=== PATIENT | female | born 1935 | race Caucasian/White ===

== ENCOUNTER 2016-11-10 11:15 | Outpatient (CLI) | payer OTHER | END 2016-11-10 11:16 | disposition home or self-care (01) | DX: N39.0 Urinary tract infection, site not specified (principal) ==

== ENCOUNTER 2016-11-12 | Outpatient (CLI) | END 2016-11-12 23:52 | disposition EMS.NT ==

== ENCOUNTER 2016-11-16 | Outpatient (CLI) | payer OTHER | END 2016-11-16 09:16 | disposition EMS.NT ==

== ENCOUNTER 2017-01-01 14:57 | Emergency (ER) | payer OTHER ==
[2017-01-01] MEDS ORDERED: CIPROFLOXACIN 250 MG TABLET PO STA (15:54)
[2017-01-01] MEDS ORDERED: CIPROFLOXACIN 250 MG TABLET PO ONE (16:09)
== END 2017-01-01 16:14 | disposition home or self-care (01) ==
DX: N30.00 Acute cystitis without hematuria (principal); I10 Essential (primary) hypertension; G30.9 Alzheimer's disease, unspecified; F02.80 Dementia in other diseases classified elsewhere, unspecified severity, without behavioral disturbance, psychotic disturbance, mood disturbance, and anxiety
CPT/HCPCS: 81001; 87086; 99283; A9270

== ENCOUNTER 2017-01-02 | Outpatient (CLI) | payer OTHER | END 2017-01-02 09:24 | disposition critical access hospital (66) | DX: R46.4 Slowness and poor responsiveness (principal) | CPT/HCPCS: A0425; A0427 ==

== ENCOUNTER 2017-01-02 09:52 | Emergency (ER) | payer OTHER ==
[2017-01-02] MEDS ORDERED: SODIUM CHLORIDE 0.9% 1,000 ML IV ONE (09:56)
[2017-01-02] MEDS ORDERED: CIPROFLOXACIN 250 MG TABLET PO STA (11:32)
[2017-01-02] MEDS ORDERED: CIPROFLOXACIN 250 MG TABLET PO ONE (11:41)
== END 2017-01-02 12:02 | disposition home or self-care (01) ==
DX: N30.00 Acute cystitis without hematuria (principal); G30.9 Alzheimer's disease, unspecified; F02.80 Dementia in other diseases classified elsewhere, unspecified severity, without behavioral disturbance, psychotic disturbance, mood disturbance, and anxiety; I10 Essential (primary) hypertension; E78.00 Pure hypercholesterolemia, unspecified; M19.90 Unspecified osteoarthritis, unspecified site
CPT/HCPCS: 36415; 80053; 83605; 83690; 85025; 87040; 99283; A9270

== ENCOUNTER 2017-01-04 | Outpatient (CLI) | payer OTHER | END 2017-01-04 22:16 | disposition EMS.NT ==

== ENCOUNTER 2017-01-22 19:13 | Outpatient (CLI) | payer OTHER | END 2017-01-22 19:14 | disposition critical access hospital (66) | DX: R53.83 Other fatigue (principal) | CPT/HCPCS: A0425; A0429 ==

== ENCOUNTER 2017-01-22 19:38 | Emergency (ER) | payer OTHER ==
[2017-01-22] MEDS ORDERED: SODIUM CHLORIDE 0.9% 500 ML IV STA (20:23)
== END 2017-01-22 22:31 | disposition home or self-care (01) ==
DX: R53.1 Weakness (principal); R53.83 Other fatigue; I45.19 Other right bundle-branch block; R94.31 Abnormal electrocardiogram [ECG] [EKG]; I10 Essential (primary) hypertension; E78.00 Pure hypercholesterolemia, unspecified; G30.9 Alzheimer's disease, unspecified; F02.80 Dementia in other diseases classified elsewhere, unspecified severity, without behavioral disturbance, psychotic disturbance, mood disturbance, and anxiety; M19.90 Unspecified osteoarthritis, unspecified site; Z86.711 Personal history of pulmonary embolism

== ENCOUNTER 2017-02-07 10:43 | Outpatient (CLI) | payer OTHER | END 2017-02-07 10:44 | disposition critical access hospital (66) | DX: R69 Illness, unspecified (principal) | CPT/HCPCS: A0425; A0429 ==

== ENCOUNTER 2017-02-07 11:07 | Emergency (ER) | payer OTHER ==
--- NOTE | 2017-02-07 12:12 | ED Physician Documentation ---
PD HPI Fall - Stated complaint Stated Complaint: FALL - Chief complaint Chief Complaint: Ext Problem - History obtained from History obtained from: Patient, Family, EMS - History of Present Illness Mechanism of injury: Unknown (she was found on floor at SNF. Unknown down time. No apparent injury. Seemed weak the past day.) Fall distance: Standing position Where injury occurred: Other ([facility]) Timing - onset: Today Injury(ies) location: Other (no apparent injury. Not anticoagulated.) Quality of pain: No: Pain Associated symptoms: Weakness (general weakness per caregivers). 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 - Present Medications Home Medications: Ambulatory Orders Medication Instructions Recorded Confirmed Cholecalciferol (Vitamin D3) 2,000 unit PO DAILY 06/03/14 01/02/17 [Vitamin D-3] Sertraline HCl [Zoloft] 100 mg PO DAILY 06/03/14 01/02/17 Atorvastatin [Lipitor] 0 mg ORAL DAILY 10/31/16 01/02/17 Memantine [Namenda] 10 mg ORAL DAILY 10/31/16 01/02/17 Ciprofloxacin HCl [Cipro] 250 mg PO DAILY #14 tablet 01/01/17 01/02/17 - Allergies Allergies/Adverse Reactions: Allergies Allergy/AdvReac Type Severity Reaction Status Date / Time No Known Drug Allergies Allergy Verified 01/02/17 09:56 - Social History Does the pt smoke?: No Smoking Status: Never smoker Does the pt drink ETOH?: No Does the pt have substance abuse?: No - Immunizations Immunizations are current?: Yes - POLST Patient has POLST: No PD ED PE NORMAL - Vitals Vital signs reviewed: Yes - General General: No acute distress, Well developed/nourished, Other (alert and answers simply. Not oriented c/w dementia. ) - HEENT HEENT: Atraumatic - Neck Neck: Supple, no meningeal sign, No adenopathy - Cardiac Cardiac: RRR, No murmur - Respiratory Respiratory: Clear bilaterally - Abdomen Abdomen: Soft, Non tender - Back Back: No CVA TTP, No spinal TTP - Derm Derm: Normal color, Warm and dry - Extremities Extremities: No tenderness to palpate, Normal ROM s pain - Neuro Neuro: No motor deficit, No sensory deficit Results - Vitals Vitals: Vital Signs - 24 hr 02/07/17 15:40 Temperature 36.5 C Heart Rate 74 Respiratory 16 Rate Blood Pressure 138/64 H O2 Saturation 96 Oxygen O2 Source [] Room air O2 Source [] Room air O2 Source Room air - Labs Labs: Microbiology 02/07/17 12:58 Urine Culture - Preliminary Urine,Clean Catch No growth Laboratory Tests 02/07/17 02/07/17 02/07/17 12:58 14:35 14:35 WBC 6.4 RBC 4.56 Hgb 13.5 Hct 40.1 MCV 87.9 MCH 29.6 MCHC 33.6 RDW 14.2 Plt Count 270 MPV 9.3 Neut # 4.2 Lymph # 1.3 L [place] # 0.7 Eos # 0.2 Baso # 0.1 Absolute Nucleated RBC 0.00 Nucleated RBCs 0.0 Manual Slide Review Indicated Platelet Estimate NORMAL (130-450,000) Sodium 139 Potassium 4.0 Chloride 106 Carbon Dioxide 26 Anion Gap 7.0 BUN 18 Creatinine 0.9 Estimated GFR (MDRD) 60 L Glucose 98 Calcium 9.3 Magnesium 1.9 Total Bilirubin 0.6 AST 25 ALT 22 Alkaline Phosphatase 69 Total Creatine Kinase 34 Total Protein 6.5 L Albumin 3.6 Globulin 2.9 Albumin/Globulin Ratio 1.2 Lipase 17 L Urine Color YELLOW Urine Clarity CLEAR Urine pH 6.0 Ur Specific [place] >=1.030 H Urine Protein TRACE Urine Glucose (UA) NEGATIVE Urine Ketones NEGATIVE Urine Occult Blood SMALL H Urine Nitrite NEGATIVE Urine Bilirubin NEGATIVE Urine Urobilinogen 0.2 (NORMAL) Ur Leukocyte Esterase NEGATIVE Urine RBC 0-5 Urine WBC 4-5 Ur Squamous Epith Cells NONE SEEN Urine Bacteria Moderate H Ur Microscopic Review INDICATED Urine Culture Comments INDICATED - Rads (name of study) chest Radiology: Prelim report reviewed, EMP read contemporaneously (normal) PD MEDICAL DECISION MAKING - ED course Complexity details: considered differential, d/w patient (dementia so not much information from her. Seems well and basic exam/labs are okay. ) Departure - Departure Disposition: 01 Home, Self Care Clinical Impression: Weak Fall Qualifiers: Encounter type: initial encounter Qualified Code(s): W19.XXXA - Unspecified fall, initial encounter Condition: Stable Record reviewed to determine appropriate education?: Yes Instructions: ED Weakness [facility] Follow-Up: Denisse Rose PA-C [Primary Care Provider] - Comments: Usual medications. Encourage fluids. Follow up PMD. No acute problem found on basic labs and exam here. Discharge Date/Time: 02/07/17 16:15
[2017-02-07 13:31] LABS: BILIRUBIN,URINE NEGATIVE (NEGATIVE)
[2017-02-07 13:32] LABS: UA w/ MICROSCOPIC CHARGE YES
--- NOTE | 2017-02-07 13:32 | XRAY Preliminary Report ---
Exam: XR Chest 1 View IMPRESSION: 1. Low lung volumes with probable bibasilar atelectasis. 2. Mild left heart enlargement without evidence of acute edema. [facility] SITE ID: [id number]
--- NOTE | 2017-02-07 13:34 | XRAY Report ---
EXAM: CHEST RADIOGRAPHY EXAM DATE: 02/07/2017 01:03 PM. CLINICAL HISTORY: Weakness, dementia. COMPARISON: 07/26/2016. TECHNIQUE: 1 view. FINDINGS: Lungs/Pleura: Lung volumes are diminished. The left diaphragmatic silhouette is partially obscured. S ome linear opacity noted at the right base. Overlying soft tissues somewhat limits evaluation of the lung bases. The upper lungs are clear. No vascular congestion. Mediastinum: Mildly enlarged left ventricular contour. Other: None. IMPRESSION: 1. Low lung volumes with probable bibasilar atelectasis. 2. Mild left heart enlargement without evidence of acute edema. [facility] Referring Provider Line: [phone] SITE ID: [id number]
[2017-02-07 13:59] LABS: UR CULTURE IF IND INDICATED
[2017-02-07 14:41] LABS: BASOPHILS # (AUTO) 0.1 10^3/uL (0.0-0.1); BASOPHILS % (AUTO) 0.9 %; EOSINOPHILS # (AUTO) 0.2 10^3/uL (0.0-0.7); EOSINOPHILS % (AUTO) 3.2 %; HCT - HEMATOCRIT 40.1 % (37.0-47.0); HGB - HEMOGLOBIN 13.5 g/dL (12.0-16.0); LYMPHOCYTES # (AUTO) 1.3 10^3/uL (1.5-3.5); LYMPHOCYTES % (AUTO) 20.3 %; MEAN CORPUSCULAR HEMOGLOBIN 29.6 pg (27.0-31.0); MEAN CORPUSCULAR HGB CONC 33.6 g/dL (32.0-36.0); MEAN CORPUSCULAR VOLUME 87.9 fL (81.0-99.0); MEAN PLATELET VOLUME 9.3 fL (7.9-10.8); MONOCYTES # (AUTO) 0.7 10^3/uL (0.0-1.0); MONOCYTES % (AUTO) 10.4 %; NEUTROPHILS # (AUTO) 4.2 10^3/uL (1.5-6.6); NEUTROPHILS % (AUTO) 65.2 %; RED BLOOD COUNT 4.56 10^6/uL (4.20-5.40); RED CELL DISTRIBUTION WIDTH 14.2 % (12.0-15.0); UNCORRECTED WHITE BLOOD COUNT 6.4 x10^3/uL; WHITE BLOOD COUNT 6.4 x10^3/uL (4.8-10.8)
[2017-02-07 14:52] LABS: ALBUMIN/GLOBULIN RATIO 1.2 (1.0-2.2); BILIRUBIN,TOTAL 0.6 mg/dL (0.2-1.0); CALCIUM 9.3 mg/dL (8.5-10.3); CREATININE 0.9 mg/dL (0.4-1.0); MAGNESIUM 1.9 mg/dL (1.7-2.8); TOTAL PROTEIN 6.5 g/dL (6.7-8.2)
[2017-02-07 14:58] LABS: PLATELET ESTIMATE, MANUAL NORMAL (130-450,000) (NORMAL)
[2017-02-07 15:40] VITALS: BP 138/64
== END 2017-02-07 16:15 | disposition home or self-care (01) ==
LOC: EDUNIT# → ED 11:07
DX: R53.1 Weakness (principal); W01.0XXA Fall on same level from slipping, tripping and stumbling without subsequent striking against object, initial encounter; Y92.122 Bedroom in nursing home as the place of occurrence of the external cause; I10 Essential (primary) hypertension; E78.00 Pure hypercholesterolemia, unspecified; G30.9 Alzheimer's disease, unspecified; F02.80 Dementia in other diseases classified elsewhere, unspecified severity, without behavioral disturbance, psychotic disturbance, mood disturbance, and anxiety; M19.90 Unspecified osteoarthritis, unspecified site
CPT/HCPCS: 36415; 71010; 80053; 81001; 81003; 82550; 83690; 83735; 85025; 87086; 99283

== ENCOUNTER 2017-02-14 16:57 | Outpatient (CLI) | payer MEDICARE | END 2017-02-14 16:58 | disposition critical access hospital (66) | DX: R69 Illness, unspecified (principal) | CPT/HCPCS: A0425; A0429 ==

== ENCOUNTER 2017-02-14 17:21 | Observation (INO) | payer MEDICARE, OTHER ==
[2017-02-14] MEDS ORDERED: SODIUM CHLORIDE 0.9% 1,000 ML IV ONE (20:15)
[2017-02-14] MEDS ORDERED: ONDANSETRON 4 MG/2 ML VIAL IVP PRN (22:57)
[2017-02-14] MEDS ORDERED: ACETAMINOPHEN 325 MG TABLET PO PRN (22:57)
[2017-02-14] MEDS ORDERED: SODIUM CHLORIDE FLUSH 0.9% 10 ML SYRINGE IVP PRN (22:57)
[2017-02-15] MEDS: SODIUM CHLORIDE 0.9% 1,000 ML IV SCH ×2 (00:02→10:28)
[2017-02-15] MEDS ORDERED: SODIUM CHLORIDE FLUSH 0.9% 10 ML SYRINGE IVP SCH (06:00)
[2017-02-15] MEDS ORDERED: ENOXAPARIN 40 MG/0.4 ML SYRINGE SUBQ SCH (09:00)
[2017-02-15] MEDS ORDERED: POLYETHYLENE GLYCOL 3350 17 GM PACKET PO SCH (09:00)
[2017-02-15] MEDS ORDERED: SULFAMETH/TRIMETH DS 800/160 MG TABLET PO SCH (11:00)
== END 2017-02-15 12:44 | disposition home or self-care (01) ==
DX: E86.0 Dehydration (principal); N39.0 Urinary tract infection, site not specified; G30.9 Alzheimer's disease, unspecified; F02.80 Dementia in other diseases classified elsewhere, unspecified severity, without behavioral disturbance, psychotic disturbance, mood disturbance, and anxiety; I10 Essential (primary) hypertension; F32.9 Major depressive disorder, single episode, unspecified; E78.5 Hyperlipidemia, unspecified; Z91.81 History of falling; G93.40 Encephalopathy, unspecified
CPT/HCPCS: 36415; 51701; 51798; 70450; 71020; 80048; 80053; 81001; 82550; 82553; 83735; 84100; 84484; 85025; 87086; 87275; 87276; 93005; 96360; 96361; 96372; 97161; 97165; 99284; A9270; G0378; G8978; G8979; G8986; G8987; G8988; J1650

== ENCOUNTER 2017-02-19 23:24 | Outpatient (CLI) | payer MEDICARE | END 2017-02-19 23:25 | disposition EMS.NT | DX: R53.1 Weakness (principal); W18.30XA Fall on same level, unspecified, initial encounter; Y92.009 Unspecified place in unspecified non-institutional (private) residence as the place of occurrence of the external cause ==

== ENCOUNTER 2017-03-02 08:00 | Outpatient (CLI) | payer MEDICARE, OTHER | END 2017-03-02 23:59 | disposition home or self-care (01) | DX: N30.90 Cystitis, unspecified without hematuria (principal) ==

== ENCOUNTER 2017-06-03 14:27 | Outpatient (CLI) | payer MEDICARE, OTHER | END 2017-06-03 14:28 | disposition home or self-care (01) | LOC: LAB.F 14:27 | PROVIDERS: ATTEND Physician Assistant Medical | DX: R45.1 Restlessness and agitation (principal); R63.0 Anorexia | CPT/HCPCS: 36415; 84443 ==

== ENCOUNTER 2017-08-23 08:00 | Outpatient (CLI) | payer MEDICARE, OTHER ==
[2017-08-24 18:07] LABS: BILIRUBIN,URINE NEGATIVE (NEGATIVE)
[2017-08-24 18:52] LABS: WBC,URINE >25 /HPF (0-5)
[2017-08-24 18:53] LABS: UR CULTURE IF IND NOT INDICATED
== END 2017-08-23 23:59 | disposition home or self-care (01) ==
LOC: LAB.F 08:00
PROVIDERS: ATTEND Family Medicine
DX: N30.90 Cystitis, unspecified without hematuria (principal); N39.0 Urinary tract infection, site not specified; N28.9 Disorder of kidney and ureter, unspecified
CPT/HCPCS: 81001; 87086

== ENCOUNTER 2018-03-16 10:30 | Outpatient (CLI) | payer MEDICARE, OTHER ==
[2018-03-17 11:29] LABS: BILIRUBIN,URINE NEGATIVE (NEGATIVE); GLUCOSE, URINE (UA) NEGATIVE (NEGATIVE); KETONES,URINE (UA) NEGATIVE (NEGATIVE); LEUKOCYTE ESTERASE, URINE TRACE (NEGATIVE); NITRITE,URINE POSITIVE (NEGATIVE); OCCULT BLOOD,URINE NEGATIVE (NEGATIVE); PROTEIN,URINE NEGATIVE (NEGATIVE); UROBILINOGEN,URINE 0.2 (NORMAL) E.U./dL (NORMAL)
[2018-03-17 11:31] LABS: CLARITY,URINE CLOUDY (CLEAR)
[2018-03-17 11:54] LABS: BACTERIA,URINE Many /HPF (None Seen); RBC,URINE 0-5 /HPF (0-5); SQUAMOUS EPITHELIAL CELL,UR MANY Squamous (<= Few)
== END 2018-03-16 10:31 | disposition home or self-care (01) ==
LOC: LAB.R 10:30
PROVIDERS: ATTEND Physician Assistant Medical
DX: N30.90 Cystitis, unspecified without hematuria (principal); N25.9 Disorder resulting from impaired renal tubular function, unspecified; R45.1 Restlessness and agitation; F01.51 Vascular dementia, unspecified severity, with behavioral disturbance
CPT/HCPCS: 81001; 81003; 87086

== ENCOUNTER 2018-03-22 14:55 | Outpatient (CLI) | payer OTHER ==
[2018-03-22 17:41] LABS: BILIRUBIN,URINE NEGATIVE (NEGATIVE); GLUCOSE, URINE (UA) NEGATIVE (NEGATIVE); KETONES,URINE (UA) NEGATIVE (NEGATIVE); LEUKOCYTE ESTERASE, URINE MODERATE (NEGATIVE); NITRITE,URINE POSITIVE (NEGATIVE); OCCULT BLOOD,URINE TRACE-INTA (NEGATIVE); PH,URINE 6.5 PH (5.0-7.5); PROTEIN,URINE NEGATIVE (NEGATIVE); UROBILINOGEN,URINE 0.2 (NORMAL) E.U./dL (NORMAL)
[2018-03-22 17:48] LABS: CLARITY,URINE CLOUDY (CLEAR)
[2018-03-22 17:57] LABS: BACTERIA,URINE Many /HPF (None Seen); RBC,URINE 0-5 /HPF (0-5); SQUAMOUS EPITHELIAL CELL,UR MANY Squamous (<= Few)
== END 2018-03-22 14:56 | disposition home or self-care (01) ==
LOC: LAB.R 14:55
PROVIDERS: ATTEND Physician Assistant Medical
DX: N30.90 Cystitis, unspecified without hematuria (principal); N25.9 Disorder resulting from impaired renal tubular function, unspecified; R45.1 Restlessness and agitation; F01.51 Vascular dementia, unspecified severity, with behavioral disturbance
CPT/HCPCS: 81001; 87086

== ENCOUNTER 2018-03-31 10:43 | Outpatient (CLI) | payer OTHER ==
[2018-03-31 18:57] LABS: ALBUMIN/GLOBULIN RATIO 1.4 (1.0-2.2); ALKALINE PHOSPHATASE 57 IU/L (42-121); ALT ALANINE AMINOTRANSFERASE 25 IU/L (10-60); AST ASPARTATE AMINOTRANSFERASE 27 IU/L (10-42); BILIRUBIN,TOTAL 0.9 mg/dL (0.2-1.0); BUN - BLOOD UREA NITROGEN 22 mg/dL (6-20); CALCIUM 9.5 mg/dL (8.5-10.3); CARBON DIOXIDE - CO2 27 mmol/L (21-32); CHLORIDE 106 mmol/L (101-111); CHOL/HDL RATIO 3.9 (<4.4); CHOLESTEROL 245 mg/dL; CREATININE 0.9 mg/dL (0.4-1.0); GFR - MDRD 60 (>89); GLUCOSE 84 mg/dL (70-100); HDL CHOLESTEROL 63 mg/dL; LDL CHOLESTEROL,CALCULATED 166 mg/dL; LDL/HDL RATIO 2.6 (<4.4); SODIUM 141 mmol/L (135-145); TOTAL PROTEIN 6.9 g/dL (6.7-8.2); VLDL CHOLESTEROL 16 mg/dL
[2018-03-31 18:58] LABS: BASOPHILS % (AUTO) 0.6 %; EOSINOPHILS # (AUTO) 0.1 10^3/uL (0.0-0.7); EOSINOPHILS % (AUTO) 2.1 %; HGB - HEMOGLOBIN 14.6 g/dL (12.0-16.0); LYMPHOCYTES # (AUTO) 1.4 10^3/uL (1.5-3.5); LYMPHOCYTES % (AUTO) 24.7 %; MEAN CORPUSCULAR HEMOGLOBIN 30.7 pg (27.0-31.0); MEAN CORPUSCULAR HGB CONC 32.9 g/dL (32.0-36.0); MEAN CORPUSCULAR VOLUME 93.4 fL (81.0-99.0); MEAN PLATELET VOLUME 9.8 fL (7.9-10.8); MONOCYTES # (AUTO) 0.6 10^3/uL (0.0-1.0); MONOCYTES % (AUTO) 10.5 %; NEUTROPHILS # (AUTO) 3.6 10^3/uL (1.5-6.6); NEUTROPHILS % (AUTO) 62.1 %; PLT - PLATELET COUNT 263 10^3/uL (130-450); RED BLOOD COUNT 4.75 10^6/uL (4.20-5.40); RED CELL DISTRIBUTION WIDTH 13.6 % (12.0-15.0); WHITE BLOOD COUNT 5.8 x10^3/uL (4.8-10.8)
== END 2018-03-31 10:44 | disposition home or self-care (01) ==
LOC: LAB.F 10:43
PROVIDERS: ATTEND Physician Assistant Medical
DX: N30.90 Cystitis, unspecified without hematuria (principal); Z51.81 Encounter for therapeutic drug level monitoring; E78.5 Hyperlipidemia, unspecified
CPT/HCPCS: 36415; 80053; 80061; 83721; 85025

== ENCOUNTER 2018-04-12 08:00 | Outpatient (CLI) | payer OTHER | END 2018-04-12 08:01 | disposition home or self-care (01) | LOC: LAB.R 08:00 | PROVIDERS: ATTEND Physician Assistant Medical | DX: N30.90 Cystitis, unspecified without hematuria (principal) | CPT/HCPCS: 87086 ==

== ENCOUNTER 2018-09-14 15:04 | Outpatient (CLI) | payer OTHER | END 2018-09-14 15:05 | disposition EMS.NT | LOC: EMS 15:04 | PROVIDERS: ATTEND Surgery | DX: R55 Syncope and collapse (principal) ==

== ENCOUNTER 2018-12-12 08:00 | Outpatient (CLI) | payer OTHER | END 2018-12-12 23:59 | disposition home or self-care (01) | LOC: LAB.R 08:00 | PROVIDERS: ATTEND Registered Nurse | DX: N30.90 Cystitis, unspecified without hematuria (principal) | CPT/HCPCS: 87086; 87181 ==

== ENCOUNTER 2019-03-15 20:44 | Outpatient (CLI) | payer OTHER | END 2019-03-15 20:45 | disposition EMS.NT | LOC: EMS 20:44 | PROVIDERS: ATTEND Surgery | DX: R11.10 Vomiting, unspecified (principal); R19.7 Diarrhea, unspecified ==

== ENCOUNTER 2019-03-27 08:00 | Outpatient (CLI) | payer OTHER ==
[2019-03-27 17:36] LABS: BILIRUBIN,URINE NEGATIVE (NEGATIVE); GLUCOSE, URINE (UA) NEGATIVE (NEGATIVE); KETONES,URINE (UA) NEGATIVE (NEGATIVE); LEUKOCYTE ESTERASE, URINE TRACE (NEGATIVE); NITRITE,URINE NEGATIVE (NEGATIVE); OCCULT BLOOD,URINE NEGATIVE (NEGATIVE); PH,URINE 6.5 PH (5.0-7.5); PROTEIN,URINE TRACE mg/dL (NEGATIVE); UROBILINOGEN,URINE 0.2 (NORMAL) E.U./dL (NORMAL)
[2019-03-27 17:57] LABS: BACTERIA,URINE Rare /HPF (None Seen); CLARITY,URINE CLEAR (CLEAR); RBC,URINE None Seen /HPF (0-5); SQUAMOUS EPITHELIAL CELL,UR MANY Squamous (<= Few)
== END 2019-03-27 23:59 | disposition home or self-care (01) ==
LOC: LAB.R 08:00
PROVIDERS: ATTEND Physician Assistant Medical
DX: N30.90 Cystitis, unspecified without hematuria (principal); N25.9 Disorder resulting from impaired renal tubular function, unspecified; R45.1 Restlessness and agitation; F01.51 Vascular dementia, unspecified severity, with behavioral disturbance
CPT/HCPCS: 81001; 87086

== ENCOUNTER 2019-05-13 12:05 | Emergency (ER) | payer OTHER ==
--- NOTE | 2019-05-13 12:15 | ED Physician Documentation ---
PD HPI FEMALE - Stated complaint Stated Complaint: URINATING BLOOD - History obtained from History obtained from: Patient - History of Present Illness Timing - onset: Last night (Caregivers noted the patient to be acting a little bit more agitated and have strong smelling urine last night into today. There was some hematuria noted today with urine.), Yesterday Timing - duration: Days (1) Timing - details: Abrupt onset, Still present Associated symptoms: No: Fever, Back pain Similar symptoms before: Diagnosis (UTIs with odor and agitations; has not had the hematuria with them before. Last UTI was just only 2 months ago.) Review of Systems Unable to obtain: Dementia Constitutional: denies: Fever Nose: denies: Rhinorrhea / runny nose, Congestion Respiratory: denies: Cough GI: denies: Abdominal Pain, Vomiting, Diarrhea Musculoskeletal: reports: Extremity pain (lump with mild tenderness left anterior upper thigh, per caregiver/son, not aware of injury. 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 - Present Medications Home Medications: Ambulatory Orders Medication Instructions Recorded Confirmed Cholecalciferol (Vitamin D3) 2,000 unit PO DAILY 06/03/14 02/15/17 [Vitamin D3] Acetaminophen [Tylenol] 650 mg PO Q4HR PRN #0 tablet 02/15/17 Aspirin [Aspirin EC] 325 mg PO DAILY 02/15/17 02/15/17 Atorvastatin Calcium 40 mg PO QPM 02/15/17 02/15/17 LORazepam [Ativan] 0.25 - 0.5 mg PO BID PRN 02/15/17 02/15/17 Memantine HCl [Namenda] 10 mg PO BID 02/15/17 02/15/17 Sertraline HCl [Zoloft] 150 mg PO DAILY 02/15/17 02/15/17 Sulfamethox/Trimeth 800/160 1 tab PO BID #6 tablet 02/15/17 [Bactrim Ds] Cephalexin [Keflex] 500 mg PO TID #21 capsule 05/13/19 - Allergies Allergies/Adverse Reactions: Allergies Allergy/AdvReac Type Severity Reaction Status Date / Time No Known Drug Allergies Allergy Verified 01/02/17 09:56 - Social History Does the pt smoke?: No Smoking Status: Never smoker Does the pt drink ETOH?: No Does the pt have substance abuse?: No - Immunizations Immunizations are current?: Yes - POLST Patient has POLST: No PD ED PE NORMAL - Vitals Vital signs reviewed: Yes - General General: No acute distress, Well developed/nourished, Other. No: Alert and oriented X 3 (eyes open but minimally verbal and confused, c/w her dementia, per caregiver. ) - Neck Neck: Supple, no meningeal sign, No adenopathy - Cardiac Cardiac: RRR, No murmur - Respiratory Respiratory: Clear bilaterally - Abdomen Abdomen: Soft, Non tender - Derm Derm: Normal color, Warm and dry - Extremities Extremities: Other (small area of tenderness anterior prox left thigh. and mild bruising yellow color below that. Not tender medial thigh nor calf area. No edema in the legs. ) - Neuro Neuro: No motor deficit, No sensory deficit Results - Vitals Vitals: Vital Signs - 24 hr 05/13/19 05/13/19 12:13 15:27 Temperature 36.4 C L 36.5 C Heart Rate 89 69 Respiratory 18 20 Rate Blood Pressure 120/64 110/96 H O2 Saturation 94 95 Oxygen O2 Source [With Activity] Room air O2 Source [Without Activity] Room air O2 Source Room air - Labs Labs: Laboratory Tests 05/13/19 13:46 Urine Color YELLOW Urine Clarity CLOUDY Urine pH 7.0 Ur Specific [place] 1.010 Urine Protein NEGATIVE Urine Glucose (UA) NEGATIVE Urine Ketones NEGATIVE Urine Occult Blood LARGE H Urine Nitrite POSITIVE H Urine Bilirubin NEGATIVE Urine Urobilinogen 0.2 (NORMAL) Ur Leukocyte Esterase LARGE H Urine RBC 6-10 H Urine WBC >25 H Ur Squamous Epith Cells FEW Squamous Urine Bacteria Moderate H Ur Microscopic Review INDICATED Urine Culture Comments INDICATED - Rads (name of study) duplex left thigh Radiology: Prelim report reviewed (no DVT. ), See rad report PD MEDICAL DECISION MAKING - ED course Complexity details: reviewed results, considered differential, d/w family ED course: We were going to discharge the patient after obtaining a urine sample and treated for UTI. She does not appear ill or septic. The patient's son then said a another family member who is out of state had called and requested an ultrasound of the leg that has the small tender spot on the thigh. This seemed clinically low suspicion and she is on Xarelto. However trying to call back the other relative she did not answer the phone and so a was not able to discuss it with her. We will get a duplex to ensure no clot. Departure - Departure Disposition: 01 Home, Self Care Clinical Impression: Contusion of left thigh, initial encounter UTI (urinary tract infection) Qualifiers: Urinary tract infection type: acute cystitis Hematuria presence: with hematuria Qualified Code(s): N30.01 - Acute cystitis with hematuria Clinical Impression: (Ruled Out): DVT of lower extremity (deep venous thrombosis) Condition: Stable Record reviewed to determine appropriate education?: Yes Instructions: ED UTI Cystitis Female Follow-Up: Denisse Rose PA-C [Primary Care Provider] - Prescriptions: Cephalexin [Keflex] 500 mg PO TID #21 capsule Comments: Stay well-hydrated. Continue usual medications including your Xarelto. Some bleeding with a bladder infection is not unusual or uncommon. This should improve his infection clears. Cephalexin 3 times a day for a week for the infection. Recheck if the urine is not seeming clear and bleeding improved over the next 2 to 3 days. Return if worse. No blood clots seen on ultrasound. Presume its a small bruising with local tenderness and firmness. This should improve with time. Discharge Date/Time: 05/13/19 15:31
[2019-05-13] MEDS ORDERED: cefTRIAXone 1 GM VIAL IM STA (12:38)
[2019-05-13] MEDS ORDERED: LIDOCAINE 1% 2 ML VIAL MC ONE (12:38)
[2019-05-13 13:54] LABS: BILIRUBIN,URINE NEGATIVE (NEGATIVE); GLUCOSE, URINE (UA) NEGATIVE (NEGATIVE); KETONES,URINE (UA) NEGATIVE (NEGATIVE); LEUKOCYTE ESTERASE, URINE LARGE (NEGATIVE); NITRITE,URINE POSITIVE (NEGATIVE); OCCULT BLOOD,URINE LARGE (NEGATIVE); PROTEIN,URINE NEGATIVE (NEGATIVE); UROBILINOGEN,URINE 0.2 (NORMAL) E.U./dL (NORMAL)
[2019-05-13 13:57] LABS: CLARITY,URINE CLOUDY (CLEAR)
[2019-05-13 14:02] LABS: BACTERIA,URINE Moderate /HPF (None Seen); SQUAMOUS EPITHELIAL CELL,UR FEW Squamous (<= Few)
[2019-05-13 15:28] VITALS: BP 110/96
--- NOTE | 2019-05-13 15:48 | Ultrasound Report ---
Reason: tender area left anterior thigh, on Xarelto Procedure Date: 05/13/2019 Accession Number: [id number] / [id number] Procedure: US - Duplex Ext Veins Left CPT Code: FULL RESULT: EXAM: LEFT LOWER EXTREMITY VENOUS ULTRASOUND EXAM DATE: 05/13/2019 03:19 PM. CLINICAL HISTORY: Tender area left anterior thigh, on Xarelto. COMPARISON: DUPLEX EXT VEINS LEFT 03/31/2016 10:10 PM. TECHNIQUE: Real-time sonographic vascular imaging was performed by the brazer crawler torch through the lower extremity utilizing both color-flow and Doppler spectral analysis. Multiple automotive sales representative static images were saved for review. FINDINGS: Common Femoral Vein (CFV): Normal. CFV-GSV Junction: Normal. Profunda Femoral Vein (PFV): Normal. Femoral Vein (FV) Prox: Normal. Femoral Vein (FV) Mid: Normal. Femoral Vein (FV) Dist: Normal. Popliteal Vein: Normal. Posterior Tibial Veins: Normal. Peroneal Veins: Normal. Contralateral Side CFV: Normal. Other: There is a circumscribed, slightly hyperechoic, avascular focus measuring 3 x 1 cm within the left thigh. IMPRESSION: 1. No evidence for deep venous thrombosis. 2. Circumscribed, slightly hyperechoic avascular focus measuring approximately 3 x 1 cm within the left thigh. Differential considerations include hematoma or lipoma. Interval ultrasound follow-up could be used for further evaluation of this finding as indicated. [facility]
== END 2019-05-13 15:31 | disposition home or self-care (01) ==
LOC: ED 12:05
DX: S70.12XA Contusion of left thigh, initial encounter (principal); W22.03XA Walked into furniture, initial encounter; N30.01 Acute cystitis with hematuria; I10 Essential (primary) hypertension; E78.00 Pure hypercholesterolemia, unspecified
CPT/HCPCS: 81001; 81003; 87086; 87181; 96372; 99283; 99284

== ENCOUNTER 2019-09-25 14:37 | Outpatient (CLI) | payer OTHER ==
[2019-09-25 17:24] LABS: BASOPHILS % (AUTO) 0.4 %; EOSINOPHILS # (AUTO) 0.1 10^3/uL (0.0-0.7); HGB - HEMOGLOBIN 14.2 g/dL (12.0-16.0); LYMPHOCYTES # (AUTO) 1.4 10^3/uL (1.5-3.5); MEAN CORPUSCULAR HEMOGLOBIN 30.9 pg (27.0-31.0); MEAN CORPUSCULAR VOLUME 99.6 fL (81.0-99.0); MEAN PLATELET VOLUME 11.6 fL (7.9-10.8); MONOCYTES # (AUTO) 0.6 10^3/uL (0.0-1.0); MONOCYTES % (AUTO) 8.8 %; NEUTROPHILS # (AUTO) 4.7 10^3/uL (1.5-6.6); NEUTROPHILS % (AUTO) 68.5 %; PLT - PLATELET COUNT 310 10^3/uL (130-450); RED CELL DISTRIBUTION WIDTH 14.2 % (12.0-15.0); WHITE BLOOD COUNT 6.9 x10^3/uL (4.8-10.8)
[2019-09-25 17:56] LABS: ALBUMIN 3.7 g/dL (3.2-5.5); ALBUMIN/GLOBULIN RATIO 1.2 (1.0-2.2); BILIRUBIN,TOTAL 0.6 mg/dL (0.2-1.0); CALCIUM 9.5 mg/dL (8.5-10.3); CREATININE 0.9 mg/dL (0.4-1.0); TOTAL PROTEIN 6.8 g/dL (6.7-8.2)
== END 2019-09-25 14:38 | disposition home or self-care (01) ==
LOC: LAB.S 14:37
PROVIDERS: ATTEND Physician Assistant Medical
DX: Z51.81 Encounter for therapeutic drug level monitoring (principal); Z79.899 Other long term (current) drug therapy
CPT/HCPCS: 36415; 80053; 85025

== ENCOUNTER 2020-01-27 14:52 | Outpatient (CLI) | payer OTHER | END 2020-01-27 14:53 | disposition EMS.NT | LOC: EMS 14:52 | PROVIDERS: ATTEND Surgery | DX: R55 Syncope and collapse (principal) ==

== ENCOUNTER 2020-06-17 14:55 | Outpatient (CLI) | payer OTHER ==
[2020-06-17 20:09] LABS: BILIRUBIN,URINE NEGATIVE (NEGATIVE); GLUCOSE, URINE (UA) NEGATIVE (NEGATIVE); KETONES,URINE (UA) NEGATIVE (NEGATIVE); LEUKOCYTE ESTERASE, URINE LARGE (NEGATIVE); NITRITE,URINE NEGATIVE (NEGATIVE); OCCULT BLOOD,URINE SMALL (NEGATIVE); PROTEIN,URINE NEGATIVE (NEGATIVE); UROBILINOGEN,URINE 0.2 (NORMAL) E.U./dL (NORMAL)
[2020-06-17 20:12] LABS: CLARITY,URINE HAZY (CLEAR)
[2020-06-17 20:15] LABS: BACTERIA,URINE Many /HPF (None Seen); SQUAMOUS EPITHELIAL CELL,UR FEW Squamous (<= Few)
== END 2020-06-17 23:59 | disposition home or self-care (01) ==
LOC: LAB.R 14:55
PROVIDERS: ATTEND Registered Nurse
DX: N30.90 Cystitis, unspecified without hematuria (principal)
CPT/HCPCS: 81001; 87086; 87181

== ENCOUNTER 2020-07-09 10:42 | Outpatient (CLI) | payer OTHER | END 2020-07-09 10:43 | disposition critical access hospital (66) | LOC: EMS 10:42 | PROVIDERS: ATTEND Surgery | DX: R41.82 Altered mental status, unspecified (principal); I95.9 Hypotension, unspecified; R50.9 Fever, unspecified | CPT/HCPCS: A0425; A0427 ==

== ENCOUNTER 2020-07-09 11:10 | Inpatient (IN) | payer OTHER ==
--- NOTE | 2020-07-09 11:48 | ED Physician Documentation ---
History of Present Illness - Stated complaint Stated Complaint: FEVER/AMS - Chief complaint Chief Complaint: Fever - History obtained from History obtained from: EMS - Additonal information Additional information: 84-year-old female presents to the emergency department for evaluation of fever and altered mental status. By history she has baseline dementia [place] [facility] [place] by staff this a.m. the staff noted that she was more altered than normal and had a fever of 101.3. She may have also recently completed a course of antibiotics for a urinary tract infection. History and this young lady is other farris unable to obtain as she is nonverbal for me and responding to noxious stimuli only. I do note that she is on Xarelto for history of DVT. She does not have any signs of trauma or falls but again the history is limited. Review of Systems Unable to obtain: Dementia Constitutional: reports: Fever. 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 - Present Medications Home Medications: Ambulatory Orders Medication Instructions Recorded Confirmed Acetaminophen [Tylenol] 650 mg PO Q4HR PRN #0 tablet 02/15/17 07/09/20 Aspirin [Aspirin EC] 325 mg PO DAILY 02/15/17 02/15/17 Atorvastatin Calcium 40 mg PO QPM 02/15/17 07/09/20 LORazepam [Ativan] 0.5 mg PO Q8HR PRN 02/15/17 07/09/20 Memantine HCl [Namenda] 10 mg PO BID 02/15/17 07/09/20 Sertraline HCl [Zoloft] 100 mg PO DAILY 02/15/17 07/09/20 Rivaroxaban [Xarelto] 15 mg PO DAILY 07/09/20 07/09/20 bisacodyL [Dulcolax] 1 tab ORAL DAILY PRN 07/09/20 07/09/20 - Allergies Allergies/Adverse Reactions: Allergies Allergy/AdvReac Type Severity Reaction Status Date / Time No Known Drug Allergies Allergy Verified 07/09/20 11:20 - Social History Does the pt smoke?: No Smoking Status: Never smoker Does the pt drink ETOH?: No Does the pt have substance abuse?: No - Immunizations Immunizations are current?: Yes - POLST Patient has POLST: No PD ED PE NORMAL - General General: No acute distress - HEENT HEENT: Atraumatic, PERRL, EOMI, Moist mucous membranes, Pharynx benign - Neck Neck: Supple, no meningeal sign, No adenopathy - Cardiac Cardiac: RRR, No murmur - Respiratory Respiratory: No respiratory distress - Abdomen Abdomen: Normal bowel sounds, Soft, Non tender, Non distended - Derm Derm: Normal color, Warm and dry - Neuro Eye Opening: To Pain Motor: Localizes to Pain Verbal: Incomprehensible GCS Score: 9 Results - Vitals Vitals: Vital Signs - 24 hr 07/09/20 07/09/20 07/09/20 11:20 11:24 11:31 Temperature 38 C H 38 C H 38 C H Heart Rate 68 68 68 Respiratory 14 14 26 H Rate Blood Pressure 108/94 H 108/94 H 108/94 H O2 Saturation 96 96 96 07/09/20 07/09/20 07/09/20 12:08 12:30 13:00 Temperature Heart Rate 65 66 67 Respiratory 18 22 Rate Blood Pressure 124/107 H 93/47 L 124/107 H O2 Saturation 94 95 97 07/09/20 07/09/20 07/09/20 13:19 14:24 14:37 Temperature 36.1 C L Heart Rate 96 67 68 Respiratory 14 24 Rate Blood Pressure 88/61 L 91/54 L 98/52 L O2 Saturation 96 94 96 07/09/20 14:57 Temperature 36.3 C L Heart Rate 64 Respiratory 22 Rate Blood Pressure 98/52 L O2 Saturation 95 Oxygen O2 Source [] Room air O2 Source [] Room air O2 Source Room air - Labs Labs: Laboratory Tests 07/09/20 07/09/20 07/09/20 11:30 11:30 11:30 WBC 7.4 RBC 4.12 L Hgb 13.2 Hct 39.8 MCV 96.6 MCH 32.0 H MCHC 33.2 RDW 13.1 Plt Count 211 MPV 11.4 H Neut # (Auto) 5.6 Lymph # (Auto) 0.8 L [place] # (Auto) 1.0 Eos # (Auto) 0.0 Baso # (Auto) 0.0 Absolute Nucleated RBC 0.00 Nucleated RBC % 0.0 Sodium 135 Potassium 4.0 Chloride 100 L Carbon Dioxide 29 Anion Gap 6.0 BUN 14 Creatinine 1.0 Estimated GFR (MDRD) 53 L Glucose 102 H Lactic Acid 0.9 Calcium 8.7 Total Bilirubin 0.8 AST 21 ALT 20 Alkaline Phosphatase 54 Total Protein 6.0 L Albumin 3.4 Globulin 2.6 Albumin/Globulin Ratio 1.3 Urine Color Urine Clarity Urine pH Ur Specific [place] Urine Protein Urine Glucose (UA) Urine Ketones Urine Occult Blood Urine Nitrite Urine Bilirubin Urine Urobilinogen Ur Leukocyte Esterase Urine RBC Urine WBC Urine WBC Clumps Ur Squamous Epith Cells Urine Bacteria Ur Microscopic Review Urine Culture Comments 07/09/20 07/09/20 07/09/20 12:05 13:45 14:47 WBC RBC Hgb Hct MCV MCH MCHC RDW Plt Count MPV Neut # (Auto) Lymph # (Auto) [place] # (Auto) Eos # (Auto) Baso # (Auto) Absolute Nucleated RBC Nucleated RBC % Sodium Potassium Chloride Carbon Dioxide Anion Gap BUN Creatinine Estimated GFR (MDRD) Glucose Lactic Acid 1.0 Calcium Total Bilirubin AST ALT Alkaline Phosphatase Total Protein Albumin Globulin Albumin/Globulin Ratio Urine Color YELLOW YELLOW Urine Clarity CLOUDY CLOUDY Urine pH 7.0 7.0 Ur Specific [place] 1.020 1.020 Urine Protein 30 H 30 H Urine Glucose (UA) NEGATIVE NEGATIVE Urine Ketones NEGATIVE NEGATIVE Urine Occult Blood MODERATE H MODERATE H Urine Nitrite NEGATIVE NEGATIVE Urine Bilirubin NEGATIVE NEGATIVE Urine Urobilinogen 1 (NORMAL) 1 (NORMAL) Ur Leukocyte Esterase SMALL H MODERATE H Urine RBC 6-10 H 0-5 Urine WBC >25 H >25 H Urine WBC Clumps PRESENT Ur Squamous Epith Cells MOD Squamous H FEW Squamous Urine Bacteria Many H Many H Ur Microscopic Review INDICATED Urine Culture Comments NOT INDICATED INDICATED - Rads (name of study) CT head Radiology: Prelim report reviewed (no acute intracranial finding. 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 It is felt that an abscess is unlikely in this location. No other findings suspicious for abscess. Rectal fecal i) PD MEDICAL DECISION MAKING - ED course Complexity details: reviewed results, considered differential, d/w patient ED course: 84-year-old female presents to the emergency department for evaluation of fever and altered mental status. She does have a known history of dementia at baseline but is more altered than normal per the care staff. Here in the emergency department today we did proceed with CT head imaging that showed no acute findings. Her urine looks contaminated with multiple squames and bacteria though it was a urine catheterization. I have asked the nursing staff to repeat the urine cath. Reassuringly her lactic acid is not elevated. She does have pending blood cultures. Chest x-ray shows no acute focal opacity. At this time would like to bring her in for an altered mental status. I have ordered Rocephin as this does likely represent a urinary infection 1300: I spoke spoke with Dr. Cameron Mancini admitting hospitalist. We will admit for altered mental status as long as the CT of the abdomen does not show any obstructive uropathy 1430: I was notified by nursing staff that patient has developed some hypotension with blood pressures in the 90s over 60s. I have ordered IV fluids per the sepsis protocol. Patient has received meropenem and ceftriaxone. She is also returned from the CT scanner pending report 1500: Patient remains here in the emergency department with an altered mental status. The CT of the abdomen does not show any obstructive uropathy. And her head CT was negative for any focal findings. At this time we will presumptively admit her to the ICU given her recent hypotension for suspected urosepsis Given that repeat in and out catheterization does not fact show persistent urinary tract infection. Appropriate fluid resuscitation has been initiated. I have also spoken with Dr. Marimar Lewis who has agreed to see and admit patient Departure - Departure Disposition: 66 [facility] DC/Xfer Clinical Impression: Sepsis Qualifiers: Sepsis type: sepsis due to unspecified organism Sepsis acute organ dysfunction status: unspecified Qualified Code(s): A41.9 - Sepsis, unspecified organism UTI (urinary tract infection) Qualifiers: Urinary tract infection type: acute cystitis Hematuria presence: with hematuria Qualified Code(s): N30.01 - Acute cystitis with hematuria Dementia Qualifiers: Dementia type: unspecified type Dementia behavioral disturbance: without behavioral disturbance Qualified Code(s): F03.90 - Unspecified dementia without behavioral disturbance
[2020-07-09 11:54] LABS: ALBUMIN 3.4 g/dL (3.2-5.5); ALBUMIN/GLOBULIN RATIO 1.3 (1.0-2.2); BILIRUBIN,TOTAL 0.8 mg/dL (0.2-1.0); CALCIUM 8.7 mg/dL (8.5-10.3)
[2020-07-09 11:56] LABS: BASOPHILS % (AUTO) 0.3 %; EOSINOPHILS % (AUTO) 0.1 %; HGB - HEMOGLOBIN 13.2 g/dL (12.0-16.0); LYMPHOCYTES # (AUTO) 0.8 10^3/uL (1.5-3.5); LYMPHOCYTES % (AUTO) 10.9 %; MEAN CORPUSCULAR HGB CONC 33.2 g/dL (32.0-36.0); MEAN CORPUSCULAR VOLUME 96.6 fL (81.0-99.0); MEAN PLATELET VOLUME 11.4 fL (7.9-10.8); MONOCYTES % (AUTO) 13.5 %; NEUTROPHILS # (AUTO) 5.6 10^3/uL (1.5-6.6); NEUTROPHILS % (AUTO) 74.9 %; PLT - PLATELET COUNT 211 10^3/uL (130-450); RED BLOOD COUNT 4.12 10^6/uL (4.20-5.40); RED CELL DISTRIBUTION WIDTH 13.1 % (12.0-15.0); WHITE BLOOD COUNT 7.4 x10^3/uL (4.8-10.8)
[2020-07-09 12:15] LABS: BILIRUBIN,URINE NEGATIVE (NEGATIVE); GLUCOSE, URINE (UA) NEGATIVE (NEGATIVE); KETONES,URINE (UA) NEGATIVE (NEGATIVE); LEUKOCYTE ESTERASE, URINE SMALL (NEGATIVE); NITRITE,URINE NEGATIVE (NEGATIVE); OCCULT BLOOD,URINE MODERATE (NEGATIVE); PROTEIN,URINE 30 mg/dL (NEGATIVE); UROBILINOGEN,URINE 1 (NORMAL) E.U./dL (NORMAL)
[2020-07-09 12:26] LABS: BACTERIA,URINE Many /HPF (None Seen); CLARITY,URINE CLOUDY (CLEAR); SQUAMOUS EPITHELIAL CELL,UR MOD Squamous (<= Few)
--- NOTE | 2020-07-09 12:43 | CT Report ---
PROCEDURE: HEAD WO INDICATIONS: AMS; on xarelto TECHNIQUE: Noncontrast 4.5 mm thick angled axial sections acquired from the foramen magnum to the vertex. For r adiation dose reduction, the following was used: automated exposure control, adjustment of mA and/or kV according to patient size. COMPARISON: None. FINDINGS: Image quality: Excellent. CSF spaces: Age-comments. Global cerebral volume loss with passive extension of the ventricles and ex tra axial spaces. The ventricular system and basilar cisterns are patent. No abnormal extra axial flu id collection. Brain: No evidence of acute intracranial hemorrhage, cerebral edema, mass effect, or midline shift. C hronic macrovascular ischemic changes similar to the prior study. Remote left cerebellar infarct agai n noted. Skull and face: Calvarium and visualized facial bones are intact, without suspicious lesions. Sinuses: Visualized sinuses and mastoids are clear. IMPRESSION: No acute intracranial finding. Global volume loss and findings of chronic microvascular ischemic change, similar to the prior study Reviewed by: Shravan Martines MD on 07/09/2020 12:41 PM PDT Approved by: Shravan Martines MD on 07/09/2020 12:41 PM PDT Station ID: [id number]
--- NOTE | 2020-07-09 12:43 | XRAY Report ---
PROCEDURE: Chest 1 View X-Ray INDICATIONS: Fever TECHNIQUE: One view of the chest was acquired. COMPARISON: FINDINGS: Surgical changes and devices: None. Lungs and pleura: No pleural effusions or pneumothorax. Lungs are clear. Mediastinum: Mediastinal contours appear normal. Heart size is normal. Bones and chest wall: No suspicious bony lesions. Overlying soft tissues appear unremarkable. IMPRESSION: No acute cardiopulmonary process demonstrated radiographically. Reviewed by: Shravan Martines MD on 07/09/2020 12:42 PM PDT Approved by: Shravan Martines MD on 07/09/2020 12:42 PM PDT Station ID: [id number]
[2020-07-09] MEDS ORDERED: cefTRIAXone 1 GM VIAL IVP STA (12:51)
[2020-07-09] MEDS ORDERED: MEROPENEM 1 GM in SODIUM CHLORIDE 0.9% MINIBAG 100 ML IV STA (13:13)
[2020-07-09] MEDS ORDERED: IOVERSOL 320 100 ML VIAL IVP ONE ×2 (13:39→16:16)
[2020-07-09 13:50] LABS: BILIRUBIN,URINE NEGATIVE (NEGATIVE); GLUCOSE, URINE (UA) NEGATIVE (NEGATIVE); KETONES,URINE (UA) NEGATIVE (NEGATIVE); LEUKOCYTE ESTERASE, URINE MODERATE (NEGATIVE); NITRITE,URINE NEGATIVE (NEGATIVE); OCCULT BLOOD,URINE MODERATE (NEGATIVE); PROTEIN,URINE 30 mg/dL (NEGATIVE); UROBILINOGEN,URINE 1 (NORMAL) E.U./dL (NORMAL)
[2020-07-09 13:51] LABS: CLARITY,URINE CLOUDY (CLEAR)
[2020-07-09 14:02] LABS: BACTERIA,URINE Many /HPF (None Seen); RBC,URINE 0-5 /HPF (0-5); SQUAMOUS EPITHELIAL CELL,UR FEW Squamous (<= Few); WBC CLUMPS,URINE PRESENT
[2020-07-09] MEDS ORDERED: SODIUM CHLORIDE 0.9% 1,837.05 ML IV STA (14:29)
--- NOTE | 2020-07-09 14:48 | CT Report ---
PROCEDURE: Abdomen/Pelvis W INDICATIONS: fever of unknown origin? r/o obstruction CONTRAST: IV CONTRAST: Optiray 320 ml: 100 PO CONTRAST: *NO PO CONTRAST TECHNIQUE: After the administration of intravenous contrast, 5 mm thick sections acquired from the diaphragms to the symphysis. 5 mm thick coronal and sagittal reformats were acquired. For radiation dose reducti on, the following was used: automated exposure control, adjustment of mA and/or kV according to laura ent size. COMPARISON: None. FINDINGS: Image quality: Excellent. ABDOMEN: Lung bases: Lung bases are clear. Heart size is normal. Solid organs: Liver and spleen are normal in size and enhancement. Gallbladder is unremarkable Kristofer iary system is non dilated. Pancreas enhances normally. No adrenal nodules. Kidneys demonstrate no rmal size and enhancement, without hydronephrosis. Peritoneum and bowel: Bowel loops demonstrate normal wall thickness and caliber. No free fluid or a ir. Rectal fecal impaction. Nodes and vessels: No retroperitoneal or mesenteric adenopathy by size criteria. Aorta and inferior vena cava are normal in size. Miscellaneous: No ventral hernias. PELVIS: Genitourinary: Bladder wall thickness is normal. Miscellaneous: No inguinal hernias or adenopathy. There is an elliptical relatively vertical struct ure in the pelvis between the rectum and the bladder which is water density with a minimal enhancing rim. It most likely represents a uterus with a chronically obstructed cervical canal and accumulated fluid. It is not felt to be an abscess. It measures approximately 8.1 x 6.0 x 2.8 cm. No other struct ures are identified which are suspicious for abscess. Incidental note is made of a dilated refluxing left canal vein with left adnexal varicosities. Bones: No suspicious bony lesions. No vertebral body compression fractures. IMPRESSION: 1. An elliptical fluid-filled structure in the pelvis between the rectum and the bladder is felt to v venus likely represents the patient's uterus with chronic obstruction of the cervical canal. It is felt that an abscess is unlikely in this location. 2. No other findings suspicious for abscess. 3. Rectal fecal impaction. Reviewed by: Shaji Romero MD on 07/09/2020 2:46 PM PDT Approved by: Shaji Romero MD on 07/09/2020 2:46 PM PDT Station ID: [id number]
[2020-07-09] MEDS ORDERED: ONDANSETRON 4 MG/2 ML VIAL IVP PRN (15:00)
--- NOTE | 2020-07-09 15:04 | HISTORY & PHYSICAL EXAMINATION ---
Chief Complaint - Chief Complaint Chief Complaint: Fever and low blood pressure History of Present Illness - Admitted From Admitted From:: Home - History Obtained From Records Reviewed: Yes History obtained from: ER Physician, Daughter (Danielle), EMR Exam Limitations: Patient has dementia and is unable to provide a history - History of Present Illness HPI Comment/Other: This is a 84-year-old female with a past medical history significant for advanced dementia, history of DVT on Xarelto who presents today after her caregiver found her to have a fever of 101.3 F and low blood pressure. The patient has advanced dementia and is nonverbal and is unable to provide a history at this time. I was able to speak with her daughter who was able to provide a little more history. She states she was diagnosed with urinary tract infection about 2 weeks ago and was treated with antibiotics for 3 days. She states she believes that her mother is currently at her baseline neurologic status. She reports that she is not very verbal at baseline. She is concerned her caregivers do not take care of her and whenever she is under caregivers she become sick. She initially did not want her mother hospitalized as her mom does not do well when she is in the hospital. She has noted that her mother is shaking which is new. She tells me that her mother is on Xarelto for history of DVT. In the emergency department, her temperature was 38 C. Initial blood pressure was 108/94 but this decreased to 90 systolic. Her heart rate was in the 60s. She was not tachypneic and saturating well on room air. Her white count was normal. Her lactic acid was also normal. Her urinalysis revealed moderate leukocyte Estrace, greater than 25 WBCs, many bacteria. She was given meropenem IV in the emergency department. Given the above findings, medicine was consulted for admission. I discussed goals of care with the patient's daughter and she states the patient is a full code. History - Past Medical History Cardiovascular: reports: Hypertension, High cholesterol, Deep vein thrombosis Respiratory: reports: Other Neuro: reports: Dementia Endocrine/Autoimmune: reports: None GI: reports: None LOAN BROKER: reports: None : reports: None HEENT: reports: Glaucoma, Chronic hearing loss Psych: reports: Depression Musculoskeletal: reports: Osteoarthritis Derm: reports: None MRSA Hx?: No - Past Surgical History /LOAN BROKER: reports: section - Family & Social History Family History Comment/Other: Patient is unable to provide family history. Review of records reveals that her father had dementia. Living arrangement: At home Living Situation: With caregiver(s) Social History Notes: The patient lives at home alone but has caregivers. Patient is unable to provide further social history but review of records reveals that she is a non smoker and does not drink alcohol. - POLST Patient has POLST: No Meds/Allgy - Home Medications Home Medications: Ambulatory Orders Medication Instructions Recorded Confirmed Acetaminophen [Tylenol] 650 mg PO Q4HR PRN #0 tablet 02/15/17 07/09/20 Aspirin [Aspirin EC] 325 mg PO DAILY 02/15/17 02/15/17 Atorvastatin Calcium 40 mg PO QPM 02/15/17 07/09/20 LORazepam [Ativan] 0.5 mg PO Q8HR PRN 02/15/17 07/09/20 Memantine HCl [Namenda] 10 mg PO BID 02/15/17 07/09/20 Sertraline HCl [Zoloft] 100 mg PO DAILY 02/15/17 07/09/20 Rivaroxaban [Xarelto] 15 mg PO DAILY 07/09/20 07/09/20 bisacodyL [Dulcolax] 1 tab ORAL DAILY PRN 07/09/20 07/09/20 - Allergies Allergies/Adverse Reactions: Allergies Allergy/AdvReac Type Severity Reaction Status Date / Time No Known Drug Allergies Allergy Verified 07/09/20 11:20 Review of Systems - All Other Systems All Other Systems: reports: Other (Unable to obtain due to dementia.) Prior Level of Functionality: She has advanced dementia and is dependent for ADLs. She has caregivers. Exam - Vital Signs Reviewed Vital Signs: Yes Vital Signs: Vital Signs x48h Temp Pulse Resp BP Pulse Ox 07/09/20 14:57 36.3 C L 64 22 98/52 L 95 07/09/20 14:37 68 24 98/52 L 96 07/09/20 14:24 36.1 C L 67 14 91/54 L 94 07/09/20 13:19 96 88/61 L 96 07/09/20 13:00 67 124/107 H 97 07/09/20 12:30 66 22 93/47 L 95 07/09/20 12:08 65 18 124/107 H 94 07/09/20 11:31 38 C H 68 26 H 108/94 H 96 07/09/20 11:24 38 C H 68 14 108/94 H 96 07/09/20 11:20 38 C H 68 14 108/94 H 96 - Physical Exam General Appearance: positive: Alert, Other Eyes Bilateral: positive: Normal inspection, Conjunctivae nml ENT: positive: ENT inspection nml Neck: positive: Nml inspection Respiratory: positive: No respiratory distress. negative: Wheezes, Rales Cardiovascular: positive: Regular rate & rhythm, No murmur. negative: Tachycardia, Systolic murmur Abdomen: positive: Non-tender, No distention. negative: Tenderness, Guarding, Rebound Skin: positive: Warm, Dry Extremities: positive: Full ROM, No pedal edema Neurologic/Psychiatric: positive: Other (She has no focal deficits on exam. She is minimally verbal and does not follow commands.) Sepsis Event Note (H) - Evaluation Current Stage of Sepsis: Sepsis Possible source of Sepsis: positive: Genitourinary - Sepsis Criteria Sepsis Criteria: Recorded Temperature greater than 38.3C or Less than 36C, Recorded Respiratory Rate greater than 20, SBP drop more than 40mHg Conclusion/Plan - Problem List (1) Sepsis Conclusion/Plan: Concern is for sepsis given her fever and hypotension. Lactic acid and white co unt are normal. She received IV fluids in the emergency department as well as meropenem. Concern is that this is secondary to a urinary tract infection. We will continue her on meropenem IV and start her on vancomycin as well. Follow- up blood cultures. Trend CBC and monitor her fever curve. Qualifiers: Sepsis type: sepsis due to unspecified organism Sepsis acute organ dysfunction status: unspecified Qualified Code(s): A41.9 - Sepsis, unspecified organism (2) Urinary tract infection Conclusion/Plan: Suspect this is the cause of her sepsis. Her urinalysis suggestive of infection. Prior urine cultures are growing E. coli as well as Pseudomonas. We will continue her on meropenem IV and add vancomycin IV empirically given the concern for sepsis and to cover for enterococcus. We will follow-up urine culture and de-escalate antibiotics as appropriate. Qualifiers: Urinary tract infection type: acute cystitis Hematuria presence: with hematuria Qualified Code(s): N30.01 - Acute cystitis with hematuria (3) History of DVT (deep vein thrombosis) Conclusion/Plan: Stable. We will continue her home Xarelto. (4) Dementia Conclusion/Plan: Daughter reports she is at her baseline from a dementia standpoint. She is at risk for encephalopathy including sepsis and UTI. Delirium precautions. Qualifiers: Dementia type: unspecified type Dementia behavioral disturbance: without behavioral disturbance Qualified Code(s): F03.90 - Unspecified dementia without behavioral disturbance - Lab Results Lab results reviewed: Yes Fish Bones: 07/09/20 11:30 07/09/20 11:30 - Diagnostic Imaging Results Diagnostic Imaging Results: positive: Final report reviewed Core Measures - Anticipated LOS I expect patient to be DC'd or transferred within 96 hours.: Yes - Issues Hospital Issues and Management Plan: 84-year-old female with advanced dementia presents with fever and hypotension. Concern is for sepsis secondary to UTI. Will admit to ICU for IV antibiotics. - DVT/VTE - Prophylaxis VTE/DVT Device ordered at admit?: Yes Not Ordered - Medical Reason: Not indicated
--- NOTE | 2020-07-09 15:58 | PHARMACY PROGRESS NOTE ---
- Therapy Status Vancomycin regimen day #: 1 Therapy status: Awaiting steady state Basis for treatment: Empirical - ALAINA Risk Risk level for Acute Kidney Injury: Moderate Acute Kidney Injury risk factors: Baseline CrCl <50, Goal trough >15, Admission to ICU, Sepsis - Monitoring and Recommendation Clinical response to treatment: I&O Previous 24 hours 07/07/20 07/08/20 07/09/20 23:59 23:59 23:59 Intake Total 100 Balance 100 Lab Results 07/09/20 11:30 BUN 14 Creatinine 1.0 Estimated GFR (MDRD) 53 L Monitoring plan: Daily serum creatinine (VANCOMYCIN INITIATED - SEPSIS SCR: 1.0MG/DL; CRCL; ~33 (IBW)ML/MIN (07/09) 1250MG X1 LOADING DOSE MAINTENANCE DOSE: 1G Q24H T1/2 = 24H "TROUGH" 07/11 @ 1400 (MORE PREDICTOR FOR TRUE TROUGH) MRSA PENDING), Draw trough early
[2020-07-09] MEDS ORDERED: VANCOMYCIN INJ 1.25 GM in SODIUM CHLORIDE 0.9% 250 ML IV SCH (16:00)
[2020-07-09] MEDS: LACTATED RINGERS 1,000 ML IV SCH (17:17)
[2020-07-09] MEDS: SODIUM CHLORIDE FLUSH 0.9% 10 ML SYRINGE IVP SCH (17:17)
[2020-07-09] MEDS: ATORVASTATIN 40 MG TABLET PO SCH (20:57)
[2020-07-09] MEDS: MEMANTINE 5 MG TABLET PO SCH (20:57)
[2020-07-09] MEDS: MEROPENEM 1 GM in SODIUM CHLORIDE 0.9% MINIBAG 100 ML IV SCH (21:08)
[2020-07-09] MEDS: ACETAMINOPHEN 325 MG TABLET PO PRN (23:29)
[2020-07-10] MEDS: LACTATED RINGERS 1,000 ML IV SCH ×3 (02:01→16:50)
[2020-07-10] MEDS: SODIUM CHLORIDE FLUSH 0.9% 10 ML SYRINGE IVP SCH ×3 (02:01→16:52)
[2020-07-10 06:09] LABS: VBG PH 7.301 (7.31-7.41)
[2020-07-10 06:12] LABS: BASOPHILS % (AUTO) 0.4 %; EOSINOPHILS % (AUTO) 0.6 %; HGB - HEMOGLOBIN 13.2 g/dL (12.0-16.0); LYMPHOCYTES # (AUTO) 0.9 10^3/uL (1.5-3.5); LYMPHOCYTES % (AUTO) 12.5 %; MEAN CORPUSCULAR HGB CONC 32.4 g/dL (32.0-36.0); MEAN PLATELET VOLUME 11.1 fL (7.9-10.8); MONOCYTES % (AUTO) 13.6 %; NEUTROPHILS # (AUTO) 5.1 10^3/uL (1.5-6.6); NEUTROPHILS % (AUTO) 72.5 %; PLT - PLATELET COUNT 170 10^3/uL (130-450); RED BLOOD COUNT 4.12 10^6/uL (4.20-5.40); RED CELL DISTRIBUTION WIDTH 13.2 % (12.0-15.0); WHITE BLOOD COUNT 7.1 x10^3/uL (4.8-10.8)
[2020-07-10 06:21] LABS: CALCIUM 8.6 mg/dL (8.5-10.3); MAGNESIUM 1.9 mg/dL (1.7-2.8); PHOSPHORUS 3.1 mg/dL (2.5-4.6)
[2020-07-10] MEDS ORDERED: LACTATED RINGERS 1,000 ML IV ONE ×2 (07:34→12:18)
--- NOTE | 2020-07-10 09:19 | PROVIDER PROGRESS NOTE ---
Subjective - Prog Note Date Prog Note Date: 07/10/20 - Subjective Subjective: She was comfortable in bed this morning but would not open her eyes or follow commands. Her daughter reports she normally sleeps until 10 AM each day. I checked on her again in the afternoon she was more alert was able to eat lunch. Her eyes are open and she was able to mumble a few words as well as left. Patient's daughter reports this is how her mother usually is. Current Medications - Current Medications Current Medications: Active Medications Acetaminophen (Tylenol) 650 mg PO Q4HR PRN PRN Reason: Pain 1 to 4 Last Admin: 07/09/20 23:29 Dose: 650 mg Documented by: Atorvastatin Calcium (Lipitor) 40 mg PO QPM [facility] Last Admin: 07/09/20 20:57 Dose: 40 mg Documented by: Lactated Ringer's (Lr) 1,000 mls @ 100 mls/hr IV .Q10H [facility] Last Infusion: 07/10/20 14:30 Dose: 100 mls/hr Documented by: Meropenem 1 gm/ Sodium (Chloride) 100 mls @ 200 mls/hr IV Q12H [facility] Last Infusion: 07/10/20 10:30 Dose: Infused Documented by: Norepinephrine Bitartrate 8 mg (/ Dextrose) 250 mls @ 0 mls/hr IV .Q0M [facility]; Protocol Memantine (Namenda) 10 mg PO BID [facility] Last Admin: 07/10/20 10:30 Dose: 10 mg Documented by: Ondansetron HCl (Zofran Inj) 4 mg IVP Q6HR PRN PRN Reason: Nausea / Vomiting Rivaroxaban (Xarelto) 15 mg PO DAILY [facility] Last Admin: 07/10/20 10:30 Dose: 15 mg Documented by: Sertraline HCl (Zoloft) 100 mg PO DAILY [facility] Last Admin: 07/10/20 10:30 Dose: 100 mg Documented by: Sodium Chloride (Normal Saline Flush 0.9%) 10 ml IVP 0100,0900,1700 [facility] Last Admin: 07/10/20 08:28 Dose: 10 ml Documented by: Sodium Chloride (Normal Saline Flush 0.9%) 10 ml IVP PRN PRN PRN Reason: NEEDED PER PROVIDER ORDERS Aspirin [Aspirin EC] 325 mg PO DAILY 02/15/17 Atorvastatin Calcium 40 mg PO QPM 02/15/17 LORazepam [Ativan] 0.5 mg PO Q8HR PRN 02/15/17 Memantine HCl [Namenda] 10 mg PO BID 02/15/17 Sertraline HCl [Zoloft] 100 mg PO DAILY 02/15/17 Rivaroxaban [Xarelto] 15 mg PO DAILY 07/09/20 bisacodyL [Dulcolax] 1 tab ORAL DAILY PRN 07/09/20 Objective - Vital Signs/Intake & Output Reviewed Vital Signs: Yes Vital Signs: Vital Signs Temp Pulse Resp BP Pulse Ox 07/10/20 09:00 51 L 18 86/60 L 93 07/10/20 08:00 98.4 C H 50 L 20 91/64 92 07/10/20 07:00 52 L 20 87/43 L 93 07/10/20 06:17 56 L 24 102/45 L 94 Intake & Output: Intake & Output 07/07/20 07/08/20 07/09/20 07/10/20 23:59 23:59 23:59 23:59 Intake Total 3087.051 1016.667 Output Total 250 Balance 3087.051 766.667 - Objective General Appearance: positive: No acute distress, Other (She appears comfortable in bed and open her eyes at times but will predominately keep in close. Will mumble a few words here and there.) Eyes Bilateral: positive: Normal inspection, Conjunctivae nml ENT: positive: ENT inspection nml Neck: positive: Nml inspection Respiratory: positive: No respiratory distress. negative: Wheezes, Rales Cardiovascular: positive: Bradycardia. negative: Regular rate & rhythm, Tachycardia, Systolic murmur Abdomen: positive: Non-tender, No distention. negative: Tenderness Skin: positive: Warm, Dry Neurologic/Psychiatric: positive: Other (She does not follow commands. Will mumble words at times and spoken to. No obvious focal deficits on exam as she is moving all four extremities.) - Lab Results Fish Bones: 07/10/20 05:55 07/10/20 05:55 Other Labs: Lab Results x24hrs 07/10/20 07/10/20 07/10/20 Range/Units 05:55 05:55 05:55 WBC 7.1 (4.8-10.8) x10^3/uL RBC 4.12 L (4.20-5.40) 10^6/uL Hgb 13.2 (12.0-16.0) g/dL Hct 40.8 (37.0-47.0) % MCV 99.0 (81.0-99.0) fL MCH 32.0 H (27.0-31.0) pg MCHC 32.4 (32.0-36.0) g/dL RDW 13.2 (12.0-15.0) % Plt Count 170 (130-450) 10^3/uL MPV 11.1 H (7.9-10.8) fL Neut # (Auto) 5.1 (1.5-6.6) 10^3/uL Lymph # (Auto) 0.9 L (1.5-3.5) 10^3/uL Motley # (Auto) 1.0 (0.0-1.0) 10^3/uL Eos # (Auto) 0.0 (0.0-0.7) 10^3/uL Baso # (Auto) 0.0 (0.0-0.1) 10^3/uL Absolute Nucleated RBC 0.00 x10^3/uL Nucleated RBC % 0.0 /100WBC VBG pH 7.301 L (7.31-7.41) Ionized Calcium 1.20 (1.15-1.33) mmol/L Sodium 139 (135-145) mmol/L Potassium 4.1 (3.5-5.0) mmol/L Chloride 107 (101-111) mmol/L Carbon Dioxide 27 (21-32) mmol/L Anion Gap 5.0 L (6-13) BUN 12 (6-20) mg/dL Creatinine 1.0 (0.4-1.0) mg/dL Estimated GFR (MDRD) 53 L (>89) Glucose 103 H (70-100) mg/dL POC Whole Bld Glucose (70 - 100) mg/dL Lactic Acid (0.5-2.2) mmol/L Calcium 8.6 (8.5-10.3) mg/dL Phosphorus 3.1 (2.5-4.6) mg/dL Magnesium 1.9 (1.7-2.8) mg/dL Total Bilirubin (0.2-1.0) mg/dL AST (10-42) IU/L ALT (10-60) IU/L Alkaline Phosphatase (42-121) IU/L Troponin I High Sens (2.3-14.8) ng/L Total Protein (6.7-8.2) g/dL Albumin (3.2-5.5) g/dL Globulin (2.1-4.2) g/dL Albumin/Globulin Ratio (1.0-2.2) Urine Color Urine Clarity (CLEAR) Urine pH (5.0-7.5) PH Ur Specific Brumley (1.002-1.030) Urine Protein (NEGATIVE) mg/dL Urine Glucose (UA) (NEGATIVE) mg/dL Urine Ketones (NEGATIVE) mg/dL Urine Occult Blood (NEGATIVE) Urine Nitrite (NEGATIVE) Urine Bilirubin (NEGATIVE) Urine Urobilinogen (NORMAL) E.U./dL Ur Leukocyte Esterase (NEGATIVE) Urine RBC (0-5) /HPF Urine WBC (0-5) /HPF Urine WBC Clumps Ur Squamous Epith Cells (<= Few) Urine Bacteria (None Seen) /HPF Ur Microscopic Review Urine Culture Comments Nasal Screen MRSA (PCR) (NEGATIVE) 07/09/20 07/09/20 07/09/20 Range/Units 20:51 17:57 16:49 WBC (4.8-10.8) x10^3/uL RBC (4.20-5.40) 10^6/uL Hgb (12.0-16.0) g/dL Hct (37.0-47.0) % MCV (81.0-99.0) fL MCH (27.0-31.0) pg MCHC (32.0-36.0) g/dL RDW (12.0-15.0) % Plt Count (130-450) 10^3/uL MPV (7.9-10.8) fL Neut # (Auto) (1.5-6.6) 10^3/uL Lymph # (Auto) (1.5-3.5) 10^3/uL Motley # (Auto) (0.0-1.0) 10^3/uL Eos # (Auto) (0.0-0.7) 10^3/uL Baso # (Auto) (0.0-0.1) 10^3/uL Absolute Nucleated RBC x10^3/uL Nucleated RBC % /100WBC VBG pH (7.31-7.41) Ionized Calcium (1.15-1.33) mmol/L Sodium (135-145) mmol/L Potassium (3.5-5.0) mmol/L Chloride (101-111) mmol/L Carbon Dioxide (21-32) mmol/L Anion Gap (6-13) BUN (6-20) mg/dL Creatinine (0.4-1.0) mg/dL Estimated GFR (MDRD) (>89) Glucose (70-100) mg/dL POC Whole Bld Glucose 119 H 104 H 69 L (70 - 100) mg/dL Lactic Acid (0.5-2.2) mmol/L Calcium (8.5-10.3) mg/dL Phosphorus (2.5-4.6) mg/dL Magnesium (1.7-2.8) mg/dL Total Bilirubin (0.2-1.0) mg/dL AST (10-42) IU/L ALT (10-60) IU/L Alkaline Phosphatase (42-121) IU/L Troponin I High Sens (2.3-14.8) ng/L Total Protein (6.7-8.2) g/dL Albumin (3.2-5.5) g/dL Globulin (2.1-4.2) g/dL Albumin/Globulin Ratio (1.0-2.2) Urine Color Urine Clarity (CLEAR) Urine pH (5.0-7.5) PH Ur Specific Brumley (1.002-1.030) Urine Protein (NEGATIVE) mg/dL Urine Glucose (UA) (NEGATIVE) mg/dL Urine Ketones (NEGATIVE) mg/dL Urine Occult Blood (NEGATIVE) Urine Nitrite (NEGATIVE) Urine Bilirubin (NEGATIVE) Urine Urobilinogen (NORMAL) E.U./dL Ur Leukocyte Esterase (NEGATIVE) Urine RBC (0-5) /HPF Urine WBC (0-5) /HPF Urine WBC Clumps Ur Squamous Epith Cells (<= Few) Urine Bacteria (None Seen) /HPF Ur Microscopic Review Urine Culture Comments Nasal Screen MRSA (PCR) (NEGATIVE) 07/09/20 07/09/20 07/09/20 Range/Units 16:05 15:28 14:47 WBC (4.8-10.8) x10^3/uL RBC (4.20-5.40) 10^6/uL Hgb (12.0-16.0) g/dL Hct (37.0-47.0) % MCV (81.0-99.0) fL MCH (27.0-31.0) pg MCHC (32.0-36.0) g/dL RDW (12.0-15.0) % Plt Count (130-450) 10^3/uL MPV (7.9-10.8) fL Neut # (Auto) (1.5-6.6) 10^3/uL Lymph # (Auto) (1.5-3.5) 10^3/uL Motley # (Auto) (0.0-1.0) 10^3/uL Eos # (Auto) (0.0-0.7) 10^3/uL Baso # (Auto) (0.0-0.1) 10^3/uL Absolute Nucleated RBC x10^3/uL Nucleated RBC % /100WBC VBG pH (7.31-7.41) Ionized Calcium (1.15-1.33) mmol/L Sodium (135-145) mmol/L Potassium (3.5-5.0) mmol/L Chloride (101-111) mmol/L Carbon Dioxide (21-32) mmol/L Anion Gap (6-13) BUN (6-20) mg/dL Creatinine (0.4-1.0) mg/dL Estimated GFR (MDRD) (>89) Glucose (70-100) mg/dL POC Whole Bld Glucose (70 - 100) mg/dL Lactic Acid 1.0 (0.5-2.2) mmol/L Calcium (8.5-10.3) mg/dL Phosphorus (2.5-4.6) mg/dL Magnesium (1.7-2.8) mg/dL Total Bilirubin (0.2-1.0) mg/dL AST (10-42) IU/L ALT (10-60) IU/L Alkaline Phosphatase (42-121) IU/L Troponin I High Sens 5.8 (2.3-14.8) ng/L Total Protein (6.7-8.2) g/dL Albumin (3.2-5.5) g/dL Globulin (2.1-4.2) g/dL Albumin/Globulin Ratio (1.0-2.2) Urine Color Urine Clarity (CLEAR) Urine pH (5.0-7.5) PH Ur Specific Brumley (1.002-1.030) Urine Protein (NEGATIVE) mg/dL Urine Glucose (UA) (NEGATIVE) mg/dL Urine Ketones (NEGATIVE) mg/dL Urine Occult Blood (NEGATIVE) Urine Nitrite (NEGATIVE) Urine Bilirubin (NEGATIVE) Urine Urobilinogen (NORMAL) E.U./dL Ur Leukocyte Esterase (NEGATIVE) Urine RBC (0-5) /HPF Urine WBC (0-5) /HPF Urine WBC Clumps Ur Squamous Epith Cells (<= Few) Urine Bacteria (None Seen) /HPF Ur Microscopic Review Urine Culture Comments Nasal Screen MRSA (PCR) NEGATIVE (NEGATIVE) 07/09/20 07/09/20 07/09/20 Range/Units 13:45 12:05 11:30 WBC (4.8-10.8) x10^3/uL RBC (4.20-5.40) 10^6/uL Hgb (12.0-16.0) g/dL Hct (37.0-47.0) % MCV (81.0-99.0) fL MCH (27.0-31.0) pg MCHC (32.0-36.0) g/dL RDW (12.0-15.0) % Plt Count (130-450) 10^3/uL MPV (7.9-10.8) fL Neut # (Auto) (1.5-6.6) 10^3/uL Lymph # (Auto) (1.5-3.5) 10^3/uL Motley # (Auto) (0.0-1.0) 10^3/uL Eos # (Auto) (0.0-0.7) 10^3/uL Baso # (Auto) (0.0-0.1) 10^3/uL Absolute Nucleated RBC x10^3/uL Nucleated RBC % /100WBC VBG pH (7.31-7.41) Ionized Calcium (1.15-1.33) mmol/L Sodium (135-145) mmol/L Potassium (3.5-5.0) mmol/L Chloride (101-111) mmol/L Carbon Dioxide (21-32) mmol/L Anion Gap (6-13) BUN (6-20) mg/dL Creatinine (0.4-1.0) mg/dL Estimated GFR (MDRD) (>89) Glucose (70-100) mg/dL POC Whole Bld Glucose (70 - 100) mg/dL Lactic Acid 0.9 (0.5-2.2) mmol/L Calcium (8.5-10.3) mg/dL Phosphorus (2.5-4.6) mg/dL Magnesium (1.7-2.8) mg/dL Total Bilirubin (0.2-1.0) mg/dL AST (10-42) IU/L ALT (10-60) IU/L Alkaline Phosphatase (42-121) IU/L Troponin I High Sens (2.3-14.8) ng/L Total Protein (6.7-8.2) g/dL Albumin (3.2-5.5) g/dL Globulin (2.1-4.2) g/dL Albumin/Globulin Ratio (1.0-2.2) Urine Color YELLOW YELLOW Urine Clarity CLOUDY CLOUDY (CLEAR) Urine pH 7.0 7.0 (5.0-7.5) PH Ur Specific Brumley 1.020 1.020 (1.002-1.030) Urine Protein 30 H 30 H (NEGATIVE) mg/dL Urine Glucose (UA) NEGATIVE NEGATIVE (NEGATIVE) mg/dL Urine Ketones NEGATIVE NEGATIVE (NEGATIVE) mg/dL Urine Occult Blood MODERATE H MODERATE H (NEGATIVE) Urine Nitrite NEGATIVE NEGATIVE (NEGATIVE) Urine Bilirubin NEGATIVE NEGATIVE (NEGATIVE) Urine Urobilinogen 1 (NORMAL) 1 (NORMAL) (NORMAL) E.U./dL Ur Leukocyte Esterase MODERATE H SMALL H (NEGATIVE) Urine RBC 0-5 6-10 H (0-5) /HPF Urine WBC >25 H >25 H (0-5) /HPF Urine WBC Clumps PRESENT Ur Squamous Epith Cells FEW Squamous MOD Squamous H (<= Few) Urine Bacteria Many H Many H (None Seen) /HPF Ur Microscopic Review INDICATED Urine Culture Comments INDICATED NOT INDICATED Nasal Screen MRSA (PCR) (NEGATIVE) 07/09/20 07/09/20 Range/Units 11:30 11:30 WBC 7.4 (4.8-10.8) x10^3/uL RBC 4.12 L (4.20-5.40) 10^6/uL Hgb 13.2 (12.0-16.0) g/dL Hct 39.8 (37.0-47.0) % MCV 96.6 (81.0-99.0) fL MCH 32.0 H (27.0-31.0) pg MCHC 33.2 (32.0-36.0) g/dL RDW 13.1 (12.0-15.0) % Plt Count 211 (130-450) 10^3/uL MPV 11.4 H (7.9-10.8) fL Neut # (Auto) 5.6 (1.5-6.6) 10^3/uL Lymph # (Auto) 0.8 L (1.5-3.5) 10^3/uL Motley # (Auto) 1.0 (0.0-1.0) 10^3/uL Eos # (Auto) 0.0 (0.0-0.7) 10^3/uL Baso # (Auto) 0.0 (0.0-0.1) 10^3/uL Absolute Nucleated RBC 0.00 x10^3/uL Nucleated RBC % 0.0 /100WBC VBG pH (7.31-7.41) Ionized Calcium (1.15-1.33) mmol/L Sodium 135 (135-145) mmol/L Potassium 4.0 (3.5-5.0) mmol/L Chloride 100 L (101-111) mmol/L Carbon Dioxide 29 (21-32) mmol/L Anion Gap 6.0 (6-13) BUN 14 (6-20) mg/dL Creatinine 1.0 (0.4-1.0) mg/dL Estimated GFR (MDRD) 53 L (>89) Glucose 102 H (70-100) mg/dL POC Whole Bld Glucose (70 - 100) mg/dL Lactic Acid (0.5-2.2) mmol/L Calcium 8.7 (8.5-10.3) mg/dL Phosphorus (2.5-4.6) mg/dL Magnesium (1.7-2.8) mg/dL Total Bilirubin 0.8 (0.2-1.0) mg/dL AST 21 (10-42) IU/L ALT 20 (10-60) IU/L Alkaline Phosphatase 54 (42-121) IU/L Troponin I High Sens (2.3-14.8) ng/L Total Protein 6.0 L (6.7-8.2) g/dL Albumin 3.4 (3.2-5.5) g/dL Globulin 2.6 (2.1-4.2) g/dL Albumin/Globulin Ratio 1.3 (1.0-2.2) Urine Color Urine Clarity (CLEAR) Urine pH (5.0-7.5) PH Ur Specific Brumley (1.002-1.030) Urine Protein (NEGATIVE) mg/dL Urine Glucose (UA) (NEGATIVE) mg/dL Urine Ketones (NEGATIVE) mg/dL Urine Occult Blood (NEGATIVE) Urine Nitrite (NEGATIVE) Urine Bilirubin (NEGATIVE) Urine Urobilinogen (NORMAL) E.U./dL Ur Leukocyte Esterase (NEGATIVE) Urine RBC (0-5) /HPF Urine WBC (0-5) /HPF Urine WBC Clumps Ur Squamous Epith Cells (<= Few) Urine Bacteria (None Seen) /HPF Ur Microscopic Review Urine Culture Comments Nasal Screen MRSA (PCR) (NEGATIVE) Sepsis Event Note (H) - Evaluation Current Stage of Sepsis: Septic shock Possible source of Sepsis: positive: Genitourinary - Sepsis Criteria Sepsis Criteria: Recorded Temperature greater than 38.3C or Less than 36C, Recorded Respiratory Rate greater than 20, SBP drop more than 40mHg, SBP less than 90 mmHg Assessment/Plan - Problem List (1) Septic shock Impression: This is believed to be secondary to urinary tract infection. She is hypotensive today and will require pressors. I spoke with anesthesia and they will be plac ing a central line today. Urine cultures are growing E. coli and so we will discontinue the vancomycin and keep her on the meropenem. She is not tachycardic and does not have a white count. We will keep an IV antibiotics today being day 2. We will repeat a lactic acid. Continue to trend her white count. Follow-up blood cultures which have been negative to date. (2) Urinary tract infection Impression: This is presumed to be the source of her sepsis. Urine cultures growing E. coli. She is hypotensive and remains febrile. Blood cultures have been negative to date. CT of the abdomen pelvis on admission did not reveal any obstructing stone or any other obvious source of infection. We will discontinue vancomycin and continue meropenem IV with today being day 2. We will follow-up urine cultures and de-escalate as appropriate. Qualifiers: Urinary tract infection type: acute cystitis Hematuria presence: with hematuria Qualified Code(s): N30.01 - Acute cystitis with hematuria (3) History of DVT (deep vein thrombosis) Impression: We are continuing her Xarelto during this hospitalization. (4) Dementia Impression: She appears to be at her baseline neurologic standpoint. We will continue with delirium precautions. Qualifiers: Dementia type: unspecified type Dementia behavioral disturbance: without behavioral disturbance Qualified Code(s): F03.90 - Unspecified dementia without behavioral disturbance
[2020-07-10] MEDS: MEROPENEM 1 GM in SODIUM CHLORIDE 0.9% MINIBAG 100 ML IV SCH ×2 (10:00→22:21)
[2020-07-10] MEDS: MEMANTINE 5 MG TABLET PO SCH ×2 (10:30→21:17)
[2020-07-10] MEDS: SERTRALINE 50 MG TABLET PO SCH (10:30)
[2020-07-10] MEDS: RIVAROXABAN 15 MG TABLET PO SCH (10:30)
--- NOTE | 2020-07-10 13:54 | XRAY Report ---
PROCEDURE: Chest for Line Placement INDICATIONS: Central Line Placement TECHNIQUE: One view of the chest was acquired. COMPARISON: 07/09/2020 FINDINGS: Surgical changes and devices: Central venous catheter projects in the SVC via a right IJ approach. Lungs and pleura: Trace bilateral pleural fluid collections. Cephalization of pulmonary vascular and perihilar opacities concerning for CHF. Mediastinum: Mediastinal contours appear normal. Heart at the upper limits of normal for size. Bones and chest wall: No suspicious bony lesions. Overlying soft tissues appear unremarkable. IMPRESSION: 1. The central venous catheter placed the mid SVC. 2. Trace bilateral pleural effusions. 3. Possible CHF/fluid overload. Reviewed by: Lesa Peters MD, PhD on 07/10/2020 1:47 PM PDT Approved by: Lesa Peters MD, PhD on 07/10/2020 1:47 PM PDT Station ID: [id number]
--- NOTE | 2020-07-10 13:57 | ANESTHESIA PROCEDURE NOTE ---
Anesth Central Line Template - Central Line Central Line Preparation: Consent Obtained, Time out completed, Ultrasound used, Sterile prep and drape Central line location: Right IJ Central line type: Triple lumen Central line catheter tip site resides: Superior vena cava (SVC) Central line aftercare: Chlorhexidine disc placed, Secured, Placement confirmed, No complications, Bundle checklist complete, Pt tolerated well Other Info/Details: Called to place central line for low blood pressure and sepsis. Consent was obtained from patient's daughter due to severe dementia. Patient was placed in trendellenberg position and right neck was prepped with chlorohexadine. Timeout completed. Full body sterile drape, gown, gloves and mask were utilized. The right IJ was identified under ultrasound and skin was localized with 3ml of 1% lidocaine. A 20 G needle was used to access the vein and wire was advanced with ease. A 20cm triple lumen was inserted over the wire and wire was removed. All ports aspirate blood and flush with ease. Line was sutured in place at 17cm. Chest xray showed the tip to be at the cavoatrial junction. Biopatch and opsite applied. Patient tolerated well.
[2020-07-10] MEDS ORDERED: VANCOMYCIN INJ 1 GM in SODIUM CHLORIDE 0.9% 250 ML IV SCH (15:00)
[2020-07-10] MEDS: ACETAMINOPHEN 325 MG TABLET PO PRN ×2 (16:33→20:11)
[2020-07-10] MEDS: ATORVASTATIN 40 MG TABLET PO SCH (21:17)
[2020-07-11] MEDS: LACTATED RINGERS 1,000 ML IV SCH ×3 (02:42→22:46)
[2020-07-11] MEDS: SODIUM CHLORIDE FLUSH 0.9% 10 ML SYRINGE IVP SCH ×2 (02:43→10:04)
[2020-07-11 05:14] LABS: BASOPHILS % (AUTO) 0.4 %; EOSINOPHILS # (AUTO) 0.1 10^3/uL (0.0-0.7); EOSINOPHILS % (AUTO) 0.9 %; HGB - HEMOGLOBIN 12.9 g/dL (12.0-16.0); LYMPHOCYTES # (AUTO) 1.2 10^3/uL (1.5-3.5); LYMPHOCYTES % (AUTO) 15.1 %; MEAN CORPUSCULAR HEMOGLOBIN 31.3 pg (27.0-31.0); MEAN CORPUSCULAR HGB CONC 32.5 g/dL (32.0-36.0); MEAN CORPUSCULAR VOLUME 96.4 fL (81.0-99.0); MEAN PLATELET VOLUME 12.1 fL (7.9-10.8); MONOCYTES # (AUTO) 1.2 10^3/uL (0.0-1.0); MONOCYTES % (AUTO) 15.3 %; NEUTROPHILS # (AUTO) 5.4 10^3/uL (1.5-6.6); NEUTROPHILS % (AUTO) 67.9 %; PLT - PLATELET COUNT 198 10^3/uL (130-450); RED BLOOD COUNT 4.12 10^6/uL (4.20-5.40)
[2020-07-11 05:25] LABS: VBG PH 7.382 (7.31-7.41)
[2020-07-11 05:34] LABS: CALCIUM 8.3 mg/dL (8.5-10.3); MAGNESIUM 1.8 mg/dL (1.7-2.8); PHOSPHORUS 2.9 mg/dL (2.5-4.6)
--- NOTE | 2020-07-11 08:12 | PROVIDER PROGRESS NOTE ---
Subjective - Prog Note Date Prog Note Date: 07/11/20 - Subjective Subjective: Started on norepinephrine yesterday and remains on this. She was febrile yesterday evening temperature of 38.8 C. This morning, she appears comfortable in bed. Daughter is present at bedside. She feels that her mother is improving. Current Medications - Current Medications Current Medications: Active Medications Acetaminophen (Tylenol) 650 mg PO Q4HR PRN PRN Reason: Pain 1 to 4 Last Admin: 07/10/20 20:11 Dose: 650 mg Documented by: Atorvastatin Calcium (Lipitor) 40 mg PO QPM [facility] Last Admin: 07/10/20 21:17 Dose: 40 mg Documented by: Docusate Sodium (Colace 250mg Capsule) 250 - 500 mg PO DAILY [facility] Lactated Ringer's (Lr) 1,000 mls @ 100 mls/hr IV .Q10H [facility] Last Infusion: 07/11/20 08:00 Dose: 100 mls/hr Documented by: Meropenem 1 gm/ Sodium (Chloride) 100 mls @ 200 mls/hr IV Q12H [facility] Last Infusion: 07/10/20 22:50 Dose: Infused Documented by: Norepinephrine Bitartrate 8 mg (/ Dextrose) 250 mls @ 0 mls/hr IV .Q0M [facility]; Protocol Last Titration: 07/11/20 08:25 Dose: 3 mcg/min, 5.625 mls/hr Documented by: Memantine (Namenda) 10 mg PO BID [facility] Last Admin: 07/10/20 21:17 Dose: 10 mg Documented by: Ondansetron HCl (Zofran Inj) 4 mg IVP Q6HR PRN PRN Reason: Nausea / Vomiting Rivaroxaban (Xarelto) 15 mg PO DAILY [facility] Last Admin: 07/10/20 10:30 Dose: 15 mg Documented by: Sertraline HCl (Zoloft) 100 mg PO DAILY [facility] Last Admin: 07/10/20 10:30 Dose: 100 mg Documented by: Sodium Chloride (Normal Saline Flush 0.9%) 10 ml IVP 0100,0900,1700 [facility] Last Admin: 07/11/20 02:43 Dose: 10 ml Documented by: Sodium Chloride (Normal Saline Flush 0.9%) 10 ml IVP PRN PRN PRN Reason: NEEDED PER PROVIDER ORDERS Aspirin [Aspirin EC] 325 mg PO DAILY 02/15/17 Atorvastatin Calcium 40 mg PO QPM 02/15/17 LORazepam [Ativan] 0.5 mg PO Q8HR PRN 02/15/17 Memantine HCl [Namenda] 10 mg PO BID 02/15/17 Sertraline HCl [Zoloft] 100 mg PO DAILY 02/15/17 Rivaroxaban [Xarelto] 15 mg PO DAILY 07/09/20 bisacodyL [Dulcolax] 1 tab ORAL DAILY PRN 07/09/20 Objective - Vital Signs/Intake & Output Reviewed Vital Signs: Yes Vital Signs: Vital Signs Temp Pulse Resp BP Pulse Ox 07/11/20 08:00 37.2 C 56 L 20 112/81 H 93 07/11/20 06:58 55 L 21 92 07/11/20 06:00 54 L 17 113/54 L 92 07/11/20 05:00 58 L 19 135/53 H 92 Intake & Output: Intake & Output 07/08/20 07/09/20 07/10/20 07/11/20 23:59 23:59 23:59 23:59 Intake Total 3087.051 4114.417 1300 Output Total 1300 1000 Balance 3087.051 2814.417 300 - Objective General Appearance: positive: No acute distress, Other (She appears comfortable in bed this morning.) Eyes Bilateral: positive: Normal inspection ENT: positive: ENT inspection nml Neck: positive: Nml inspection Respiratory: positive: No respiratory distress Cardiovascular: positive: Regular rate & rhythm. negative: Tachycardia Skin: positive: Warm, Dry Extremities: positive: Pedal edema (Trace in bilateral lower extremities) - Lab Results Fish Bones: 07/12/20 04:45 07/12/20 04:45 Other Labs: Lab Results x24hrs 07/11/20 07/11/20 07/11/20 Range/Units 04:20 04:20 04:20 WBC (4.8-10.8) x10^3/uL RBC (4.20-5.40) 10^6/uL Hgb (12.0-16.0) g/dL Hct (37.0-47.0) % MCV (81.0-99.0) fL MCH (27.0-31.0) pg MCHC (32.0-36.0) g/dL RDW (12.0-15.0) % Plt Count (130-450) 10^3/uL MPV (7.9-10.8) fL Neut # (Auto) (1.5-6.6) 10^3/uL Lymph # (Auto) (1.5-3.5) 10^3/uL [place] # (Auto) (0.0-1.0) 10^3/uL Eos # (Auto) (0.0-0.7) 10^3/uL Baso # (Auto) (0.0-0.1) 10^3/uL Absolute Nucleated RBC x10^3/uL Nucleated RBC % /100WBC VBG pH 7.382 (7.31-7.41) Ionized Calcium 1.16 (1.15-1.33) mmol/L Sodium 140 (135-145) mmol/L Potassium 3.6 (3.5-5.0) mmol/L Chloride 108 (101-111) mmol/L Carbon Dioxide 26 (21-32) mmol/L Anion Gap 6.0 (6-13) BUN 17 (6-20) mg/dL Creatinine 1.0 (0.4-1.0) mg/dL Estimated GFR (MDRD) 53 L (>89) Glucose 154 H (70-100) mg/dL POC Whole Bld Glucose (70 - 100) mg/dL Calcium 8.3 L (8.5-10.3) mg/dL Phosphorus 2.9 (2.5-4.6) mg/dL Magnesium 1.8 (1.7-2.8) mg/dL TSH 2.95 (0.34-5.60) uIU/mL 07/11/20 07/10/20 07/10/20 Range/Units 04:20 20:24 16:45 WBC 8.0 (4.8-10.8) x10^3/uL RBC 4.12 L (4.20-5.40) 10^6/uL Hgb 12.9 (12.0-16.0) g/dL Hct 39.7 (37.0-47.0) % MCV 96.4 (81.0-99.0) fL MCH 31.3 H (27.0-31.0) pg MCHC 32.5 (32.0-36.0) g/dL RDW 13.0 (12.0-15.0) % Plt Count 198 (130-450) 10^3/uL MPV 12.1 H (7.9-10.8) fL Neut # (Auto) 5.4 (1.5-6.6) 10^3/uL Lymph # (Auto) 1.2 L (1.5-3.5) 10^3/uL [place] # (Auto) 1.2 H (0.0-1.0) 10^3/uL Eos # (Auto) 0.1 (0.0-0.7) 10^3/uL Baso # (Auto) 0.0 (0.0-0.1) 10^3/uL Absolute Nucleated RBC 0.00 x10^3/uL Nucleated RBC % 0.0 /100WBC VBG pH (7.31-7.41) Ionized Calcium (1.15-1.33) mmol/L Sodium (135-145) mmol/L Potassium (3.5-5.0) mmol/L Chloride (101-111) mmol/L Carbon Dioxide (21-32) mmol/L Anion Gap (6-13) BUN (6-20) mg/dL Creatinine (0.4-1.0) mg/dL Estimated GFR (MDRD) (>89) Glucose (70-100) mg/dL POC Whole Bld Glucose 165 H 131 H (70 - 100) mg/dL Calcium (8.5-10.3) mg/dL Phosphorus (2.5-4.6) mg/dL Magnesium (1.7-2.8) mg/dL TSH (0.34-5.60) uIU/mL 07/10/20 Range/Units 11:47 WBC (4.8-10.8) x10^3/uL RBC (4.20-5.40) 10^6/uL Hgb (12.0-16.0) g/dL Hct (37.0-47.0) % MCV (81.0-99.0) fL MCH (27.0-31.0) pg MCHC (32.0-36.0) g/dL RDW (12.0-15.0) % Plt Count (130-450) 10^3/uL MPV (7.9-10.8) fL Neut # (Auto) (1.5-6.6) 10^3/uL Lymph # (Auto) (1.5-3.5) 10^3/uL [place] # (Auto) (0.0-1.0) 10^3/uL Eos # (Auto) (0.0-0.7) 10^3/uL Baso # (Auto) (0.0-0.1) 10^3/uL Absolute Nucleated RBC x10^3/uL Nucleated RBC % /100WBC VBG pH (7.31-7.41) Ionized Calcium (1.15-1.33) mmol/L Sodium (135-145) mmol/L Potassium (3.5-5.0) mmol/L Chloride (101-111) mmol/L Carbon Dioxide (21-32) mmol/L Anion Gap (6-13) BUN (6-20) mg/dL Creatinine (0.4-1.0) mg/dL Estimated GFR (MDRD) (>89) Glucose (70-100) mg/dL POC Whole Bld Glucose 100 (70 - 100) mg/dL Calcium (8.5-10.3) mg/dL Phosphorus (2.5-4.6) mg/dL Magnesium (1.7-2.8) mg/dL TSH (0.34-5.60) uIU/mL Sepsis Event Note (H) - Evaluation Current Stage of Sepsis: Septic shock Possible source of Sepsis: positive: Genitourinary - Sepsis Criteria Sepsis Criteria: Recorded Temperature greater than 38.3C or Less than 36C, Recorded Respiratory Rate greater than 20, SBP drop more than 40mHg, SBP less than 90 mmHg Assessment/Plan - Problem List (1) Septic shock Impression: This is believed to be secondary to urinary tract infection. She remains afebrile given her fevers yesterday evening. She was also started on norepinephrine for hypotension yesterday. Her blood pressure has remained stable on 4 mcg of norepinephrine and we are now weaning this down. She has been afebrile since yesterday evening. Her white count remains normal. At this time, we will continue her on meropenem IV with today being day 3. We will continue to wean the norepinephrine for mean arterial pressure greater than 65 mmHg. Continue to follow-up blood cultures have been negative to date. We will continue gentle IV fluids. (2) Urinary tract infection Impression: This is believed to be the source of her sepsis and septic shock. Culture is growing ESBL E. coli which is only sensitive to ertapenem, imipenem and Macrobid. Blood cultures been negative to date. CT the abdomen pelvis on admission was unremarkable. We will keep her on meropenem IV with today being day 3. She will need at least 1 week of IV antibiotics and she may ultimately need a PICC line to complete this on an outpatient basis. Qualifiers: Urinary tract infection type: acute cystitis Hematuria presence: with hematuria Qualified Code(s): N30.01 - Acute cystitis with hematuria (3) History of DVT (deep vein thrombosis) Impression: Continue Xarelto. (4) Dementia Impression: She remains at her baseline neurologic status. She has not shown evidence of delirium during his hospitalization and her daughter is actually quite pleased with how the patient has been she has a history of delirium and agitation during hospitalizations. Qualifiers: Dementia type: unspecified type Dementia behavioral disturbance: without behavioral disturbance Qualified Code(s): F03.90 - Unspecified dementia without behavioral disturbance
[2020-07-11] MEDS: MEROPENEM 1 GM in SODIUM CHLORIDE 0.9% MINIBAG 100 ML IV SCH ×2 (09:57→22:12)
[2020-07-11] MEDS: DOCUSATE SODIUM 250 MG CAPSULE PO SCH (10:00)
[2020-07-11] MEDS: MEMANTINE 5 MG TABLET PO SCH ×2 (10:00→21:10)
[2020-07-11] MEDS: SERTRALINE 50 MG TABLET PO SCH (10:00)
[2020-07-11] MEDS: RIVAROXABAN 15 MG TABLET PO SCH (10:04)
[2020-07-11] MEDS: ACETAMINOPHEN 325 MG TABLET PO PRN ×2 (10:30→18:59)
[2020-07-11] MEDS: LACTOBACILLUS RHAMNOSUS GG CAPSULE PO SCH (14:35)
--- NOTE | 2020-07-11 15:13 | PHARMACY PROGRESS NOTE ---
- Best Possible Medication History Admit Date and Time: 07/09/20 1500 Processed by: Nursing Medication History completed: Yes As the person ultimately responsible for medication therapy, providers are able to order a medication from an existing home medication list in [facility] via the "Reconcile Routine" prior to Confirmation of that medication by arch support maker. Such practice is discouraged except when the physician, in their clinical judgment, deems that a medical need exists for a medication without regard to previous use.
[2020-07-11] MEDS: ATORVASTATIN 40 MG TABLET PO SCH (21:10)
[2020-07-12 05:07] LABS: BASOPHILS % (AUTO) 0.4 %; EOSINOPHILS # (AUTO) 0.2 10^3/uL (0.0-0.7); EOSINOPHILS % (AUTO) 2.6 %; HGB - HEMOGLOBIN 12.8 g/dL (12.0-16.0); LYMPHOCYTES # (AUTO) 1.3 10^3/uL (1.5-3.5); LYMPHOCYTES % (AUTO) 14.7 %; MEAN CORPUSCULAR HEMOGLOBIN 31.1 pg (27.0-31.0); MEAN CORPUSCULAR HGB CONC 32.7 g/dL (32.0-36.0); MEAN CORPUSCULAR VOLUME 95.1 fL (81.0-99.0); MEAN PLATELET VOLUME 11.6 fL (7.9-10.8); MONOCYTES # (AUTO) 1.1 10^3/uL (0.0-1.0); MONOCYTES % (AUTO) 13.1 %; NEUTROPHILS # (AUTO) 5.9 10^3/uL (1.5-6.6); NEUTROPHILS % (AUTO) 68.7 %; PLT - PLATELET COUNT 201 10^3/uL (130-450); RED BLOOD COUNT 4.11 10^6/uL (4.20-5.40); RED CELL DISTRIBUTION WIDTH 12.9 % (12.0-15.0); WHITE BLOOD COUNT 8.5 x10^3/uL (4.8-10.8)
[2020-07-12 05:09] LABS: VBG PH 7.404 (7.31-7.41)
[2020-07-12 05:18] LABS: CALCIUM 8.3 mg/dL (8.5-10.3); CREATININE 0.8 mg/dL (0.4-1.0); MAGNESIUM 1.6 mg/dL (1.7-2.8); PHOSPHORUS 2.2 mg/dL (2.5-4.6)
[2020-07-12] MEDS: SODIUM CHLORIDE FLUSH 0.9% 10 ML SYRINGE IVP SCH ×5 (06:40→22:30)
[2020-07-12] MEDS ORDERED: LACTATED RINGERS 1,000 ML IV ONE (07:27)
[2020-07-12] MEDS: SERTRALINE 50 MG TABLET PO SCH (09:21)
[2020-07-12] MEDS: NEUTRA-PHOS 250 MG TABLET PO SCH ×2 (09:21→11:38)
[2020-07-12] MEDS: MAGNESIUM OXIDE 400 MG TABLET PO SCH ×2 (09:21→14:08)
[2020-07-12] MEDS: MEMANTINE 5 MG TABLET PO SCH ×2 (09:22→21:02)
[2020-07-12] MEDS: RIVAROXABAN 15 MG TABLET PO SCH (09:22)
[2020-07-12] MEDS: DOCUSATE SODIUM 250 MG CAPSULE PO SCH ×2 (09:22→10:33)
[2020-07-12] MEDS: SENNA 8.6 MG TABLET PO SCH (10:09)
[2020-07-12] MEDS: MEROPENEM 1 GM in SODIUM CHLORIDE 0.9% MINIBAG 100 ML IV SCH ×2 (10:20→22:28)
[2020-07-12] MEDS: LACTATED RINGERS 1,000 ML IV SCH ×2 (11:30→21:24)
--- NOTE | 2020-07-12 12:12 | PROVIDER PROGRESS NOTE ---
Subjective - Prog Note Date Prog Note Date: 07/12/20 - Subjective Subjective: She is a little more awake this morning. She ate all of her breakfast. She will say "yes" to all of my questions. Daughter remains at bedside. Current Medications - Current Medications Current Medications: Active Medications Acetaminophen (Tylenol) 650 mg PO Q4HR PRN PRN Reason: Pain 1 to 4 Last Admin: 07/11/20 18:59 Dose: 650 mg Documented by: Atorvastatin Calcium (Lipitor) 40 mg PO QPM [facility] Last Admin: 07/11/20 21:10 Dose: 40 mg Documented by: Docusate Sodium (Colace 250mg Capsule) 250 - 500 mg PO DAILY [facility] Last Admin: 07/12/20 10:33 Dose: Not Given Documented by: Lactated Ringer's (Lr) 1,000 mls @ 100 mls/hr IV .Q10H [facility] Last Admin: 07/12/20 11:30 Dose: 100 mls/hr Documented by: Meropenem 1 gm/ Sodium (Chloride) 100 mls @ 200 mls/hr IV Q12H [facility] Last Admin: 07/12/20 10:20 Dose: 200 mls/hr Documented by: Lactobacillus Rhamnosus (Culturelle) 1 cap PO DAILY [facility] Last Admin: 07/11/20 14:35 Dose: 1 cap Documented by: Magnesium Oxide (Mag Ox) 400 mg PO Q6H [facility]; Protocol Stop: 07/12/20 14:01 Last Admin: 07/12/20 09:21 Dose: 400 mg Documented by: Memantine (Namenda) 10 mg PO BID [facility] Last Admin: 07/12/20 09:22 Dose: 10 mg Documented by: Ondansetron HCl (Zofran Inj) 4 mg IVP Q6HR PRN PRN Reason: Nausea / Vomiting Rivaroxaban (Xarelto) 15 mg PO DAILY [facility] Last Admin: 07/12/20 09:22 Dose: 15 mg Documented by: Senna (Senokot) 8.6 - 17.2 mg PO DAILY [facility] Last Admin: 07/12/20 10:09 Dose: Not Given Documented by: Sertraline HCl (Zoloft) 100 mg PO DAILY [facility] Last Admin: 07/12/20 09:21 Dose: 100 mg Documented by: Sodium Chloride (Normal Saline Flush 0.9%) 10 ml IVP 0100,0900,1700 [facility] Last Admin: 07/12/20 10:32 Dose: 10 ml Documented by: Sodium Chloride (Normal Saline Flush 0.9%) 10 ml IVP PRN PRN PRN Reason: NEEDED PER PROVIDER ORDERS Aspirin [Aspirin EC] 325 mg PO DAILY 02/15/17 Atorvastatin Calcium 40 mg PO QPM 02/15/17 LORazepam [Ativan] 0.5 mg PO Q8HR PRN 02/15/17 Memantine HCl [Namenda] 10 mg PO BID 02/15/17 Sertraline HCl [Zoloft] 100 mg PO DAILY 02/15/17 Rivaroxaban [Xarelto] 15 mg PO DAILY 07/09/20 bisacodyL [Dulcolax] 1 tab ORAL DAILY PRN 07/09/20 Objective - Vital Signs/Intake & Output Reviewed Vital Signs: Yes Vital Signs: Vital Signs Pulse Resp BP Pulse Ox 07/12/20 11:00 70 26 H 99/49 L 93 07/12/20 10:00 66 30 H 120/105 H 95 07/12/20 09:00 70 22 120/105 H Intake & Output: Intake & Output 07/09/20 07/10/20 07/11/20 07/12/20 23:59 23:59 23:59 23:59 Intake Total 3087.051 4114.417 3943.980 2416.406 Output Total 1300 1350 1625 Balance 3087.051 2814.417 2593.980 791.406 - Objective General Appearance: positive: No acute distress Eyes Bilateral: positive: Normal inspection ENT: positive: ENT inspection nml Neck: positive: Nml inspection Respiratory: positive: No respiratory distress, Other (Diminished in bases.). negative: Wheezes, Rales Cardiovascular: positive: Regular rate & rhythm, No murmur. negative: Irregularly irregular, Tachycardia, Bradycardia, Systolic murmur Abdomen: positive: Non-tender, No distention Skin: positive: Warm, Dry Extremities: positive: Pedal edema (Trace edema in bilateral lower extremities.) Neurologic/Psychiatric: positive: Other (No focal deficits on exam.) - Lab Results Fish Bones: 07/12/20 04:45 07/12/20 04:45 Other Labs: Lab Results x24hrs 07/12/20 07/12/2020 Range/Units 08:50 04:45 04:45 WBC (4.8-10.8) x10^3/uL RBC (4.20-5.40) 10^6/uL Hgb (12.0-16.0) g/dL Hct (37.0-47.0) % MCV (81.0-99.0) fL MCH (27.0-31.0) pg MCHC (32.0-36.0) g/dL RDW (12.0-15.0) % Plt Count (130-450) 10^3/uL MPV (7.9-10.8) fL Neut # (Auto) (1.5-6.6) 10^3/uL Lymph # (Auto) (1.5-3.5) 10^3/uL [place] # (Auto) (0.0-1.0) 10^3/uL Eos # (Auto) (0.0-0.7) 10^3/uL Baso # (Auto) (0.0-0.1) 10^3/uL Absolute Nucleated RBC x10^3/uL Nucleated RBC % /100WBC VBG pH 7.404 (7.31-7.41) Ionized Calcium 1.15 (1.15-1.33) mmol/L Sodium (135-145) mmol/L Potassium (3.5-5.0) mmol/L Chloride (101-111) mmol/L Carbon Dioxide (21-32) mmol/L Anion Gap (6-13) BUN (6-20) mg/dL Creatinine (0.4-1.0) mg/dL Estimated GFR (MDRD) (>89) Glucose (70-100) mg/dL POC Whole Bld Glucose (70 - 100) mg/dL Calcium (8.5-10.3) mg/dL Phosphorus (2.5-4.6) mg/dL Magnesium (1.7-2.8) mg/dL Troponin I High Sens 35.9 H* 43.4 H* (2.3-14.8) ng/L 07/12/20 07/12/20 07/11/20 Range/Units 04:45 04:45 20:56 WBC 8.5 (4.8-10.8) x10^3/uL RBC 4.11 L (4.20-5.40) 10^6/uL Hgb 12.8 (12.0-16.0) g/dL Hct 39.1 (37.0-47.0) % MCV 95.1 (81.0-99.0) fL MCH 31.1 H (27.0-31.0) pg MCHC 32.7 (32.0-36.0) g/dL RDW 12.9 (12.0-15.0) % Plt Count 201 (130-450) 10^3/uL MPV 11.6 H (7.9-10.8) fL Neut # (Auto) 5.9 (1.5-6.6) 10^3/uL Lymph # (Auto) 1.3 L (1.5-3.5) 10^3/uL [place] # (Auto) 1.1 H (0.0-1.0) 10^3/uL Eos # (Auto) 0.2 (0.0-0.7) 10^3/uL Baso # (Auto) 0.0 (0.0-0.1) 10^3/uL Absolute Nucleated RBC 0.00 x10^3/uL Nucleated RBC % 0.0 /100WBC VBG pH (7.31-7.41) Ionized Calcium (1.15-1.33) mmol/L Sodium 135 (135-145) mmol/L Potassium 3.9 (3.5-5.0) mmol/L Chloride 104 (101-111) mmol/L Carbon Dioxide 26 (21-32) mmol/L Anion Gap 5.0 L (6-13) BUN 14 (6-20) mg/dL Creatinine 0.8 (0.4-1.0) mg/dL Estimated GFR (MDRD) 69 L (>89) Glucose 118 H (70-100) mg/dL POC Whole Bld Glucose 126 H (70 - 100) mg/dL Calcium 8.3 L (8.5-10.3) mg/dL Phosphorus 2.2 L (2.5-4.6) mg/dL Magnesium 1.6 L (1.7-2.8) mg/dL Troponin I High Sens (2.3-14.8) ng/L 09/04/20 Range/Units 17:05 WBC (4.8-10.8) x10^3/uL RBC (4.20-5.40) 10^6/uL Hgb (12.0-16.0) g/dL Hct (37.0-47.0) % MCV (81.0-99.0) fL MCH (27.0-31.0) pg MCHC (32.0-36.0) g/dL RDW (12.0-15.0) % Plt Count (130-450) 10^3/uL MPV (7.9-10.8) fL Neut # (Auto) (1.5-6.6) 10^3/uL Lymph # (Auto) (1.5-3.5) 10^3/uL [place] # (Auto) (0.0-1.0) 10^3/uL Eos # (Auto) (0.0-0.7) 10^3/uL Baso # (Auto) (0.0-0.1) 10^3/uL Absolute Nucleated RBC x10^3/uL Nucleated RBC % /100WBC VBG pH (7.31-7.41) Ionized Calcium (1.15-1.33) mmol/L Sodium (135-145) mmol/L Potassium (3.5-5.0) mmol/L Chloride (101-111) mmol/L Carbon Dioxide (21-32) mmol/L Anion Gap (6-13) BUN (6-20) mg/dL Creatinine (0.4-1.0) mg/dL Estimated GFR (MDRD) (>89) Glucose (70-100) mg/dL POC Whole Bld Glucose 125 H (70 - 100) mg/dL Calcium (8.5-10.3) mg/dL Phosphorus (2.5-4.6) mg/dL Magnesium (1.7-2.8) mg/dL Troponin I High Sens (2.3-14.8) ng/L Sepsis Event Note (H) - Evaluation Current Stage of Sepsis: Septic shock Possible source of Sepsis: positive: Genitourinary - Sepsis Criteria Sepsis Criteria: Recorded Temperature greater than 38.3C or Less than 36C, Recorded Respiratory Rate greater than 20, SBP drop more than 40mHg, SBP less than 90 mmHg Assessment/Plan - Problem List (1) Septic shock Impression: She clinically appears to be improving. She did have a low-grade fevers yesterday with a temperature as high as 37.8 C. She fortunately has been weaned off of the norepinephrine this morning after she received a liter of lactated Ringer's over 2 hours. Her white count remains normal. Blood cultures have been negative to date. Today is day 4 of meropenem IV. She will likely need at least 7 days of IV antibiotics. She may need a PICC line for outpatient ertapenem depending on her clinical course. (2) UTI due to extended-spectrum beta lactamase (ESBL) producing Escherichia col i Impression: This is a source of her sepsis. Urine culture grew ESBL producing E. coli. Blood cultures have been negative to date. Today is day 4 of meropenem IV. She will need at least 7 days of antibiotics and unfortunately IV Carbapenem's are our only option. We will continue with meropenem while she is hospitalized and will discuss with social work about setting up outpatient ertapenem if deemed necessary. (3) History of DVT (deep vein thrombosis) Impression: Continue her home Xarelto. (4) Dementia Impression: Stable and she appears to be at her baseline. Qualifiers: Dementia type: unspecified type Dementia behavioral disturbance: without behavioral disturbance Qualified Code(s): F03.90 - Unspecified dementia without behavioral disturbance
[2020-07-12] MEDS: LACTOBACILLUS RHAMNOSUS GG CAPSULE PO SCH (14:18)
[2020-07-12] MEDS: ATORVASTATIN 40 MG TABLET PO SCH (21:02)
[2020-07-13 05:05] LABS: BASOPHILS % (AUTO) 0.3 %; EOSINOPHILS # (AUTO) 0.2 10^3/uL (0.0-0.7); EOSINOPHILS % (AUTO) 2.3 %; HGB - HEMOGLOBIN 12.4 g/dL (12.0-16.0); LYMPHOCYTES # (AUTO) 1.4 10^3/uL (1.5-3.5); LYMPHOCYTES % (AUTO) 14.4 %; MEAN CORPUSCULAR HEMOGLOBIN 31.5 pg (27.0-31.0); MEAN CORPUSCULAR HGB CONC 32.9 g/dL (32.0-36.0); MEAN CORPUSCULAR VOLUME 95.7 fL (81.0-99.0); MEAN PLATELET VOLUME 11.4 fL (7.9-10.8); MONOCYTES # (AUTO) 1.2 10^3/uL (0.0-1.0); MONOCYTES % (AUTO) 12.1 %; NEUTROPHILS # (AUTO) 6.9 10^3/uL (1.5-6.6); NEUTROPHILS % (AUTO) 70.7 %; PLT - PLATELET COUNT 230 10^3/uL (130-450); RED BLOOD COUNT 3.94 10^6/uL (4.20-5.40); RED CELL DISTRIBUTION WIDTH 12.9 % (12.0-15.0); WHITE BLOOD COUNT 9.7 x10^3/uL (4.8-10.8)
[2020-07-13 05:17] LABS: CALCIUM 8.4 mg/dL (8.5-10.3); MAGNESIUM 1.7 mg/dL (1.7-2.8); PHOSPHORUS 2.5 mg/dL (2.5-4.6)
--- NOTE | 2020-07-13 07:18 | PROVIDER PROGRESS NOTE ---
Subjective - Prog Note Date Prog Note Date: 07/13/20 - Subjective Subjective: She was weaned off of norepinephrine yesterday morning but this needed to be resumed in the afternoon as her systolic dipped to the 80s. Patient remains comfortable in bed. Family is at bedside. Current Medications - Current Medications Current Medications: Active Medications Acetaminophen (Tylenol) 650 mg PO Q4HR PRN PRN Reason: Pain 1 to 4 Last Admin: 07/11/20 18:59 Dose: 650 mg Documented by: Atorvastatin Calcium (Lipitor) 40 mg PO QPM [facility] Last Admin: 07/12/20 21:02 Dose: 40 mg Documented by: Docusate Sodium (Colace 250mg Capsule) 250 - 500 mg PO DAILY [facility] Last Admin: 07/12/20 10:33 Dose: Not Given Documented by: Lactated Ringer's (Lr) 1,000 mls @ 100 mls/hr IV .Q10H [facility] Last Admin: 07/13/20 07:48 Dose: 100 mls/hr Documented by: Meropenem 1 gm/ Sodium (Chloride) 100 mls @ 200 mls/hr IV Q12H [facility] Last Infusion: 07/13/20 08:49 Dose: 5.6 mls/hr Documented by: Norepinephrine Bitartrate 8 mg (/ Dextrose) 250 mls @ 0 mls/hr IV .Q0M [facility]; Protocol Lactobacillus Rhamnosus (Culturelle) 1 cap PO DAILY [facility] Last Admin: 07/12/20 14:18 Dose: 1 cap Documented by: Memantine (Namenda) 10 mg PO BID [facility] Last Admin: 07/12/20 21:02 Dose: 10 mg Documented by: Ondansetron HCl (Zofran Inj) 4 mg IVP Q6HR PRN PRN Reason: Nausea / Vomiting Rivaroxaban (Xarelto) 15 mg PO DAILY [facility] Last Admin: 07/12/20 09:22 Dose: 15 mg Documented by: Senna (Senokot) 8.6 - 17.2 mg PO DAILY [facility] Last Admin: 07/12/20 10:09 Dose: Not Given Documented by: Sertraline HCl (Zoloft) 100 mg PO DAILY [facility] Last Admin: 07/12/20 09:21 Dose: 100 mg Documented by: Sodium Chloride (Normal Saline Flush 0.9%) 10 ml IVP 0100,0900,1700 [facility] Last Admin: 07/12/20 22:30 Dose: 10 ml Documented by: Sodium Chloride (Normal Saline Flush 0.9%) 10 ml IVP PRN PRN PRN Reason: NEEDED PER PROVIDER ORDERS Aspirin [Aspirin EC] 325 mg PO DAILY 02/15/17 Atorvastatin Calcium 40 mg PO QPM 02/15/17 LORazepam [Ativan] 0.5 mg PO Q8HR PRN 02/15/17 Memantine HCl [Namenda] 10 mg PO BID 02/15/17 Sertraline HCl [Zoloft] 100 mg PO DAILY 02/15/17 Rivaroxaban [Xarelto] 15 mg PO DAILY 07/09/20 bisacodyL [Dulcolax] 1 tab ORAL DAILY PRN 07/09/20 Objective - Vital Signs/Intake & Output Reviewed Vital Signs: Yes Vital Signs: Vital Signs Temp Pulse Resp BP Pulse Ox 07/13/20 07:00 60 21 111/65 91 L 07/13/20 06:00 60 21 124/64 92 07/13/20 05:00 60 26 H 132/67 H 93 07/13/20 04:00 37 C 62 23 122/63 95 Intake & Output: Intake & Output 07/10/20 07/11/20 07/12/20 07/13/20 23:59 23:59 23:59 23:59 Intake Total 4114.417 3943.980 4743.654 475 Output Total 1300 1350 2955 500 Balance 2814.417 2593.980 1788.654 -25 - Objective General Appearance: positive: No acute distress Eyes Bilateral: positive: Normal inspection, Conjunctivae nml ENT: positive: ENT inspection nml Neck: positive: Nml inspection Respiratory: positive: No respiratory distress. negative: Wheezes, Rales Cardiovascular: positive: Regular rate & rhythm. negative: Irregularly irregular, Tachycardia, Systolic murmur Skin: positive: Warm, Dry Extremities: positive: Pedal edema (Trace edema in bilateral lower extremities.) - Lab Results Fish Bones: 07/13/20 04:45 07/13/20 04:45 Other Labs: Lab Results x24hrs 07/13/20 07/13/20 07/12/20 Range/Units 04:45 04:45 08:50 WBC 9.7 (4.8-10.8) x10^3/uL RBC 3.94 L (4.20-5.40) 10^6/uL Hgb 12.4 (12.0-16.0) g/dL Hct 37.7 (37.0-47.0) % MCV 95.7 (81.0-99.0) fL MCH 31.5 H (27.0-31.0) pg MCHC 32.9 (32.0-36.0) g/dL RDW 12.9 (12.0-15.0) % Plt Count 230 (130-450) 10^3/uL MPV 11.4 H (7.9-10.8) fL Neut # (Auto) 6.9 H (1.5-6.6) 10^3/uL Lymph # (Auto) 1.4 L (1.5-3.5) 10^3/uL Morgan # (Auto) 1.2 H (0.0-1.0) 10^3/uL Eos # (Auto) 0.2 (0.0-0.7) 10^3/uL Baso # (Auto) 0.0 (0.0-0.1) 10^3/uL Absolute Nucleated RBC 0.00 x10^3/uL Nucleated RBC % 0.0 /100WBC Sodium 135 (135-145) mmol/L Potassium 3.8 (3.5-5.0) mmol/L Chloride 104 (101-111) mmol/L Carbon Dioxide 25 (21-32) mmol/L Anion Gap 6.0 (6-13) BUN 18 (6-20) mg/dL Creatinine 1.0 (0.4-1.0) mg/dL Estimated GFR (MDRD) 53 L (>89) Glucose 130 H (70-100) mg/dL Calcium 8.4 L (8.5-10.3) mg/dL Phosphorus 2.5 (2.5-4.6) mg/dL Magnesium 1.7 (1.7-2.8) mg/dL Troponin I High Sens 35.9 H* (2.3-14.8) ng/L 07/12/20 Range/Units 04:45 WBC (4.8-10.8) x10^3/uL RBC (4.20-5.40) 10^6/uL Hgb (12.0-16.0) g/dL Hct (37.0-47.0) % MCV (81.0-99.0) fL MCH (27.0-31.0) pg MCHC (32.0-36.0) g/dL RDW (12.0-15.0) % Plt Count (130-450) 10^3/uL MPV (7.9-10.8) fL Neut # (Auto) (1.5-6.6) 10^3/uL Lymph # (Auto) (1.5-3.5) 10^3/uL Morgan # (Auto) (0.0-1.0) 10^3/uL Eos # (Auto) (0.0-0.7) 10^3/uL Baso # (Auto) (0.0-0.1) 10^3/uL Absolute Nucleated RBC x10^3/uL Nucleated RBC % /100WBC Sodium (135-145) mmol/L Potassium (3.5-5.0) mmol/L Chloride (101-111) mmol/L Carbon Dioxide (21-32) mmol/L Anion Gap (6-13) BUN (6-20) mg/dL Creatinine (0.4-1.0) mg/dL Estimated GFR (MDRD) (>89) Glucose (70-100) mg/dL Calcium (8.5-10.3) mg/dL Phosphorus (2.5-4.6) mg/dL Magnesium (1.7-2.8) mg/dL Troponin I High Sens 43.4 H* (2.3-14.8) ng/L Sepsis Event Note (H) - Evaluation Current Stage of Sepsis: Septic shock Possible source of Sepsis: positive: Genitourinary - Sepsis Criteria Sepsis Criteria: Recorded Temperature greater than 38.3C or Less than 36C, Recorded Respiratory Rate greater than 20, SBP drop more than 40mHg, SBP less than 90 mmHg Assessment/Plan - Problem List (1) Septic shock Impression: This is believed to be secondary to the urinary tract infection. She had been weaned off of norepinephrine yesterday morning but unfortunate became hypotens kimberly in the afternoon and this was resumed. She currently remains on norepinephrine at 5 mcg a minute. She has not positive over 7 L to date and she does have lower extremity edema so believe she has been adequately resuscitated. She also remains on meropenem IV. At this time, we will continue IV antibiotics and continue gentle hydration. We will recheck a lactic acid today. Continue to wean pressors as tolerated. (2) UTI due to extended-spectrum beta lactamase (ESBL) producing Escherichia coli Impression: This is believed to be the source of her sepsis. She remains on meropenem IV with today being day 5. She will nearly 7 days of IV antibiotics and if she is clinically slow to improve, this may need to be prolonged and she may ultimately need a PICC line for outpatient IV ertapenem. (3) Hypotension Impression: This is presumed to be secondary to septic shock given her urinary tract infection and fevers on admission. An a.m. cortisol was checked this morning which was within normal limits. Troponin was checked yesterday which was mildly elevated but is trending down. She clinically does not appear to be in cardiogenic shock as she is perfusing her organs and her renal function remains stable. She is net positive over 7 L since admission and she does have some lower extremity edema so do not suspect she is hypovolemic. At this time, I do believe this is related to her sepsis and this should continue to improve she received antibiotics. We will continue her on norepinephrine and wean as tolerated for goal systolic in the 90 or mean arterial pressure greater than 65. We will obtain echocardiogram once this is available if she remains hospitalized until Tuesday. I will recheck a lactic acid today to ensure this is within normal limits. We will also start her on Midodrine 5 mg 3 times daily. (4) History of DVT (deep vein thrombosis) Impression: Continue Xarelto. (5) Dementia Impression: Stable and at baseline per Qualifiers: Dementia type: unspecified type Dementia behavioral disturbance: without behavioral disturbance Qualified Code(s): F03.90 - Unspecified dementia without behavioral disturbance
[2020-07-13] MEDS: LACTATED RINGERS 1,000 ML IV SCH ×3 (07:48→19:21)
[2020-07-13] MEDS: SODIUM CHLORIDE FLUSH 0.9% 10 ML SYRINGE IVP SCH ×2 (09:00→17:40)
[2020-07-13] MEDS: DOCUSATE SODIUM 250 MG CAPSULE PO SCH (09:24)
[2020-07-13] MEDS ORDERED: NORepinephrine 8 MG in DEXTROSE 5% 250ML IV SCH ×6 (10:00)
[2020-07-13] MEDS: MEROPENEM 1 GM in SODIUM CHLORIDE 0.9% MINIBAG 100 ML IV SCH ×2 (10:04→21:23)
[2020-07-13] MEDS: MEMANTINE 5 MG TABLET PO SCH ×2 (10:30→21:23)
[2020-07-13] MEDS: RIVAROXABAN 15 MG TABLET PO SCH (10:56)
[2020-07-13] MEDS: SERTRALINE 50 MG TABLET PO SCH (10:56)
[2020-07-13] MEDS: SENNA 8.6 MG TABLET PO SCH (12:00)
[2020-07-13 12:53] LABS: ALBUMIN 2.3 g/dL (3.2-5.5); ALKALINE PHOSPHATASE 47 IU/L (42-121); ALT ALANINE AMINOTRANSFERASE 99 IU/L (10-60); AST ASPARTATE AMINOTRANSFERASE 82 IU/L (10-42); BILIRUBIN,TOTAL 0.4 mg/dL (0.2-1.0); TOTAL PROTEIN 4.9 g/dL (6.7-8.2)
[2020-07-13 13:07] LABS: BILIRUBIN,DIRECT < 0.1 mg/dL (0.1-0.5)
[2020-07-13] MEDS: LACTOBACILLUS RHAMNOSUS GG CAPSULE PO SCH (13:58)
--- NOTE | 2020-07-13 14:01 | ADVANCE CARE PLANNING NOTE ---
Advance Care Planning - Planning Encounter Date: 07/13/20 Time: 13:00 Purpose: To clarify goals of care. Parties in Attendance: The patient was present as well as her son, Neno, who was at bedside. The patient's nurse, Angy, was also present. The patient's daughter, Danielle, was present over the phone. Decisional Capacity of the Patient: The patient has advanced dementia and is unable to make her own medical deci sions. - Diagnosis for Encounter (1) Septic shock Summary: The patient has been hospitalized now for 5 days secondary to septic shock due to ESBL producing E. coli. She remains in the intensive care unit on norepinephrine. Despite the hypotension, she appears to be perfusing her organs. Her renal function has remained stable. Her lactic acid has been normal. It is difficult to assess her neurologic status given her advanced dementia but she appears to be at her baseline speaking to her family. Despite IV antibiotics and IV fluid resuscitation, she remains hypotensive. We are continuing norepinephrine and starting her on midodrine today. (2) Dementia Qualifiers: Dementia type: unspecified type Dementia behavioral disturbance: without behavioral disturbance Qualified Code(s): F03.90 - Unspecified dementia without behavioral disturbance Summary: The patient has had dementia for over 10 years which unfortunately has continued to progress. She has required caregivers over the past 4 years and she curre ntly has two 24-hour caregivers. She had been previously ambulating over the past. Time, her functional status has continued to decline. She will most often get around with a wheelchair now. Her appetite has remained quite excellent and she does eat well. Family tells me that she does not know their names but will recognize them. The patient is minimally verbal and will just often say yes or no. - Encounter Subjective/Patient's Story: The patient is but has 3 children in her life. Her at the end of the 2018 going on to early 2019. He unfortunately had a fall about 10 years ago where he had significant head trauma. This caused him to have significant cognitive decline over the past 10 years. The patient's son, Neno, tells me that the patient had dementia over 10 years ago but after her 's accident, she declined significantly as well and would have behavioral problems. Both the patient and her required caregivers about 4 years ago. Neno tells me that after his father's passing in early 2018, the patient continued to decline from a cognitive standpoint. She knew that her was no longer present but did not understand what he from. The patient has required 24-hour caregivers due to her advanced dementia. Her family tells me they have had one caregiver present for the past 4 years had to replace the second caregiver multiple times. The patient does really well with original caregiver the family has noticed significant decline when second caregiver has been replaced. The patient was ambulating before with assistance but now usually gets around with a wheelchair. She is dependent for all of her ADLs. Her family tells me she normally sleeps quite a bit and will get up at 10 AM for breakfast. She normally falls back to sleep at around 9 PM and she sleeps through most of the night. 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 Unfortunately, with her progressive dementia she does not know her children's names but will reportedly recognize them. Objective/Medical Story: The patient has known advanced dementia but besides that, she has a history of DVT and pulmonary embolism. The family tells me this was diagnosed a couple of years ago after she was complaining of right leg pain. This was reportedly dismissed when she was seen in the emergency department and blamed on osteoarthritis. She was seen a few days later and diagnosed with pulmonary embolism and DVT. She has been on Xarelto since then. The patient has not been hospitalized frequently but she is now hospitalized with septic shock secondary to urinary tract infection. She reportedly was diagnosed with a urinary tract infection just a few weeks ago and completed 3 days of antibiotics. She is now in the intensive care unit as mentioned above requiring norepinephrine. Goals of Care: I had initially spoken with the patient's daughter, Danielle, on admission to discuss goals of care at that time the patient was a full code. Danielle stated that her brother, Neno, would want the patient to be a full code. Danielle initially did not want her mother to be hospitalized at our facility as they have had bad experiences in the past with providers and our hospital system. They preferred to go to [place] in [place]. I did mention to her that I am concerned the patient may be septic and she recognized that sepsis is quite a serious illness and she was ultimately agreeable to admission here. Over the past 5 days, Danielle is quite happy with the care her mother has received here and is thankful that the patient has been at our facility. Neno today tells me that he was concerned about his mother being hospitalized because they had a bad experience with the father near the end of his life. He states doctors have told him in the past that they do not want to use medical resources on the elderly patients. He also states that his father with a stubborn old man and he was chemically sedated during 1 of his hospitalizations for agitation and being stubborn. He states that since that time, his father remained confused and not himself. He was ultimately admitted to the hospital for urinary tract infection and he felt that he was discharged too early and ended up passing away 2 days later. This has caused the whole family to be very wary of hospitals and physicians as mentioned previously. Neno is very close to his mother and does not want to lose her but also understands her declining functional and cognitive status. He does not want his mother to being neglected similar to how his father was near the end of his life. Plan: At this time, the patient remains a full code. Danielle and Neno will discuss with their third brother regarding goals of care. They understand what entails of CPR and the fact that the patient has advanced dementia at baseline, she would have a very poor prognosis even if she were to recover from a cardiac arrest. They would like to discuss further before changing her CODE STATUS. We discussed that there is a POLST form which can be filled out to reflect the patient's wishes. I told them that we do not need an answer today but I do want them to think about this as I would be concerned about performing CPR on the patient as he would likely put her through more harm than good. Additional Discussion: We spent over 15 minutes going over what entails of CPR including the immediate ramifications as well as the potential long-term consequences. This included the need for an ICU stay and mechanical ventilation as well as assessing the patient's neurologic function after return of spontaneous circulation. I also noted to them that some patients require long-term mechanical ventilation which requires a tracheostomy and this almost always necessitates a long-term where patients can develop other infections in his usual leads to multiple hospitalization. I also informed them that CPR will always cause broken ribs if done correctly and this can cause patients to be in quite a bit of pain and lead to difficulty breathing especially in elderly patients. Code Status: Attempt Resuscitation Time spent on advance care plannin
[2020-07-13] MEDS: MIDODRINE 2.5 MG TABLET PO SCH ×2 (15:00→21:23)
[2020-07-13] MEDS: ATORVASTATIN 40 MG TABLET PO SCH (21:23)
[2020-07-14] MEDS: LACTATED RINGERS 1,000 ML IV SCH (04:09)
[2020-07-14] MEDS: SODIUM CHLORIDE FLUSH 0.9% 10 ML SYRINGE IVP SCH ×3 (06:01→17:57)
[2020-07-14] MEDS: MIDODRINE 2.5 MG TABLET PO SCH ×3 (06:22→22:12)
--- NOTE | 2020-07-14 07:35 | PROVIDER PROGRESS NOTE ---
Subjective - Prog Note Date Prog Note Date: 07/14/20 - Subjective Subjective: Patient appears comfortable at bed. She is asleep. Family is present at bedside. She remains on norepinephrine. Current Medications - Current Medications Current Medications: Active Medications Acetaminophen (Tylenol) 650 mg PO Q4HR PRN PRN Reason: Pain 1 to 4 Last Admin: 07/11/20 18:59 Dose: 650 mg Documented by: Atorvastatin Calcium (Lipitor) 40 mg PO QPM [facility] Last Admin: 07/13/20 21:23 Dose: 40 mg Documented by: Docusate Sodium (Colace 250mg Capsule) 250 - 500 mg PO DAILY [facility] Last Admin: 07/14/20 09:31 Dose: 250 mg Documented by: Meropenem 1 gm/ Sodium (Chloride) 100 mls @ 200 mls/hr IV Q12H [facility] Last Admin: 07/14/20 09:35 Dose: 200 mls/hr Documented by: Norepinephrine Bitartrate 8 mg (/ Dextrose) 250 mls @ 0 mls/hr IV .Q0M [facility]; Protocol Last Titration: 07/14/20 08:11 Dose: 2 mcg/min, 3.75 mls/hr Documented by: Potassium Phosphate 15 mmol/ (Sodium Chloride) 255 mls @ 63 mls/hr IV ONCE ONE Stop: 07/14/20 13:08 Last Admin: 07/14/20 10:08 Dose: 63 mls/hr Documented by: Lactobacillus Rhamnosus (Culturelle) 1 cap PO DAILY [facility] Last Admin: 07/14/20 09:41 Dose: 1 cap Documented by: Memantine (Namenda) 10 mg PO BID [facility] Last Admin: 07/14/20 10:03 Dose: 10 mg Documented by: Midodrine () 5 mg PO TID [facility] Last Admin: 07/14/20 06:22 Dose: 5 mg Documented by: Ondansetron HCl (Zofran Inj) 4 mg IVP Q6HR PRN PRN Reason: Nausea / Vomiting Rivaroxaban (Xarelto) 15 mg PO DAILY [facility] Last Admin: 07/14/20 09:32 Dose: 15 mg Documented by: Senna (Senokot) 8.6 - 17.2 mg PO DAILY [facility] Last Admin: 07/14/20 09:41 Dose: 8.6 mg Documented by: Sertraline HCl (Zoloft) 100 mg PO DAILY [facility] Last Admin: 07/14/20 09:32 Dose: 100 mg Documented by: Sodium Chloride (Normal Saline Flush 0.9%) 10 ml IVP 0100,0900,1700 [facility] Last Admin: 07/14/20 10:18 Dose: 10 ml Documented by: Sodium Chloride (Normal Saline Flush 0.9%) 10 ml IVP PRN PRN PRN Reason: NEEDED PER PROVIDER ORDERS Aspirin [Aspirin EC] 325 mg PO DAILY 02/15/17 Atorvastatin Calcium 40 mg PO QPM 02/15/17 LORazepam [Ativan] 0.5 mg PO Q8HR PRN 02/15/17 Memantine HCl [Namenda] 10 mg PO BID 02/15/17 Sertraline HCl [Zoloft] 100 mg PO DAILY 02/15/17 Rivaroxaban [Xarelto] 15 mg PO DAILY 07/09/20 bisacodyL [Dulcolax] 1 tab ORAL DAILY PRN 07/09/20 Objective - Vital Signs/Intake & Output Reviewed Vital Signs: Yes Vital Signs: Vital Signs Temp Pulse Resp BP Pulse Ox 07/14/20 07:00 60 20 94/70 93 07/14/20 06:00 59 L 20 109/57 L 93 07/14/20 05:00 65 20 114/55 L 95 07/14/20 04:00 36.9 C 55 L 18 107/52 L 95 Intake & Output: Intake & Output 07/11/20 07/12/20 07/13/20 07/14/20 23:59 23:59 23:59 23:59 Intake Total 3943.980 4783.654 3388.021 1100 Output Total 1350 2955 2100 800 Balance 2593.980 4447.828 7567.021 300 - Objective General Appearance: positive: No acute distress, Other (She appears comfortable and asleep in bed. She will wake up for food but otherwise sleeps most of the day.) Eyes Bilateral: positive: Normal inspection Respiratory: positive: No respiratory distress, Rales. negative: Breath sounds nml, Wheezes Cardiovascular: positive: Regular rate & rhythm. negative: Irregularly irregular, Tachycardia, Bradycardia, Systolic murmur Abdomen: positive: Non-tender, No distention. negative: Tenderness Extremities: positive: Pedal edema (Trace edema in bilaetal lower extremites.) - Lab Results Fish Bones: 07/14/20 07:25 07/14/20 07:25 Other Labs: Lab Results x24hrs 07/13/20 07/13/20 07/13/20 Range/Units 12:25 12:25 12:25 Lactic Acid 1.4 (0.5-2.2) mmol/L Total Bilirubin 0.4 (0.2-1.0) mg/dL Direct Bilirubin < 0.1 L (0.1-0.5) mg/dL AST 82 H (10-42) IU/L ALT 99 H (10-60) IU/L Alkaline Phosphatase 47 (42-121) IU/L Troponin I High Sens 16.8 H* (2.3-14.8) ng/L Total Protein 4.9 L (6.7-8.2) g/dL Albumin 2.3 L (3.2-5.5) g/dL Globulin 2.6 (2.1-4.2) g/dL Cortisol AM Sample ug/dL 07/13/20 Range/Units 08:16 Lactic Acid (0.5-2.2) mmol/L Total Bilirubin (0.2-1.0) mg/dL Direct Bilirubin (0.1-0.5) mg/dL AST (10-42) IU/L ALT (10-60) IU/L Alkaline Phosphatase (42-121) IU/L Troponin I High Sens (2.3-14.8) ng/L Total Protein (6.7-8.2) g/dL Albumin (3.2-5.5) g/dL Globulin (2.1-4.2) g/dL Cortisol AM Sample 17.6 ug/dL Sepsis Event Note (H) - Evaluation Current Stage of Sepsis: Septic shock Possible source of Sepsis: positive: Genitourinary - Sepsis Criteria Sepsis Criteria: Recorded Temperature greater than 38.3C or Less than 36C, Recorded Respiratory Rate greater than 20, SBP drop more than 40mHg, SBP less than 90 mmHg Assessment/Plan - Problem List (1) Septic shock Impression: She remains on norepinephrine although her requirements are quite minimal. She has been afebrile for more than 48 hours. Her white count is slightly increased today but she appears to be improving from a sepsis standpoint. This is secondary to the ESBL producing E. coli urinary tract infection. Blood cultures have been negative to date. Continue on meropenem IV. Continue to wean norepinephrine for systolic blood pressure getting 90 or mean arterial pressure greater than 65. (2) Hypotension Impression: She remains hypotensive and is requiring norepinephrine at 1 mcg a minute. She was started on midodrine yesterday. She has not shown evidence of hypoperfusion as her lactic acid is normal and her renal function has remained excellent. This is believed to be secondary to her sepsis. We will continue to wean norepinephrine with a goal systolic pressure greater than 90 as her blood pressure is normally in the low 100s and she does not show evidence of hypoperfusion. We will continue midodrine at 5 mg 3 times daily but will increase this tomorrow if she remains on norepinephrine. We will hold off on further IV fluids given her lower extremity edema and she has evidence of CHF on chest x-ray. Will obtain echocardiogram tomorrow. Continue to monitor for evidence of hypoperfusion. (3) UTI due to extended-spectrum beta lactamase (ESBL) producing Escherichia coli Impression: This is the source of her sepsis. She remains on meropenem IV. Will discuss with infectious disease regarding length of treatment as normally we would treat for 7 to 10 days but given her hypotension and slow response, she may need a longer treatment course in which she would need a PICC line and IV ertapenem on outpatient basis. (4) Hypoxia Impression: She is hypoxic requiring 1 L of oxygen. A chest x-ray today was consistent with CHF. She received multiple liters of IV fluids given the sepsis and hypotension. We will hold off on further IV hydration at this time. We will not diurese her given she is still on vasopressors. We will obtain echocardiogram in the morning and check a BNP. Continue supplemental oxygen and wean as tolerated. She may need to be diuresed at some point if she remains hypoxic. (5) History of DVT (deep vein thrombosis) Impression: Continue Xarelto. (6) Dementia Impression: She appears to be at her baseline. Discussed with family that she may not return to her baseline from just a few weeks or months ago given this hospitalization and infection. They understand as they have noticed in the past that she really declines after any urinary tract infection and she does not return to her previous baseline. Qualifiers: Dementia type: unspecified type Dementia behavioral disturbance: without behavioral disturbance Qualified Code(s): F03.90 - Unspecified dementia without behavioral disturbance
[2020-07-14 07:52] LABS: CALCIUM 8.3 mg/dL (8.5-10.3); MAGNESIUM 1.8 mg/dL (1.7-2.8); PHOSPHORUS 2.3 mg/dL (2.5-4.6)
[2020-07-14 08:17] LABS: BASOPHILS % (AUTO) 0.3 %; EOSINOPHILS # (AUTO) 0.4 10^3/uL (0.0-0.7); EOSINOPHILS % (AUTO) 3.5 %; HGB - HEMOGLOBIN 12.2 g/dL (12.0-16.0); LYMPHOCYTES # (AUTO) 1.1 10^3/uL (1.5-3.5); LYMPHOCYTES % (AUTO) 9.7 %; MEAN CORPUSCULAR HEMOGLOBIN 30.7 pg (27.0-31.0); MEAN CORPUSCULAR HGB CONC 32.2 g/dL (32.0-36.0); MEAN CORPUSCULAR VOLUME 95.5 fL (81.0-99.0); MEAN PLATELET VOLUME 11.6 fL (7.9-10.8); MONOCYTES # (AUTO) 0.8 10^3/uL (0.0-1.0); MONOCYTES % (AUTO) 6.5 %; NEUTROPHILS # (AUTO) 9.2 10^3/uL (1.5-6.6); NEUTROPHILS % (AUTO) 79.6 %; PLT - PLATELET COUNT 258 10^3/uL (130-450); RED BLOOD COUNT 3.97 10^6/uL (4.20-5.40); RED CELL DISTRIBUTION WIDTH 13.1 % (12.0-15.0); WHITE BLOOD COUNT 11.6 x10^3/uL (4.8-10.8)
--- NOTE | 2020-07-14 08:56 | XRAY Report ---
PROCEDURE: Chest 1 View X-Ray INDICATIONS: Cough. Hypoxia. TECHNIQUE: One view of the chest was acquired. COMPARISON: 07/10/2020, 07/09/2020 FINDINGS: Surgical changes and devices: A stable right-sided central line is seen, with the tip overlying the m id aspect of the superior vena cava. Lungs and pleura: Lung volumes are low. Mild blunting of the costophrenic angles can be seen. Interst itial prominence is seen throughout. No large pneumothorax can be seen on this semiupright study. Mediastinum: Mediastinal contours appear normal. Heart size is mildly to moderately enlarged. Bones and chest wall: No suspicious bony lesions. Age-appropriate degenerative changes are seen. There is a remote left distal clavicle fracture. Overlying soft tissues appear unremarkable. IMPRESSION: Low lung volumes with interstitial prominence, which may be related to pulmonary edema. Mild to moder ate cardiomegaly is seen. Please consider CHF. Blunting of the costophrenic angles is seen, which is attributed to small pleural effusions. Stable right-sided central line. Remote left distal clavicle fracture. Reviewed by: Bryan Harris MD on 07/14/2020 7:55 AM [place] Approved by: Bryan Harris MD on 07/14/2020 7:55 AM AKDT Station ID: [id number]
[2020-07-14] MEDS ORDERED: POTASSIUM PHOSPHATE 15 MMOL in SODIUM CHLORIDE 0.9% 250 ML IV ONE (09:06)
[2020-07-14] MEDS: DOCUSATE SODIUM 250 MG CAPSULE PO SCH (09:31)
[2020-07-14] MEDS: RIVAROXABAN 15 MG TABLET PO SCH (09:32)
[2020-07-14] MEDS: SERTRALINE 50 MG TABLET PO SCH (09:32)
[2020-07-14] MEDS: MEROPENEM 1 GM in SODIUM CHLORIDE 0.9% MINIBAG 100 ML IV SCH ×2 (09:35→22:13)
[2020-07-14] MEDS: SENNA 8.6 MG TABLET PO SCH (09:41)
[2020-07-14] MEDS: LACTOBACILLUS RHAMNOSUS GG CAPSULE PO SCH (09:41)
[2020-07-14] MEDS: MEMANTINE 5 MG TABLET PO SCH ×2 (10:03→21:21)
[2020-07-14] MEDS: ATORVASTATIN 40 MG TABLET PO SCH (21:21)
[2020-07-15] MEDS: SODIUM CHLORIDE FLUSH 0.9% 10 ML SYRINGE IVP SCH ×3 (04:43→18:51)
[2020-07-15 05:11] LABS: BASOPHILS % (AUTO) 0.4 %; EOSINOPHILS # (AUTO) 0.3 10^3/uL (0.0-0.7); EOSINOPHILS % (AUTO) 2.8 %; HGB - HEMOGLOBIN 12.2 g/dL (12.0-16.0); MEAN CORPUSCULAR HEMOGLOBIN 31.4 pg (27.0-31.0); MEAN CORPUSCULAR HGB CONC 32.8 g/dL (32.0-36.0); MEAN CORPUSCULAR VOLUME 95.6 fL (81.0-99.0); MEAN PLATELET VOLUME 11.4 fL (7.9-10.8); MONOCYTES # (AUTO) 0.8 10^3/uL (0.0-1.0); MONOCYTES % (AUTO) 7.6 %; NEUTROPHILS # (AUTO) 8.5 10^3/uL (1.5-6.6); NEUTROPHILS % (AUTO) 79.8 %; PLT - PLATELET COUNT 253 10^3/uL (130-450); RED BLOOD COUNT 3.89 10^6/uL (4.20-5.40); RED CELL DISTRIBUTION WIDTH 13.2 % (12.0-15.0); WHITE BLOOD COUNT 10.7 x10^3/uL (4.8-10.8)
[2020-07-15 05:17] LABS: CALCIUM 8.4 mg/dL (8.5-10.3); CREATININE 0.8 mg/dL (0.4-1.0)
[2020-07-15] MEDS: MIDODRINE 2.5 MG TABLET PO SCH ×3 (07:00→18:22)
[2020-07-15 08:20] LABS: ALBUMIN 2.4 g/dL (3.2-5.5); MAGNESIUM 2.1 mg/dL (1.7-2.8); PHOSPHORUS 2.7 mg/dL (2.5-4.6)
[2020-07-15] MEDS: MEMANTINE 5 MG TABLET PO SCH ×2 (08:34→21:23)
[2020-07-15] MEDS: SERTRALINE 50 MG TABLET PO SCH (08:35)
[2020-07-15] MEDS: LACTOBACILLUS RHAMNOSUS GG CAPSULE PO SCH (08:36)
[2020-07-15] MEDS: RIVAROXABAN 15 MG TABLET PO SCH (08:36)
[2020-07-15] MEDS: DOCUSATE SODIUM 250 MG CAPSULE PO SCH (08:37)
[2020-07-15] MEDS: SENNA 8.6 MG TABLET PO SCH (08:37)
[2020-07-15] MEDS: MEROPENEM 1 GM in SODIUM CHLORIDE 0.9% MINIBAG 100 ML IV SCH ×2 (10:06→22:05)
[2020-07-15] MEDS: SODIUM CHLORIDE FLUSH 0.9% 10 ML SYRINGE IVP PRN (10:40)
--- NOTE | 2020-07-15 10:41 | PROVIDER PROGRESS NOTE ---
Assessment/Plan - Problem List (1) Septic shock Assessment/Plan: She needed norepinephrine until last evening. She has been afebrile for more than 48 hours. Her white count appears to be improving from a sepsis standpoint. Her septic shock is secondary to the ESBL producing E. coli urinary tract infection, which greq out on culture. Blood cultures have been negative to date. Today is Day #7 of Meropenam Continue on meropenem IV. Will determine duration of treatment with a possible consult with [facility] at . Continue Midodrine, adjust dose upward for syst BP < 90. (2) Hypotension Assessment/Plan: She was requiring norepinephrine until yesterday evening. She was started on midodrine yesterday as well. She has not shown evidence of hypoperfusion as her lactic acid is normal and her renal function has remained excellent. This hypotension was believed to be secondary to her sepsis, but may be cardiac in origin, given the elevated troponins. She is not Addisonian, her a.m. cortisol was normal. Her low serum albumin of 2.4, and low serum oncotic pressure may be adding to the low blood pressure. Will discontinue the order for norepinephrine and try not to restart it, unless she does show evidence of hypoperfusion. We will continue midodrine adjusting dose to maintain systolic BP of 90mmHg, and will dose iot tid with meals, to achieve benefit when she is awake. We try to will hold off on further IV fluids given her lower extremity edema and she has evidence of CHF on chest x-ray. Will obtain Echocardiogram. Continue to monitor for evidence of hypoperfusion. Remain in ICU. No PT yet, until BP stable and she is more alert. (3) UTI due to extended-spectrum beta lactamase (ESBL) producing Escherichia coli Assessment/Plan: This is the source of her sepsis. She remains on meropenem IV. Will reach out to [facility] [place] and discuss with infectious disease regarding length of treatment as normally we would treat for 7 to 10 days but given her hypotension and slow response, she may need a longer treatment course in which she would need a PICC line and IV ertapenem on outpatient basis. (4) Hypoxia Assessment/Plan: She developed hypoxia yesterday, requiring 1 L of oxygen. A CXR yesterday was consistent with CHF. She had received multiple liters of IV fluids, to treat the sepsis and hypotension. Her iv IV hydration was stopped yesterday, after that CXR result. She was not given diuresis due to hypotension yesyterday. BNP today is 400. There is no prior BNP during this admission. Will trend BNP. Echocardiogram ordered and is still pending. Continue supplemental oxygen and wean as tolerated. She may need to be diuresed at some point if she remains hypoxic. Cannot use Nitropaste for pre-load reduction due to low BP. (5) Elevated troponin Assessment/Plan: She had an hs-troponin of 5 at admission which arlin to 43>> 35>> 16. This is consistent with ruling in for an NSTEMI, since the initial troponin more than doubled, it went up 8-fold. No EKG was done at this admission. An Echo is pending today. It was ordered to assess LV and RV function, given the prolonged hypotension. Will order an EKG for today, and compare with prior EKGs>>> The EKG shows early R/S transition (which is old), but new deep T wave inversions in V4-V6. Will resume aspirin, baby dose daily. Cannot use Nitropaste or B-bella due to hypotension. Continue statin as at home. (6) History of DVT (deep vein thrombosis) Assessment/Plan: She did have a PE with the DVT. 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 Continue Xarelto. Awaiting Echo findings this admission. (7) Advanced dementia Assessment/Plan: She appeared to be at her baseline; does not follow commands, needs to be fed and help with all ADLs, sleeps til 10 am, answers with one-word answers sometimes, probably recognizes family members. But normally she can ambulate and here, she has been in bed, not out of bed to a chair yet (due to hypotension and somnolence), therefore she is not at her baseline. The previous Hospitalist provider discussed with family that she may not return to her baseline of a few weeks or months ago, due to this hospitalization and infection in an elderly patient with advanced dementia. They understand as they have noticed in the past that she really declines after any urinary tract infection and she does not return to her previous baseline. - Current Meds Current Meds: Current Medications Generic Name Dose Route Start Last Admin Trade Name Freq PRN Reason Stop Dose Admin Acetaminophen 650 mg 07/09/20 15:00 07/11/20 18:59 Tylenol PO 650 mg Q4HR PRN Administration Pain 1 to 4 Atorvastatin Calcium 40 mg 07/09/20 21:00 07/14/20 21:21 Lipitor PO 40 mg QPM ELISE Administration Docusate Sodium 250 - 500 mg 07/11/20 09:00 07/15/20 08:37 Colace 250mg Capsule PO 250 mg DAILY ELISE Administration Meropenem 1 gm/ Sodium 100 mls @ 200 mls/hr 07/13/20 09:06 07/15/20 10:06 Chloride IV 200 mls/hr Q12H ELISE Administration Lactobacillus Rhamnosus 1 cap 07/11/20 13:00 07/15/20 08:36 Culturelle PO 1 cap DAILY ELISE Administration Memantine 10 mg 07/09/20 21:00 07/15/20 08:34 Namenda PO 10 mg BID ELISE Administration Midodrine 5 mg 07/13/20 14:00 07/15/20 07:00 PO 5 mg TID ELISE Administration Rivaroxaban 15 mg 07/10/20 09:00 07/15/20 08:36 Xarelto PO 15 mg DAILY ELISE Administration Senna 8.6 - 17.2 mg 07/12/20 09:00 07/15/20 08:37 Senokot PO 8.6 mg DAILY ELISE Administration Sertraline HCl 100 mg 07/10/20 09:00 07/15/20 08:35 Zoloft PO 100 mg DAILY ELISE Administration Sodium Chloride 10 ml 07/09/20 17:00 07/15/20 09:15 Normal Saline Flush 0.9% IVP 10 ml 0100,0900,1700 ELISE Administration - Lab Result Fish Bone Diagrams: 07/15/20 04:40 07/15/20 04:40 - EKG Results EKG Interpreted Independently: Yes EKG Findings: NSR, rate 63, early R/S transition, deep symmetrical T wave inversions anteriorly. Since - Additional Planning My Orders: My Active Orders 07/15/20 10:13 Chest 1 View X-Ray [XR] Stat 07/15/20 10:14 RT [Oxygen Therapy] [RC] .PRN Subjective - Subjective Patient Reports: Other (Sleeping) Objective Vital Signs: Vital Signs - 24 hr 07/14/20 07/14/20 07/14/20 11:00 12:00 13:00 Temperature 37.0 C Heart Rate [ 63 63 60 Monitoring electrodes] Respiratory 23 25 H 22 Rate Blood Pressure [Left Brachial artery] Blood Pressure 102/49 L 94/43 L 99/53 L [Right Brachial artery] O2 Saturation 97 95 95 07/14/20 07/14/20 07/14/20 14:00 15:46 16:00 Temperature Heart Rate [ 61 62 62 Monitoring electrodes] Respiratory 20 20 20 Rate Blood Pressure [Left Brachial artery] Blood Pressure 100/52 L 90/46 L 93/44 L [Right Brachial artery] O2 Saturation 95 94 95 07/14/20 07/14/20 07/14/20 17:00 17:30 17:53 Temperature Heart Rate [ 58 L Monitoring electrodes] Respiratory 22 Rate Blood Pressure [Left Brachial artery] Blood Pressure 101/56 L 104/54 L 106/53 L [Right Brachial artery] O2 Saturation 96 07/14/20 07/14/20 07/14/20 18:00 18:17 18:28 Temperature Heart Rate [ 62 61 Monitoring electrodes] Respiratory 28 H 16 Rate Blood Pressure 97/50 L [Left Brachial artery] Blood Pressure 100/54 L 89/56 L [Right Brachial artery] O2 Saturation 93 94 07/14/20 07/14/20 07/14/20 19:00 20:00 21:00 Temperature 37.1 C Heart Rate [ 64 58 L 59 L Monitoring electrodes] Respiratory 12 32 H 27 H Rate Blood Pressure [Left Brachial artery] Blood Pressure 91/55 L 97/52 L 96/49 L [Right Brachial artery] O2 Saturation 93 93 93 07/14/20 07/14/20 07/15/20 22:00 23:00 00:00 Temperature 37.0 C Heart Rate [ 60 58 L 59 L Monitoring electrodes] Respiratory 23 30 H 23 Rate Blood Pressure [Left Brachial artery] Blood Pressure 99/54 L 107/50 L 104/52 L [Right Brachial artery] O2 Saturation 91 L 91 L 93 07/15/20 07/15/20 07/15/20 01:00 02:00 03:00 Temperature Heart Rate [ 61 63 66 Monitoring electrodes] Respiratory 12 15 21 Rate Blood Pressure 98/56 L [Left Brachial artery] Blood Pressure 105/55 L 98/59 L [Right Brachial artery] O2 Saturation 92 90 L 90 L 07/15/20 07/15/20 07/15/20 04:00 05:00 06:00 Temperature 36.9 C Heart Rate [ 60 65 63 Monitoring electrodes] Respiratory 18 22 22 Rate Blood Pressure [Left Brachial artery] Blood Pressure 107/55 L 105/52 L 95/52 L [Right Brachial artery] O2 Saturation 92 90 L 89 L 07/15/20 07/15/20 07/15/20 07:00 08:00 08:23 Temperature 36.3 C L Heart Rate [ 63 61 Monitoring electrodes] Respiratory 22 26 H 23 Rate Blood Pressure [Left Brachial artery] Blood Pressure 103/52 L 100/47 L 101/52 L [Right Brachial artery] O2 Saturation 90 L 92 95 07/15/20 07/15/20 09:00 10:00 Temperature Heart Rate [ 62 57 L Monitoring electrodes] Respiratory 22 17 Rate Blood Pressure [Left Brachial artery] Blood Pressure 115/93 H 84/44 L [Right Brachial artery] O2 Saturation 89 L 95 Oxygen O2 Source [With Activity] Room air O2 Source [Without Activity] Room air O2 Source Nasal cannula I&O (Last 24 Hrs): Intake and Output Totals x24h 07/13/20 07/14/20 07/15/20 23:59 23:59 23:59 Intake Total 3388.021 2877.907 207.962 Output Total 2100 1300 1600 Balance 8120.595 5416.907 -1392.038 General: Other (Sleeping, appears comfortable, does not awaken to name or being touched.) HEENT: Mucous membr. moist/pink Neck: Supple Neuro: Non Focal, Other (Somnolent, does not awaken to name or being touched.) Cardiovascular: Regular rate Respiratory: No respiratory distress, Other (Wearing O2 n.c.) Abdomen: Soft Extremities: Other (Trace edema of legs) - Results Results: Laboratory Results WBC 10.7 x10^3/uL (4.8-10.8) 07/15/20 04:40 RBC 3.89 10^6/uL (4.20-5.40) L 07/15/20 04:40 Hgb 12.2 g/dL (12.0-16.0) 07/15/20 04:40 Hct 37.2 % (37.0-47.0) 07/15/20 04:40 MCV 95.6 fL (81.0-99.0) 07/15/20 04:40 MCH 31.4 pg (27.0-31.0) H 07/15/20 04:40 MCHC 32.8 g/dL (32.0-36.0) 07/15/20 04:40 RDW 13.2 % (12.0-15.0) 07/15/20 04:40 Plt Count 253 10^3/uL (130-450) 07/15/20 04:40 MPV 11.4 fL (7.9-10.8) H 07/15/20 04:40 Neut # (Auto) 8.5 10^3/uL (1.5-6.6) H 07/15/20 04:40 Lymph # (Auto) 1.0 10^3/uL (1.5-3.5) L 07/15/20 04:40 [place] # (Auto) 0.8 10^3/uL (0.0-1.0) 07/15/20 04:40 Eos # (Auto) 0.3 10^3/uL (0.0-0.7) 07/15/20 04:40 Baso # (Auto) 0.0 10^3/uL (0.0-0.1) 07/15/20 04:40 Absolute Nucleated RBC 0.00 x10^3/uL 07/15/20 04:40 Nucleated RBC % 0.0 /100WBC 07/15/20 04:40 VBG pH 7.404 (7.31-7.41) 07/12/20 04:45 Ionized Calcium 1.15 mmol/L (1.15-1.33) 07/12/20 04:45 Sodium 138 mmol/L (135-145) 07/15/20 04:40 Potassium 3.8 mmol/L (3.5-5.0) 07/15/20 04:40 Chloride 105 mmol/L (101-111) 07/15/20 04:40 Carbon Dioxide 26 mmol/L (21-32) 07/15/20 04:40 Anion Gap 7.0 (6-13) 07/15/20 04:40 BUN 14 mg/dL (6-20) 07/15/20 04:40 Creatinine 0.8 mg/dL (0.4-1.0) 07/15/20 04:40 Estimated GFR (MDRD) 69 (>89) L 07/15/20 04:40 Glucose 93 mg/dL (70-100) 07/15/20 04:40 POC Whole Bld Glucose 126 mg/dL (70 - 100) H 07/11/20 20:56 Lactic Acid 1.4 mmol/L (0.5-2.2) 07/13/20 12:25 Calcium 8.4 mg/dL (8.5-10.3) L 07/15/20 04:40 Phosphorus 2.7 mg/dL (2.5-4.6) 07/15/20 04:40 Magnesium 2.1 mg/dL (1.7-2.8) 07/15/20 04:40 Total Bilirubin 0.4 mg/dL (0.2-1.0) 07/13/20 12:25 Direct Bilirubin < 0.1 mg/dL (0.1-0.5) L 07/13/20 12:25 AST 82 IU/L (10-42) H 07/13/20 12:25 ALT 99 IU/L (10-60) H 07/13/20 12:25 Alkaline Phosphatase 47 IU/L (42-121) 07/13/20 12:25 Troponin I High Sens 16.8 ng/L (2.3-14.8) H* 07/13/20 12:25 B-Natriuretic Peptide 428 pg/mL (5-100) H 07/15/20 04:40 Total Protein 4.9 g/dL (6.7-8.2) L 07/13/20 12:25 Albumin 2.4 g/dL (3.2-5.5) L 07/15/20 04:40 Globulin 2.6 g/dL (2.1-4.2) 07/13/20 12:25 Albumin/Globulin Ratio 1.3 (1.0-2.2) 07/09/20 11:30 TSH 2.95 uIU/mL (0.34-5.60) 07/11/20 04:20 Cortisol AM Sample 17.6 ug/dL 07/13/20 08:16 Urine Color YELLOW 07/09/20 13:45 Urine Clarity CLOUDY (CLEAR) 07/09/20 13:45 Urine pH 7.0 PH (5.0-7.5) 07/09/20 13:45 Ur Specific [place] 1.020 (1.002-1.030) 07/09/20 13:45 Urine Protein 30 mg/dL (NEGATIVE) H 07/09/20 13:45 Urine Glucose (UA) NEGATIVE mg/dL (NEGATIVE) 07/09/20 13:45 Urine Ketones NEGATIVE mg/dL (NEGATIVE) 07/09/20 13:45 Urine Occult Blood MODERATE (NEGATIVE) H 07/09/20 13:45 Urine Nitrite NEGATIVE (NEGATIVE) 07/09/20 13:45 Urine Bilirubin NEGATIVE (NEGATIVE) 07/09/20 13:45 Urine Urobilinogen 1 (NORMAL) E.U./dL (NORMAL) 07/09/20 13:45 Ur Leukocyte Esterase MODERATE (NEGATIVE) H 07/09/20 13:45 Urine RBC 0-5 /HPF (0-5) 07/09/20 13:45 Urine WBC >25 /HPF (0-5) H 07/09/20 13:45 Urine WBC Clumps PRESENT 07/09/20 13:45 Ur Squamous Epith Cells FEW Squamous (<= Few) 07/09/20 13:45 Urine Bacteria Many /HPF (None Seen) H 07/09/20 13:45 Ur Microscopic Review INDICATED 07/09/20 13:45 Urine Culture Comments INDICATED 07/09/20 13:45 Nasal Screen MRSA (PCR) NEGATIVE (NEGATIVE) 07/09/20 16:05 Coronavirus (PCR) NEGATIVE 07/10/20 16:20 - Procedures Procedures: Procedures INTRODUCTION OF ANTI-INFLAMMATORY INTO JOINTS, PERC APPROACH (03/30/16) INTRODUCTION OF LOCAL ANESTHETIC INTO JOINTS, PERC APPROACH (03/30/16) Sepsis Event Note (H) - Evaluation Current Stage of Sepsis: Septic shock Possible source of Sepsis: positive: Genitourinary - Sepsis Criteria Sepsis Criteria: Recorded Temperature greater than 38.3C or Less than 36C, Recorded Respiratory Rate greater than 20, SBP drop more than 40mHg, SBP less than 90 mmHg
--- NOTE | 2020-07-15 10:53 | XRAY Report ---
PROCEDURE: Chest 1 View X-Ray INDICATIONS: Eval for CHF vs pneumonia TECHNIQUE: One view of the chest was acquired. COMPARISON: 07/14/2020 FINDINGS: Surgical changes and devices: Right-sided central venous catheter tip is in SVC.. Lungs and pleura: There is suggestion of trace bilateral pleural effusion with blunting of bilateral costophrenic angles. Mild pulmonary vascular congestion is seen. Very mild residual pulmonary edema i s seen. Overall bilateral lung aeration has improved since previous study. There is no definite focal infiltrate. No gross pneumothorax. Mediastinum: Mediastinal contours appear normal. Heart size is enlarged. Bones and chest wall: No suspicious bony lesions. Overlying soft tissues appear unremarkable. IMPRESSION: Mild CHF changes with improved bilateral lung aeration since previous study. No gross pneumothorax. N o definite focal infiltrate. Reviewed by: Wesley Gan MD on 07/15/2020 10:52 AM PDT Approved by: Wesley Gan MD on 07/15/2020 10:52 AM PDT Station ID: [id number]
--- NOTE | 2020-07-15 14:29 | ADVANCE CARE PLANNING NOTE ---
Advance Care Planning - Planning Encounter Date: 07/15/20 Time: 13:00 Purpose: To give daughter Danielle and son Neno update on pt condition and ask if they have discussed DNR status with all 3 siblings. Parties in Attendance: I spoke to the daughter Danielle and son Neno at pt's bedside and her RN, Charu Mendoza was in the room the entire time. Decisional Capacity of the Patient: Patient has advanced dementia, is not communicative except for single yes's or no's that do not actually respond to her wishes, therefore she has no decisional capacity. - Diagnosis for Encounter (1) Septic shock Summary: I explained that the infection appears to have caused the shock, that she is on Day #7 of antibiotics and that I still plan to discuss the case with ID, jessica duran duration of antibiotics. (2) Hypotension Summary: Levophed iv drip was needed for mseveral days and has been weaned to off as Midodrine has been started. The daughter shared with me that the pt has had low BP all herlife, had several fainting spells when standing when she was young and 2 episodes as an adult. The pt's BP is measured by the caregivers daily and Danielle read me some of the vital signs: she runs as low as 88 systolic to 115 systolic. She has never been prescribed compression stockings to manage low BP. (3) UTI due to extended-spectrum beta lactamase (ESBL) producing Escherichia coli Summary: She is on Meropenem. The white blood count is improving therefore she is likely responding. (4) Hypoxia Summary: She is requiring 1 L supplemental O2, has CHF on chest x-ray yesterday and today. She is not received diuretics because of her low blood pressure but IV fluids have been decreased yesterday. (5) Elevated troponin Summary: The CXR yesterday and today show CHF. I explained this is likely from all the iv fluids she has received, and that CHF can be systolic or diastolic and I explained what each of these mean. I also explained that the troponin values went up at admission, in the range of a small myocardial infarction. The son, Neno, said that the previous Hospitalist did not inform them of these diagnoses of heart failure and heart attack, and they "don't know who to believe". (6) History of DVT (deep vein thrombosis) Summary: She is on stable anticoagulant. (7) Advanced dementia Summary: The son and daughter both describe that she had a rapid decline 15 years ago when she became delirious during the decline from brain bleed of her . Then over the 10 years she has had a slow steady worsening in her dementia. At one point someone said there was possibly an old stroke. I reviewed this current head CT at admission and indeed there is encephalomalacia in a spot that would be consistent with an old stroke. I reported this to them. - Encounter Subjective/Patient's Story: This is been reviewed in detail at the prior ACP. Objective/Medical Story: Since admission she has been somnolent except for 2 days at mid-hospitalization of being very awake at midday. She does awaken to eat her meals but needs to be fed. All her ADLs have to be done by caregivers. 2 caregivers are hired and Edna Suresh helps her Tuesday through Tuesday, and the patient is able to ambulate with no durable medical equipment, just a gait belt for safety. On the weekend there is a different and new caregiver, and that one mostly just gets her up to sit in a wheelchair when the pt is awake. Goals of Care: Both Danielle and Neno state they want everything done for their mother. They did not discuss today, what they think that her quality of life is or why they want her kept alive with her advanced dementia. The nurse Charu had been told in a verbal pass-down, that the daughter asked that Palliative Care or Hospice Care "never been mentioned". I therefore did not ask if a Palliative Care provider could discuss with them their goals related to this patient's current clinical status and her underlying dementia, and plan going forward. I asked if they have discussed a potential DNR status with the patient's third child, their brother, as recommended by Dr Mancini, who did an Advanced Care Plan with them several days ago, and they said that "no, they thought they would talk to their brother about DNR after her discharge from this hospitalization because the impression we got from Dr Mancini was that we did not need a decision right away". The son Neno, stated that he thought the patient could go home as soon as her blood pressure was better, after speaking with Dr Mancini. I reiterated that her poor low blood pressure is being caused by a significant problem called sepsis and possibly heart weakening, and we reviewed all the above diagnoses once again. I brought up a potential scenario and asked that if she has a worsening course, what would they want if she has a cardiac arrest during this hospitalization, as this would require an earlier decision from all 3 children. Their response was that they could not believe what was being told to them today about the CHF and elevated troponins consistent with an NSTEMI. I again reiterated a request that they bring their brother into a discussion soon about this patient's CODE STATUS and they both nodded their heads in agreement. Plan: There will be no changes made in the current plan for aggressive medical management and FULL CODE STATUS. Code Status: Attempt Resuscitation Time spent on advance care plannin min
[2020-07-15] MEDS: ASPIRIN EC 81 MG TABLET PO SCH (14:34)
[2020-07-15] MEDS: ATORVASTATIN 40 MG TABLET PO SCH (21:23)
[2020-07-16 04:39] LABS: BASOPHILS % (AUTO) 0.5 %; EOSINOPHILS # (AUTO) 0.3 10^3/uL (0.0-0.7); EOSINOPHILS % (AUTO) 3.7 %; HGB - HEMOGLOBIN 11.7 g/dL (12.0-16.0); LYMPHOCYTES % (AUTO) 11.6 %; MEAN CORPUSCULAR HEMOGLOBIN 31.3 pg (27.0-31.0); MEAN CORPUSCULAR HGB CONC 32.7 g/dL (32.0-36.0); MEAN CORPUSCULAR VOLUME 95.7 fL (81.0-99.0); MEAN PLATELET VOLUME 10.8 fL (7.9-10.8); MONOCYTES # (AUTO) 0.9 10^3/uL (0.0-1.0); MONOCYTES % (AUTO) 10.5 %; NEUTROPHILS # (AUTO) 6.5 10^3/uL (1.5-6.6); NEUTROPHILS % (AUTO) 73.2 %; PLT - PLATELET COUNT 294 10^3/uL (130-450); RED BLOOD COUNT 3.74 10^6/uL (4.20-5.40); RED CELL DISTRIBUTION WIDTH 13.3 % (12.0-15.0); WHITE BLOOD COUNT 8.9 x10^3/uL (4.8-10.8)
[2020-07-16 04:49] LABS: CALCIUM 8.3 mg/dL (8.5-10.3); CREATININE 0.8 mg/dL (0.4-1.0)
[2020-07-16] MEDS: SODIUM CHLORIDE FLUSH 0.9% 10 ML SYRINGE IVP SCH ×3 (06:17→18:18)
[2020-07-16 07:39] LABS: ALBUMIN 2.3 g/dL (3.2-5.5); MAGNESIUM 2.2 mg/dL (1.7-2.8); PHOSPHORUS 3.2 mg/dL (2.5-4.6)
[2020-07-16] MEDS: MEROPENEM 1 GM in SODIUM CHLORIDE 0.9% MINIBAG 100 ML IV SCH ×2 (09:47→22:27)
[2020-07-16] MEDS ORDERED: NS W/20 MEQ KCL 1,000 ML IV SCH (10:00)
[2020-07-16] MEDS: MIDODRINE 2.5 MG TABLET PO SCH ×3 (10:02→18:16)
[2020-07-16] MEDS: RIVAROXABAN 15 MG TABLET PO SCH (10:03)
[2020-07-16] MEDS: ASPIRIN EC 81 MG TABLET PO SCH (10:04)
[2020-07-16] MEDS: MEMANTINE 5 MG TABLET PO SCH ×2 (10:05→21:22)
[2020-07-16] MEDS: DOCUSATE SODIUM 250 MG CAPSULE PO SCH (10:06)
[2020-07-16] MEDS: SERTRALINE 50 MG TABLET PO SCH (10:06)
[2020-07-16] MEDS: FLUDROCORTISONE 0.1 MG TABLET PO SCH (10:06)
[2020-07-16] MEDS: SODIUM CHLORIDE FLUSH 0.9% 10 ML SYRINGE IVP PRN (10:22)
[2020-07-16] MEDS: SENNA 8.6 MG TABLET PO SCH (10:36)
[2020-07-16] MEDS: LACTOBACILLUS RHAMNOSUS GG CAPSULE PO SCH (10:41)
--- NOTE | 2020-07-16 15:50 | PROVIDER PROGRESS NOTE ---
Assessment/Plan - Problem List (1) Hypotension Assessment/Plan: Blood pressure still drops into the mid 80s despite maximum dose of Midodrin for 24 hours now, given with meals. Will add Florinef 0.1 mg daily, adjust dose up if needed for continued improvement in her low blood pressure. We will resume low-dose of IV fluids today for low blood pressure. Will plan that at discharge, the caregivers will be alerted when blood pressure drops below 90 systolic, which is roughly equal to the patient having a mean blood pressure of 60, which is the desired number shown on ICU monitor. This plan was discussed with the son Neno at bedside, the caregiver Edna at bedside and Danielle was on the phone. (2) UTI due to extended-spectrum beta lactamase (ESBL) producing Escherichia coli Assessment/Plan: Today is day #8 of antibiotics and she is on meropenem which the ESBL E. coli is sensitive to. I have put in a call to discuss with infectious disease at [facility], I am waiting their call back to discuss duration of treatment. (3) Acute non-ST elevation myocardial infarction (NSTEMI) Assessment/Plan: She had an hs-troponin of 5 at admission which arlin to 43>> 35>> 16. This is consistent with ruling in for an NSTEMI, since the initial troponin more than doubled, it went up 8-fold. No EKG was done at this admission. The EKG done yesterday showed early R/S transition (which is old), but new deep T wave inversions in V4-V6. An Echo was done yesterday late afternoon and shows LVEF of 50% (decreased since Echo done 2016, LVEF was 60%). She was started yesterday on aspirin, baby dose daily. Cannot use Nitropaste or B-bella due to hypotension. Continuing statin as at home. She is not a candidate for intervention, due to advanced dementia. The above information was reviewed today with the son Neno at bedside, caregiver Edna at bedside and Danielle was listening and by phone. (4) Acute systolic heart failure Assessment/Plan: The echo was done yesterday afternoon. This shows a newly depressed LVEF of 50% (in 2016 it was 60%). She had CHF by chest x-ray 2 days ago and yesterday. Today she has less of a cough and is able to tolerate being off of supplemental oxygen. No Lasix was given, her IV fluids were simply decreased, because of very low blood pressures. The plan was that the fluids would equilibrate and this appears to have been accomplished. I discussed this finding of the echo with the son Neno at bedside and caregiver Edna at bedside and Danielle was on the phone. I explained that any specific treatment for her lower LVEF would also drop her blood pressure therefore weighing the risks and benefits, the only thing that can be used is treatment of her ME (see above), cannot easily use nitrates, B-bella, diuretics. (5) History of DVT (deep vein thrombosis) Assessment/Plan: She remains on her home dose of Xarelto. Daughter questioned whether aspirin can be used with Xarelto and I explained the reason for dosing baby aspirin, because of the acute ME (see above) with Xarelto. (6) Advanced dementia Assessment/Plan: The patient's caregiver for 4 years, Edna, is at bedside today and was able to describe in detail what the patient's activity is. One thing she remarked upon is that whenever there is an infection and the patient is on antibiotics, she is much more sleepy. I asked Neno at bedside and Danielle on the phone if they have discussed the patient's condition with their brother. Danielle has spoken to him today. They have no update for me regarding any changes in CODE STATUS or wishes regarding medical management. She continues to have FULL CODE STATUS and desire for full aggressive medical management. Yesterday, a message was given to me by the pt's RN, that the topic of "palliative care or hospice care should not ever be mentioned". I therefore have not ordered palliative care consult or hospice care consult. I spoke to the about that request from the family. Today I received a message from the patient's RN that the son Neno is still verbalizing great dissatisfaction; he is unhappy that ID has not been contacted to have a plan about antibiotic duration, unhappy that the Echo results were not reported to him yesterday, unhappy that the "blood pressure medicines had to be changed today". With these family concerns, I reached out to the in-house Patient Advocate, Aruna. She and her coworker met with the son, and the head nurse Mahendra was involved. The son has requested a second opinion. This will be requested of the chief of medicine, Dr. Arriaga, who is working in the building today in the ER. The request was verbally given to Dr. Arriaga, who thinks he may be able to do a consult but today the ER is very busy. If Dr. Arriaga will not be able to see this patient for a "second opinion consult", then we will ask the evening Hospitalist to do a full consultation, as the son requests. This was communicated to Mahendra who will inform the Patient Advocate office. (7) Septic shock Assessment/Plan: Resolved. WBC has resolved, decreasing the past 2 days. No bacteria grew in blood cx. It appears that her hypotension is chronic and preceded the sepsis. (8) Hypoxia Assessment/Plan: Resolved, she is not desaturating on room air today. - Current Meds Current Meds: Current Medications Generic Name Dose Route Start Last Admin Trade Name Freq PRN Reason Stop Dose Admin Acetaminophen 650 mg 07/09/20 15:00 07/11/20 18:59 Tylenol PO 650 mg Q4HR PRN Administration Pain 1 to 4 Aspirin 81 mg 07/15/20 12:00 07/16/20 10:04 Ecotrin PO 81 mg DAILY ELISE Administration Atorvastatin Calcium 40 mg 07/09/20 21:00 07/15/20 21:23 Lipitor PO 40 mg QPM ELISE Administration Docusate Sodium 250 - 500 mg 07/11/20 09:00 07/16/20 10:06 Colace 250mg Capsule PO Not Given DAILY ELISE Fludrocortisone Acetate 0.1 mg 07/16/20 09:00 07/16/20 10:06 Florinef PO 0.1 mg DAILYWM ELISE Administration Meropenem 1 gm/ Sodium 100 mls @ 200 mls/hr 07/13/20 09:06 07/16/20 10:20 Chloride IV Infused Q12H ELISE Infusion Potassium Chloride/Sodium Chloride 1,000 mls @ 40 mls/hr 07/16/20 10:00 07/16/20 15:06 Normal Saline 0.9% W/20 Meq Kcl IV 40 mls/hr .Q25H ELISE Infusion Lactobacillus Rhamnosus 1 cap 07/11/20 13:00 07/16/20 10:41 Culturelle PO 1 cap DAILY ELISE Administration Memantine 10 mg 07/09/20 21:00 07/16/20 10:05 Namenda PO 10 mg BID ELISE Administration Midodrine 10 mg 07/15/20 12:00 07/16/20 14:21 PO 10 mg TIDWM ELISE Administration Rivaroxaban 15 mg 07/10/20 09:00 07/16/20 10:03 Xarelto PO 15 mg DAILY ELISE Administration Senna 8.6 - 17.2 mg 07/12/20 09:00 07/16/20 10:36 Senokot PO Not Given DAILY ELISE Sertraline HCl 100 mg 07/10/20 09:00 07/16/20 10:06 Zoloft PO 100 mg DAILY ELISE Administration Sodium Chloride 10 ml 07/09/20 17:00 07/16/20 09:55 Normal Saline Flush 0.9% IVP 30 ml 0100,0900,1700 ELISE Administration Sodium Chloride 10 ml 07/09/20 15:00 07/16/20 10:22 Normal Saline Flush 0.9% IVP 10 ml PRN PRN Administration NEEDED PER PROVIDER ORDERS - Lab Result Fish Bone Diagrams: 07/16/20 04:25 07/16/20 04:25 - Additional Planning My Orders: My Active Orders 07/16/20 09:00 Fludrocortisone [Florinef] 0.1 mg PO DAILYWM 07/16/20 09:28 Miscellaenous Nursing Order [RC] DAILY 07/16/20 10:00 Ns W/20 Meq KCl [Normal Saline 0.9% W/20 Meq KCl] 1,000 ml IV 40 mls/hr 07/16/20 12:54 Consult [Consult Listing] .once 07/17/20 05:00 BNP - B-NATRIURETIC PEPTIDE [IAI] DAILYLAB Subjective - Subjective Patient Reports: Other (Sitting up in a chair, smiled at me today, then dozed off to sleep.) Objective Vital Signs: Vital Signs - 24 hr 07/15/20 07/15/20 07/15/20 16:00 17:00 18:00 Temperature Heart Rate Heart Rate [ 60 59 L 97 Monitoring electrodes] Respiratory 21 22 24 Rate Blood Pressure 100/45 L 95/46 L 98/48 L [Right Brachial artery] O2 Saturation 95 94 95 07/15/20 07/15/20 07/15/20 19:00 20:00 21:00 Temperature 36.7 C Heart Rate Heart Rate [ 69 71 62 Monitoring electrodes] Respiratory 26 H 19 14 Rate Blood Pressure 106/41 L 104/46 L 101/83 H [Right Brachial artery] O2 Saturation 93 95 97 07/15/20 07/15/20 07/16/20 22:00 23:00 00:00 Temperature 36.8 C Heart Rate Heart Rate [ 58 L 57 L 60 Monitoring electrodes] Respiratory 24 20 20 Rate Blood Pressure 109/54 L 102/48 L 97/52 L [Right Brachial artery] O2 Saturation 98 93 94 07/16/20 07/16/20 07/16/20 01:00 02:00 02:10 Temperature Heart Rate Heart Rate [ 56 L 53 L Monitoring electrodes] Respiratory 17 17 Rate Blood Pressure 84/39 L 89/41 L 97/61 [Right Brachial artery] O2 Saturation 94 93 07/16/20 07/16/20 07/16/20 03:00 04:00 05:00 Temperature 36.4 C L Heart Rate Heart Rate [ 55 L 56 L 55 L Monitoring electrodes] Respiratory 17 21 20 Rate Blood Pressure 101/46 L 98/49 L 98/53 L [Right Brachial artery] O2 Saturation 95 92 95 07/16/20 07/16/20 07/16/20 06:00 06:54 08:00 Temperature Heart Rate Heart Rate [ 58 L 57 L 58 L Monitoring electrodes] Respiratory 25 H 27 H 16 Rate Blood Pressure 101/52 L 91/55 L 87/47 L [Right Brachial artery] O2 Saturation 95 95 94 07/16/20 07/16/20 07/16/20 09:00 10:00 11:00 Temperature 36.8 C Heart Rate Heart Rate [ 55 L 58 L 60 Monitoring electrodes] Respiratory 15 17 16 Rate Blood Pressure 87/47 L 89/48 L 94/50 L [Right Brachial artery] O2 Saturation 95 94 92 07/16/20 07/16/20 07/16/20 12:00 13:00 13:49 Temperature 37.0 C Heart Rate Heart Rate [ 57 L 51 L 57 L Monitoring electrodes] Respiratory 13 16 Rate Blood Pressure 98/81 H 91/43 L 91/44 L [Right Brachial artery] O2 Saturation 92 92 07/16/20 07/16/20 07/16/20 14:00 15:00 15:05 Temperature 37 C Heart Rate 55 L Heart Rate [ 60 65 Monitoring electrodes] Respiratory 12 24 24 Rate Blood Pressure 100/62 87/54 L [Right Brachial artery] O2 Saturation 95 95 95 Oxygen O2 Source [With Activity] Room air O2 Source [Without Activity] Room air O2 Source Room air I&O (Last 24 Hrs): Intake and Output Totals x24h 07/14/20 07/15/20 07/16/20 23:59 23:59 23:59 Intake Total 2877.907 1017.962 814.667 Output Total 1300 2750 1150 Balance 1577.907 -1732.038 -335.333 General: Other (Less somnolent than yesterday.) HEENT: Mucous membr. moist/pink Neck: Supple Neuro: Other (Normally communicative, lethargic, moves all extremities, able to swallow and eat normally.) Cardiovascular: Regular rate, No murmurs Respiratory: No respiratory distress, Breath sounds nml Abdomen: Soft Extremities: No edema - Results Results: Laboratory Results WBC 8.9 x10^3/uL (4.8-10.8) 07/16/20 04:25 RBC 3.74 10^6/uL (4.20-5.40) L 07/16/20 04:25 Hgb 11.7 g/dL (12.0-16.0) L 07/16/20 04:25 Hct 35.8 % (37.0-47.0) L 07/16/20 04:25 MCV 95.7 fL (81.0-99.0) 07/16/20 04:25 MCH 31.3 pg (27.0-31.0) H 07/16/20 04:25 MCHC 32.7 g/dL (32.0-36.0) 07/16/20 04:25 RDW 13.3 % (12.0-15.0) 07/16/20 04:25 Plt Count 294 10^3/uL (130-450) 07/16/20 04:25 MPV 10.8 fL (7.9-10.8) 07/16/20 04:25 Neut # (Auto) 6.5 10^3/uL (1.5-6.6) 07/16/20 04:25 Lymph # (Auto) 1.0 10^3/uL (1.5-3.5) L 07/16/20 04:25 [place] # (Auto) 0.9 10^3/uL (0.0-1.0) 07/16/20 04:25 Eos # (Auto) 0.3 10^3/uL (0.0-0.7) 07/16/20 04:25 Baso # (Auto) 0.0 10^3/uL (0.0-0.1) 07/16/20 04:25 Absolute Nucleated RBC 0.00 x10^3/uL 07/16/20 04:25 Nucleated RBC % 0.0 /100WBC 07/16/20 04:25 VBG pH 7.404 (7.31-7.41) 07/12/20 04:45 Ionized Calcium 1.15 mmol/L (1.15-1.33) 07/12/20 04:45 Sodium 138 mmol/L (135-145) 07/16/20 04:25 Potassium 4.0 mmol/L (3.5-5.0) 07/16/20 04:25 Chloride 104 mmol/L (101-111) 07/16/20 04:25 Carbon Dioxide 21 mmol/L (21-32) 07/16/20 04:25 Anion Gap 13.0 (6-13) 07/16/20 04:25 BUN 19 mg/dL (6-20) 07/16/20 04:25 Creatinine 0.8 mg/dL (0.4-1.0) 07/16/20 04:25 Estimated GFR (MDRD) 69 (>89) L 07/16/20 04:25 Glucose 94 mg/dL (70-100) 07/16/20 04:25 POC Whole Bld Glucose 126 mg/dL (70 - 100) H 07/11/20 20:56 Lactic Acid 1.4 mmol/L (0.5-2.2) 07/13/20 12:25 Calcium 8.3 mg/dL (8.5-10.3) L 07/16/20 04:25 Phosphorus 3.2 mg/dL (2.5-4.6) 07/16/20 04:25 Magnesium 2.2 mg/dL (1.7-2.8) 07/16/20 04:25 Total Bilirubin 0.4 mg/dL (0.2-1.0) 07/13/20 12:25 Direct Bilirubin < 0.1 mg/dL (0.1-0.5) L 07/13/20 12:25 AST 82 IU/L (10-42) H 07/13/20 12:25 ALT 99 IU/L (10-60) H 07/13/20 12:25 Alkaline Phosphatase 47 IU/L (42-121) 07/13/20 12:25 Troponin I High Sens 16.8 ng/L (2.3-14.8) H* 07/13/20 12:25 B-Natriuretic Peptide 375 pg/mL (5-100) H 07/16/20 04:25 Total Protein 4.9 g/dL (6.7-8.2) L 07/13/20 12:25 Albumin 2.3 g/dL (3.2-5.5) L 07/16/20 04:25 Globulin 2.6 g/dL (2.1-4.2) 07/13/20 12:25 Albumin/Globulin Ratio 1.3 (1.0-2.2) 07/09/20 11:30 TSH 2.95 uIU/mL (0.34-5.60) 07/11/20 04:20 Cortisol AM Sample 17.6 ug/dL 07/13/20 08:16 Urine Color YELLOW 07/09/20 13:45 Urine Clarity CLOUDY (CLEAR) 07/09/20 13:45 Urine pH 7.0 PH (5.0-7.5) 07/09/20 13:45 Ur Specific [place] 1.020 (1.002-1.030) 07/09/20 13:45 Urine Protein 30 mg/dL (NEGATIVE) H 07/09/20 13:45 Urine Glucose (UA) NEGATIVE mg/dL (NEGATIVE) 07/09/20 13:45 Urine Ketones NEGATIVE mg/dL (NEGATIVE) 07/09/20 13:45 Urine Occult Blood MODERATE (NEGATIVE) H 07/09/20 13:45 Urine Nitrite NEGATIVE (NEGATIVE) 07/09/20 13:45 Urine Bilirubin NEGATIVE (NEGATIVE) 07/09/20 13:45 Urine Urobilinogen 1 (NORMAL) E.U./dL (NORMAL) 07/09/20 13:45 Ur Leukocyte Esterase MODERATE (NEGATIVE) H 07/09/20 13:45 Urine RBC 0-5 /HPF (0-5) 07/09/20 13:45 Urine WBC >25 /HPF (0-5) H 07/09/20 13:45 Urine WBC Clumps PRESENT 07/09/20 13:45 Ur Squamous Epith Cells FEW Squamous (<= Few) 07/09/20 13:45 Urine Bacteria Many /HPF (None Seen) H 07/09/20 13:45 Ur Microscopic Review INDICATED 07/09/20 13:45 Urine Culture Comments INDICATED 07/09/20 13:45 Nasal Screen MRSA (PCR) NEGATIVE (NEGATIVE) 07/09/20 16:05 Coronavirus (PCR) NEGATIVE 07/10/20 16:20 - Procedures Procedures: Procedures INTRODUCTION OF ANTI-INFLAMMATORY INTO JOINTS, PERC APPROACH (03/30/16) INTRODUCTION OF LOCAL ANESTHETIC INTO JOINTS, PERC APPROACH (03/30/16) Sepsis Event Note (H) - Evaluation Current Stage of Sepsis: Septic shock Possible source of Sepsis: positive: Genitourinary - Sepsis Criteria Sepsis Criteria: Recorded Temperature greater than 38.3C or Less than 36C, Recorded Respiratory Rate greater than 20, SBP drop more than 40mHg, SBP less than 90 mmHg
[2020-07-16] MEDS: ATORVASTATIN 40 MG TABLET PO SCH (21:22)
[2020-07-17 05:07] LABS: BASOPHILS % (AUTO) 0.4 %; EOSINOPHILS # (AUTO) 0.4 10^3/uL (0.0-0.7); EOSINOPHILS % (AUTO) 3.6 %; HGB - HEMOGLOBIN 11.2 g/dL (12.0-16.0); LYMPHOCYTES % (AUTO) 10.2 %; MEAN CORPUSCULAR HEMOGLOBIN 30.2 pg (27.0-31.0); MEAN CORPUSCULAR HGB CONC 31.2 g/dL (32.0-36.0); MEAN CORPUSCULAR VOLUME 96.8 fL (81.0-99.0); MONOCYTES # (AUTO) 1.1 10^3/uL (0.0-1.0); MONOCYTES % (AUTO) 11.4 %; NEUTROPHILS # (AUTO) 7.2 10^3/uL (1.5-6.6); NEUTROPHILS % (AUTO) 73.9 %; PLT - PLATELET COUNT 352 10^3/uL (130-450); RED BLOOD COUNT 3.71 10^6/uL (4.20-5.40); RED CELL DISTRIBUTION WIDTH 13.3 % (12.0-15.0); WHITE BLOOD COUNT 9.8 x10^3/uL (4.8-10.8)
[2020-07-17 05:13] LABS: CALCIUM 8.6 mg/dL (8.5-10.3); CREATININE 0.8 mg/dL (0.4-1.0)
[2020-07-17 05:16] LABS: MAGNESIUM 2.3 mg/dL (1.7-2.8); PHOSPHORUS 2.4 mg/dL (2.5-4.6)
[2020-07-17] MEDS: SODIUM CHLORIDE FLUSH 0.9% 10 ML SYRINGE IVP SCH ×3 (06:38→18:12)
[2020-07-17] MEDS: MIDODRINE 2.5 MG TABLET PO SCH ×3 (08:45→18:11)
[2020-07-17] MEDS: SERTRALINE 50 MG TABLET PO SCH (08:45)
[2020-07-17] MEDS: NEUTRA-PHOS 250 MG TABLET PO SCH ×2 (08:45→10:54)
[2020-07-17] MEDS: FLUDROCORTISONE 0.1 MG TABLET PO SCH (08:45)
[2020-07-17] MEDS: LACTOBACILLUS RHAMNOSUS GG CAPSULE PO SCH (08:46)
[2020-07-17] MEDS: ASPIRIN EC 81 MG TABLET PO SCH (08:46)
[2020-07-17] MEDS: MEMANTINE 5 MG TABLET PO SCH ×2 (08:46→21:12)
[2020-07-17] MEDS: RIVAROXABAN 15 MG TABLET PO SCH (08:46)
[2020-07-17] MEDS: MEROPENEM 1 GM in SODIUM CHLORIDE 0.9% MINIBAG 100 ML IV SCH (10:21)
--- NOTE | 2020-07-17 12:53 | ADVANCE CARE PLANNING NOTE ---
Advance Care Planning - Planning Encounter Date: 07/17/20 Time: 12:00 Purpose: To discuss new decision about CODE status. Parties in Attendance: Present in the room were: This Hospitalist, the patient sitting up in a chair but unaware of the discussion, the patient's RN Angy Gonzalez, the patient's caregiver of 4 years Edna Suresh, the patient's son Neno. Decisional Capacity of the Patient: Patient has advanced dementia for 10 years, she is minimally communicative. She has no decisional capacity. - Diagnosis for Encounter (6) Advanced dementia Summary: Patient's alertness has improved, she has been sitting up in a chair for 2 days, awake and looking around. Her caregiver Edna states that this is how she acts, with the visible frown on her face, as she is trying to "figure out what is going on around her". Edna stated that she spoke with the children and said that she told them it would very likely be her that would need to start CPR if there was a CODE BLUE. Edna then started to be tearful and said that she could not bring it upon herself to cause rib fractures and lead to a prolonged painful course following that. - Encounter Goals of Care: Neno then stated that he has spoken to his 2 siblings and they have decided to change the patient's CODE STATUS to no CPR or defibrillation. I asked about intubation and Neno said that that would be a separate decision-making process by the 3 children. Plan: A POLST form will be completed, and orders will be changed to make the patient DNR. Code Status: Do Not Attempt Resuscitation Time spent on advance care plannin
--- NOTE | 2020-07-17 13:50 | PROVIDER PROGRESS NOTE ---
Assessment/Plan - Problem List (1) Hypotension Assessment/Plan: Her blood pressure still drops to the high 80s. This is on maximum Midrin 10 mg 3 times daily with meals and Florinef 0.1 mg daily. She is warm and dry and asymptomatic with this and is alert and appears to be at her baseline mental status. Continue with this current combination of medicines, no further IV fluids planned. I discussed with the caregiver who is currently at her bedside, Edna, that she will be discharged with new medicines to improve her blood pressure and that there will be instructions for what medicines to give and what to not give depending on daily blood pressure checks. (2) UTI due to extended-spectrum beta lactamase (ESBL) producing Escherichia coli Assessment/Plan: I spoke to infectious disease fellow, at [facility], on the med consult line. I reviewed the entire case and labs. The infectious disease doctor recommended that the Meropenem can stop today. The pt received 8 days of Meropenam. The infectious disease doctor also recommended vaginal estrogen gel which may help prevent recurrence of infections. This was reported to the son at bedside and caregiver at bedside. I will order intravag Estr cream, M-Fr, when Edna is the caregiver, because the weekend or nedw caregvers seem to be associated with a high occurrence of UTIs. Expect discharge to her residence is tomorrow. (3) Type 2 myocardial infarction due to shock Assessment/Plan: This patient's chronic low blood pressure prevents the use of beta-bella, SHELBY inhibitor, diuretics. She is on daily aspirin, started during this hospitalization, and we continued her statin (4) Acute systolic heart failure Assessment/Plan: LVEF on Echo was 50%, decreased from 60% 4 years ago. Her mild pulmonary volume overload during thus hospiutalization was managed by stopping IV fluids each time, no diuretics werew given, allowing the fluid to equilibrate. We will not oder chronic po diuretics due to low blood pressure and possible low p.o. intake in this patient with advanced dementia, who gets somnolent when has infections. (5) History of DVT (deep vein thrombosis) Assessment/Plan: She continues on her home dose of Xarelto while here (6) Advanced dementia Assessment/Plan: Patient appears to be at her baseline, she is sitting up in a chair, able to eat and swallow, looks around the room, is minimally communicative, shows expressions on her face. She has been out of bed to chair twice during this hospitalization, yesterday and today. The Physical Therapist is recommending home PT. This was discussed with the caregiver Edna and son Neno at the bedside and they are both in agreement. Will order home health for PT. (7) Septic shock Assessment/Plan: Resolved. (8) Hypoxia Assessment/Plan: Resolved. She is on room air. - Current Meds Current Meds: Current Medications Generic Name Dose Route Start Last Admin Trade Name Freq PRN Reason Stop Dose Admin Acetaminophen 650 mg 07/09/20 15:00 07/11/20 18:59 Tylenol PO 650 mg Q4HR PRN Administration Pain 1 to 4 Aspirin 81 mg 07/15/20 12:00 07/17/20 08:46 Ecotrin PO 81 mg DAILY ELISE Administration Atorvastatin Calcium 40 mg 07/09/20 21:00 07/16/20 21:22 Lipitor PO 40 mg QPM ELISE Administration Docusate Sodium 250 - 500 mg 07/11/20 09:00 07/16/20 10:06 Colace 250mg Capsule PO Not Given DAILY ELISE Fludrocortisone Acetate 0.1 mg 07/16/20 09:00 07/17/20 08:45 Florinef PO 0.1 mg DAILYWM ELISE Administration Lactobacillus Rhamnosus 1 cap 07/11/20 13:00 07/17/20 08:46 Culturelle PO 07/18/20 23:00 1 cap DAILY ELISE Administration Memantine 10 mg 07/09/20 21:00 07/17/20 08:46 Namenda PO 10 mg BID ELISE Administration Midodrine 10 mg 07/15/20 12:00 07/17/20 08:45 PO 10 mg TIDWM ELISE Administration Rivaroxaban 15 mg 07/10/20 09:00 07/17/20 08:46 Xarelto PO 15 mg DAILY ELISE Administration Senna 8.6 - 17.2 mg 07/12/20 09:00 07/16/20 10:36 Senokot PO Not Given DAILY ELISE Sertraline HCl 100 mg 07/10/20 09:00 07/17/20 08:45 Zoloft PO 100 mg DAILY ELISE Administration Sodium Chloride 10 ml 07/09/20 17:00 07/17/20 10:20 Normal Saline Flush 0.9% IVP 10 ml 0100,0900,1700 ELISE Administration Sodium Chloride 10 ml 07/09/20 15:00 07/16/20 10:22 Normal Saline Flush 0.9% IVP 10 ml PRN PRN Administration NEEDED PER PROVIDER ORDERS - Lab Result [place] Bone Diagrams: 07/17/20 04:30 07/17/20 04:30 - Additional Planning My Orders: My Active Orders 07/16/20 12:54 Consult [Consult Listing] .once 07/17/20 Evaluate and Treat PT [PT] Routine 07/17/20 10:15 COVID-19 REFERENCE TEST Routine 07/18/20 05:00 BMP - BASIC METABOLIC PANEL [CHEM] DAILYLAB BNP - B-NATRIURETIC PEPTIDE [IAI] DAILYLAB CBC - COMP BLD CT W/AUTO DIFF [HEME] DAILYLAB MG [MAGNESIUM] [CHEM] DAILYLAB Subjective - Subjective Patient Reports: Resting Comfortably (Patient is sitting up in a chair, swallowing her food, looking around, has a frown on her face, appears comfortable) Objective Vital Signs: Vital Signs - 24 hr 07/16/20 07/16/20 07/16/20 13:49 14:00 15:00 Temperature Heart Rate Heart Rate [ Activity] Heart Rate [ 57 L 60 65 Monitoring electrodes] Heart Rate [ Supine] Respiratory 12 24 Rate Blood Pressure [Activity] Blood Pressure 91/44 L 100/62 87/54 L [Right Brachial artery] Blood Pressure [Supine] O2 Saturation 95 95 07/16/20 07/16/20 07/16/20 15:05 16:00 17:00 Temperature 37 C 36.4 C L Heart Rate 55 L Heart Rate [ Activity] Heart Rate [ 65 58 L Monitoring electrodes] Heart Rate [ Supine] Respiratory 24 15 18 Rate Blood Pressure [Activity] Blood Pressure 99/50 L 87/45 L [Right Brachial artery] Blood Pressure [Supine] O2 Saturation 95 96 95 07/16/20 07/16/20 07/16/20 18:00 19:00 20:32 Temperature 37.1 C Heart Rate Heart Rate [ Activity] Heart Rate [ 60 65 67 Monitoring electrodes] Heart Rate [ Supine] Respiratory 24 14 15 Rate Blood Pressure [Activity] Blood Pressure 95/43 L 92/44 L 90/62 [Right Brachial artery] Blood Pressure [Supine] O2 Saturation 98 93 94 07/16/20 07/16/20 07/16/20 21:15 22:00 23:00 Temperature Heart Rate Heart Rate [ Activity] Heart Rate [ 65 60 59 L Monitoring electrodes] Heart Rate [ Supine] Respiratory 17 29 H 22 Rate Blood Pressure [Activity] Blood Pressure 103/53 L 108/46 L 104/77 [Right Brachial artery] Blood Pressure [Supine] O2 Saturation 96 95 95 07/17/20 07/17/20 07/17/20 00:00 00:59 02:00 Temperature 36.8 C Heart Rate Heart Rate [ Activity] Heart Rate [ 61 59 L 60 Monitoring electrodes] Heart Rate [ Supine] Respiratory 24 17 22 Rate Blood Pressure [Activity] Blood Pressure 80/70 L 93/53 L 108/48 L [Right Brachial artery] Blood Pressure [Supine] O2 Saturation 92 95 94 07/17/20 07/17/20 07/17/20 03:00 04:00 05:00 Temperature 36.9 C Heart Rate Heart Rate [ Activity] Heart Rate [ 59 L 60 59 L Monitoring electrodes] Heart Rate [ Supine] Respiratory 19 24 21 Rate Blood Pressure [Activity] Blood Pressure 107/49 L 102/49 L 88/47 L [Right Brachial artery] Blood Pressure [Supine] O2 Saturation 91 L 93 91 L 07/17/20 07/17/20 07/17/20 05:33 06:00 06:51 Temperature Heart Rate Heart Rate [ Activity] Heart Rate [ 91 62 Monitoring electrodes] Heart Rate [ Supine] Respiratory 24 29 H Rate Blood Pressure [Activity] Blood Pressure 92/47 L 101/45 L 99/74 [Right Brachial artery] Blood Pressure [Supine] O2 Saturation 92 93 07/17/20 07/17/20 07/17/20 07:30 08:00 08:30 Temperature 37.2 C Heart Rate Heart Rate [ Activity] Heart Rate [ 60 63 61 Monitoring electrodes] Heart Rate [ Supine] Respiratory 17 25 H 19 Rate Blood Pressure [Activity] Blood Pressure 91/44 L 95/77 89/50 L [Right Brachial artery] Blood Pressure [Supine] O2 Saturation 92 93 93 07/17/20 07/17/20 07/17/20 09:00 10:00 11:00 Temperature Heart Rate Heart Rate [ Activity] Heart Rate [ 59 L 56 L 65 Monitoring electrodes] Heart Rate [ Supine] Respiratory 13 19 20 Rate Blood Pressure [Activity] Blood Pressure 100/74 101/49 L 103/42 L [Right Brachial artery] Blood Pressure [Supine] O2 Saturation 95 92 95 07/17/20 07/17/20 07/17/20 11:30 12:00 13:00 Temperature 36.8 C Heart Rate Heart Rate [ 66 Activity] Heart Rate [ 63 62 Monitoring electrodes] Heart Rate [ 64 Supine] Respiratory 25 H 26 H Rate Blood Pressure 102/59 L [Activity] Blood Pressure 102/59 L 103/53 L [Right Brachial artery] Blood Pressure 103/42 L [Supine] O2 Saturation 94 94 Oxygen O2 Source [With Activity] Room air O2 Source [Without Activity] Room air O2 Source Room air I&O (Last 24 Hrs): Intake and Output Totals x24h 07/15/20 07/16/20 07/17/20 23:59 23:59 23:59 Intake Total 7777.948 0248.667 657.333 Output Total 2750 1250 700 Balance -1732.038 22.667 -42.667 General: Alert HEENT: Mucous membr. moist/pink Neck: Supple, No JVD Neuro: Alert, Disoriented, Other (Minimally communocative) Cardiovascular: Regular rate, No murmurs Respiratory: No respiratory distress, Breath sounds nml Abdomen: Normal bowel sounds, Soft Extremities: No edema - Results Results: Laboratory Results WBC 9.8 x10^3/uL (4.8-10.8) 07/17/20 04:30 RBC 3.71 10^6/uL (4.20-5.40) L 07/17/20 04:30 Hgb 11.2 g/dL (12.0-16.0) L 07/17/20 04:30 Hct 35.9 % (37.0-47.0) L 07/17/20 04:30 MCV 96.8 fL (81.0-99.0) 07/17/20 04:30 MCH 30.2 pg (27.0-31.0) 07/17/20 04:30 MCHC 31.2 g/dL (32.0-36.0) L 07/17/20 04:30 RDW 13.3 % (12.0-15.0) 07/17/20 04:30 Plt Count 352 10^3/uL (130-450) 07/17/20 04:30 MPV 11.0 fL (7.9-10.8) H 07/17/20 04:30 Neut # (Auto) 7.2 10^3/uL (1.5-6.6) H 07/17/20 04:30 Lymph # (Auto) 1.0 10^3/uL (1.5-3.5) L 07/17/20 04:30 [place] # (Auto) 1.1 10^3/uL (0.0-1.0) H 07/17/20 04:30 Eos # (Auto) 0.4 10^3/uL (0.0-0.7) 07/17/20 04:30 Baso # (Auto) 0.0 10^3/uL (0.0-0.1) 07/17/20 04:30 Absolute Nucleated RBC 0.00 x10^3/uL 07/17/20 04:30 Nucleated RBC % 0.0 /100WBC 07/17/20 04:30 VBG pH 7.404 (7.31-7.41) 07/12/20 04:45 Ionized Calcium 1.15 mmol/L (1.15-1.33) 07/12/20 04:45 Sodium 139 mmol/L (135-145) 07/17/20 04:30 Potassium 4.5 mmol/L (3.5-5.0) 07/17/20 04:30 Chloride 107 mmol/L (101-111) 07/17/20 04:30 Carbon Dioxide 26 mmol/L (21-32) 07/17/20 04:30 Anion Gap 6.0 (6-13) 07/17/20 04:30 BUN 16 mg/dL (6-20) 07/17/20 04:30 Creatinine 0.8 mg/dL (0.4-1.0) 07/17/20 04:30 Estimated GFR (MDRD) 69 (>89) L 07/17/20 04:30 Glucose 103 mg/dL (70-100) H 07/17/20 04:30 POC Whole Bld Glucose 126 mg/dL (70 - 100) H 07/11/20 20:56 Lactic Acid 1.4 mmol/L (0.5-2.2) 07/13/20 12:25 Calcium 8.6 mg/dL (8.5-10.3) 07/17/20 04:30 Phosphorus 2.4 mg/dL (2.5-4.6) L 07/17/20 04:30 Magnesium 2.3 mg/dL (1.7-2.8) 07/17/20 04:30 Total Bilirubin 0.4 mg/dL (0.2-1.0) 07/13/20 12:25 Direct Bilirubin < 0.1 mg/dL (0.1-0.5) L 07/13/20 12:25 AST 82 IU/L (10-42) H 07/13/20 12:25 ALT 99 IU/L (10-60) H 07/13/20 12:25 Alkaline Phosphatase 47 IU/L (42-121) 07/13/20 12:25 Troponin I High Sens 16.8 ng/L (2.3-14.8) H* 07/13/20 12:25 B-Natriuretic Peptide 477 pg/mL (5-100) H 07/17/20 04:30 Total Protein 4.9 g/dL (6.7-8.2) L 07/13/20 12:25 Albumin 2.3 g/dL (3.2-5.5) L 07/16/20 04:25 Globulin 2.6 g/dL (2.1-4.2) 07/13/20 12:25 Albumin/Globulin Ratio 1.3 (1.0-2.2) 07/09/20 11:30 TSH 2.95 uIU/mL (0.34-5.60) 07/11/20 04:20 Cortisol AM Sample 17.6 ug/dL 07/13/20 08:16 Urine Color YELLOW 07/09/20 13:45 Urine Clarity CLOUDY (CLEAR) 07/09/20 13:45 Urine pH 7.0 PH (5.0-7.5) 07/09/20 13:45 Ur Specific [place] 1.020 (1.002-1.030) 07/09/20 13:45 Urine Protein 30 mg/dL (NEGATIVE) H 07/09/20 13:45 Urine Glucose (UA) NEGATIVE mg/dL (NEGATIVE) 07/09/20 13:45 Urine Ketones NEGATIVE mg/dL (NEGATIVE) 07/09/20 13:45 Urine Occult Blood MODERATE (NEGATIVE) H 07/09/20 13:45 Urine Nitrite NEGATIVE (NEGATIVE) 07/09/20 13:45 Urine Bilirubin NEGATIVE (NEGATIVE) 07/09/20 13:45 Urine Urobilinogen 1 (NORMAL) E.U./dL (NORMAL) 07/09/20 13:45 Ur Leukocyte Esterase MODERATE (NEGATIVE) H 07/09/20 13:45 Urine RBC 0-5 /HPF (0-5) 07/09/20 13:45 Urine WBC >25 /HPF (0-5) H 07/09/20 13:45 Urine WBC Clumps PRESENT 07/09/20 13:45 Ur Squamous Epith Cells FEW Squamous (<= Few) 07/09/20 13:45 Urine Bacteria Many /HPF (None Seen) H 07/09/20 13:45 Ur Microscopic Review INDICATED 07/09/20 13:45 Urine Culture Comments INDICATED 07/09/20 13:45 Nasal Screen MRSA (PCR) NEGATIVE (NEGATIVE) 07/09/20 16:05 Coronavirus (PCR) NEGATIVE 07/10/20 16:20 - Procedures Procedures: Procedures INTRODUCTION OF ANTI-INFLAMMATORY INTO JOINTS, PERC APPROACH (03/30/16) INTRODUCTION OF LOCAL ANESTHETIC INTO JOINTS, PERC APPROACH (03/30/16) Sepsis Event Note (H) - Evaluation Current Stage of Sepsis: Septic shock Possible source of Sepsis: positive: Genitourinary - Sepsis Criteria Sepsis Criteria: Recorded Temperature greater than 38.3C or Less than 36C, Recorded Respiratory Rate greater than 20, SBP drop more than 40mHg, SBP less than 90 mmHg
[2020-07-17] MEDS ORDERED: ESTROGENS, CONJUGATED CREAM 30 GM TUBE VG SCH (14:07)
[2020-07-17] MEDS: SENNA 8.6 MG TABLET PO SCH (18:14)
[2020-07-17] MEDS: DOCUSATE SODIUM 250 MG CAPSULE PO SCH (18:14)
[2020-07-17] MEDS: ATORVASTATIN 40 MG TABLET PO SCH (21:11)
[2020-07-18] MEDS: SODIUM CHLORIDE FLUSH 0.9% 10 ML SYRINGE IVP PRN (05:08)
[2020-07-18] MEDS: SODIUM CHLORIDE FLUSH 0.9% 10 ML SYRINGE IVP SCH (05:08)
[2020-07-18 05:28] LABS: BASOPHILS % (AUTO) 0.3 %; EOSINOPHILS # (AUTO) 0.2 10^3/uL (0.0-0.7); EOSINOPHILS % (AUTO) 1.6 %; HGB - HEMOGLOBIN 11.1 g/dL (12.0-16.0); LYMPHOCYTES % (AUTO) 10.1 %; MEAN CORPUSCULAR HEMOGLOBIN 31.2 pg (27.0-31.0); MEAN CORPUSCULAR HGB CONC 32.7 g/dL (32.0-36.0); MEAN CORPUSCULAR VOLUME 95.2 fL (81.0-99.0); MEAN PLATELET VOLUME 10.9 fL (7.9-10.8); MONOCYTES # (AUTO) 1.2 10^3/uL (0.0-1.0); NEUTROPHILS # (AUTO) 7.4 10^3/uL (1.5-6.6); NEUTROPHILS % (AUTO) 75.2 %; PLT - PLATELET COUNT 366 10^3/uL (130-450); RED BLOOD COUNT 3.56 10^6/uL (4.20-5.40); RED CELL DISTRIBUTION WIDTH 13.2 % (12.0-15.0); WHITE BLOOD COUNT 9.9 x10^3/uL (4.8-10.8)
[2020-07-18 05:38] LABS: CALCIUM 8.6 mg/dL (8.5-10.3); CREATININE 0.9 mg/dL (0.4-1.0); MAGNESIUM 2.3 mg/dL (1.7-2.8)
--- NOTE | 2020-07-18 08:00 | Discharge Plan ---
Discharge Plan Problem Reviewed?: Yes Disposition: Home Health Service Condition: Fair Prescriptions: Fludrocortisone [Florinef] 0.1 mg PO DAILYWM #30 tablet Midodrine HCl 10 mg PO TIDWM #90 tablet Estrogens, Conjugated Cream [Premarin Cream] 1 applic VG MOTUWETHFR@1100 #1 tube Diet: Soft (Pureed food recommended) Activity Restrictions: Activity as Tolerated Shower Restrictions: No Assistance Devices: Wheelchair, Walker Instruction Topics: Fludrocortisone tablets, Midodrine tablets Health Concerns: Admitted with septic shock from a Urinary tract infection which was treated with a course of antibiotics. The Infectious Disease specialist recommended using vaginal estrogen, which may help prevent recurrent UTIs. The septic shock caused a small heart attack. Then there was mild congestive heart failure from slightly depressed heart function. Her chronic low blood pressure is now being managed with new medications. Resume all prehospital medications and care by her caregiver(s). Is advised to minimize use of the sedative (Ativan), which would drop her blood pressure. The new prescriptions were electronically sent to her [facility] in [place]. She should see her PCP for hospital follow-up in the next 1 to 2 weeks for any adjustment of medications. A new POLST form was signed, choosing no CPR (new DNR status). This green POLST form should go home with you and be posted on the refrigerator or somewhere prominent, in case paramedics need to arrive, it would direct them regarding pro per management. A referral was sent to Home Health service for physical therapy to be done at the patient's home. Plan of Treatment: Check blood pressure every morning after arising. Administer the new Midodrine 3 times a day (around each mealtime), and the morning Florinef, if the blood pressure is less than 120 (top number). Do not give it if the top number is greater than 120. The goal is to keep the top number close to 90. Encourage fluids for good hydration which will also help the blood pressure stay normal. Care Goals: Improvement in symptoms and stabilization are the goals. Also, a new DNR status was established. Assessment: Written instructions were sent home with the caregiver and discussed with the children. Additional Instructions or Follow Up instructions: If the patient has new or worsening symptoms, call the PCP for advice or come to the ER. Follow-Up Care: Home Health - PT No Smoking: If you smoke, Please STOP! Call for help. Follow-up with: Denisse Rose PA-C [Primary Care Provider] -
--- NOTE | 2020-07-18 08:20 | DISCHARGE SUMMARY ---
Discharge Summary Admit Date: 07/09/20 Discharge Date: 07/18/20 Discharging Provider: Dr Leonie Holland Primary Care Provider: MARY Rose Condition at Discharge: Fair Discharge Disposition: [facility] History of Present Illness: From the admission H&P of Dr. Cameron Mancini: This is a 84-year-old female with a past medical history significant for advanced dementia, history of DVT on Xarelto who presents today after her caregiver found her to have a fever of 101.3 F and low blood pressure. The patient has advanced dementia and is nonverbal and is unable to provide a history at this time. I was able to speak with her daughter who was able to provide a little more history. She states she was diagnosed with urinary tract infection about 2 weeks ago and completed a course of antibiotics for 3 days. She states she believes that her mother is currently not at her baseline neurologic status; she is excessively somnolent. She reports that she is not v venus verbal at baseline. She is concerned her caregivers do not take care of her and whenever she is under caregivers she become sick. She initially did not want her mother hospitalized as her mom does not do well when she is in the hospital. She has noted that her mother is shaking which is new. She tells me that her mother is on Xarelto for history of DVT. In the emergency department, her temperature was 38 C. Initial blood pressure was 108/94 but this decreased to 90 systolic. Her heart rate was in the 60s. She was not tachypneic and saturating well on room air. Her white count was normal. Her lactic acid was also normal. Her urinalysis revealed moderate Leukocyte Estrace, greater than 25 WBCs, many bacteria. She was given meropenem IV in the emergency department. Given the above findings, Hospitalist team was consulted for admission. I discussed goals of care with the patient's daughter and daughter states the patient is a FULL CODE. - HOSPITAL COURSE Hospital Course: (1) Septic shock She was admitted to the ICU and started on iv fluids, antibiotics and required Levophed drip iv. The source of infection was the UTI. Blood cultures were neg to date. The Levophed was weaned to off after several days and she defervesced and sepsis improved. (2) UTI due to extended-spectrum beta lactamase (ESBL) producing Escherichia coli Prior urine cultures grew E. coli as well as Pseudomonas. She was put on Meropenem IV and Vancomycin IV empirically given the sepsis and to cover for potential Enterococcus. The urine culture grew ESBL-producing E coli , sensitive only to Imipenam and Nitrofurantoin. I spoke to infectious disease fellow, at [facility], on the med consult line. The patient received 8 days of iv Meropenam. The infectious disease doctor also recommended vaginal estrogen gel which may help prevent recurrence of infections. She was started on intravag Estr cream, M-Fr, when Edna, the longtime caregiver is present, because the weekend caregivers seem to be associated with a high occurrence of UTIs. (3) Type 2 myocardial infarction due to shock This patient's chronic low blood pressure prevents the use of beta-bella, SHELBY inhibitor, diuretics. She was put on daily aspirin, started during this hospitalization, and we continued her statin. (4) Acute systolic heart failure LVEF by Echo done this admission was 50%, decreased from EF 60% 4 years ago. Her mild pulmonary volume overload during thus hospitalization was managed by stopping IV fluids each time, no diuretics were given due to chronic low blood pressure, allowing the fluid to equilibrate. (5) Hypotension Her blood pressure continued to drop intermittently to the high 80s. The daughter reported that the patient always runs low BPs and has had syncope twice in her past. She was started on Midodrin tid with meals and needed Florinef 0.1 mg daily added, to maintain BP over 90 systolic consistently. She was warm and dry and asymptomatic with this and alert and appeared to be at her baseline mental status. The caregiver Edna received instructions for when not to give Midodrin depending on daily blood pressure readings. (6) History of DVT (deep vein thrombosis) She was continued on her home dose of Xarelto while here. (7) Advanced dementia When the obtundation improved, she appeared to be at her baseline, as per the caregiver, Edna, who came to be at her bedside and provided alot of insight into her dementia. The patient was sitting up in a chair, able to eat and swallow but needed to be fed, was looking around the room, was minimally communicative but showed expressions on her face. The Physical Therapist recommended home PT. This was discussed with the caregiver Edna and son Neno at the bedside and they were both in agreement, and it was ordered. During this hospitalization, there were 3 meetings with the son Neno and daughter about the patient's Full Code status. The daughter expressed "don't even mention Palliative Care or Hospice Care". When the sequelae of CPR were discussed and Edna further spoke t o them both, the 3 children agreed to make her DNR (to mean no CPR or defibrilation), but they still wanted full medical management, to include intubation and ventilator, if needed in the future. - ALLERGIES Allergies/Adverse Reactions: Allergies Allergy/AdvReac Type Severity Reaction Status Date / Time No Known Drug Allergies Allergy Verified 07/20/20 11:25 - MEDICATIONS Home Medications: Ambulatory Orders Medication Instructions Recorded Confirmed Acetaminophen [Tylenol] 650 mg PO Q4HR PRN #0 tablet 02/15/17 07/20/20 Aspirin [Aspirin EC] 325 mg PO DAILY 02/15/17 07/20/20 Atorvastatin Calcium 40 mg PO QPM 02/15/17 07/20/20 Memantine HCl [Namenda] 10 mg PO BID 02/15/17 07/20/20 Sertraline HCl [Zoloft] 100 mg PO DAILY 02/15/17 07/20/20 Rivaroxaban [Xarelto] 15 mg PO DAILY 07/09/20 07/20/20 bisacodyL [Dulcolax] 1 tab ORAL DAILY PRN 07/09/20 07/20/20 Estrogens, Conjugated Cream 1 applic VG MOTUWETHFR@1100 #1 tube 07/18/20 07/20/20 [Premarin Cream] Fludrocortisone [Florinef] 0.1 mg PO DAILYWM #30 tablet 07/18/20 07/20/20 Midodrine HCl 10 mg PO TIDWM #90 tablet 07/18/20 07/20/20 Polyethylene Glycol 3350 [Miralax] 17 gm PO DAILY PRN #1 bottle 07/20/20 - PHYSICAL EXAM AT DISCHARGE General Appearance: positive: No acute distress, Other (Somnolent, laying in bed) Eyes Bilateral: positive: Normal inspection, EOMI ENT: positive: ENT inspection nml, No signs of dehydration Neck: positive: Nml inspection, No JVD Respiratory: positive: No respiratory distress, Breath sounds nml Cardiovascular: positive: No murmur, Irregularly irregular Abdomen: positive: Non-tender, Nml bowel sounds, No distention Skin: positive: Color nml, Warm, Dry Extremities: positive: No pedal edema Neurologic/Psychiatric: positive: Disoriented to person, Disoriented to place, Disoriented to time, Other (Minimally communicative, intermittently follows commands.) - LABS Result Diagrams: 07/18/20 05:01 07/18/20 05:01 - SEPSIS Current Stage of Sepsis: Septic shock Possible source of Sepsis: Genitourinary Sepsis Criteria: Recorded Temperature greater than 38.3C or Less than 36C, Rec orded Respiratory Rate greater than 20, SBP drop more than 40mHg, SBP less than 90 mmHg - FOLLOW UP Follow Up: See PCP in hospital follow-up in 1-2 weeks. - TIME SPENT Time Spent in Discharge (Minutes): 60
[2020-07-18] MEDS: FLUDROCORTISONE 0.1 MG TABLET PO SCH (10:02)
[2020-07-18] MEDS: RIVAROXABAN 15 MG TABLET PO SCH (10:02)
[2020-07-18] MEDS: MEMANTINE 5 MG TABLET PO SCH (10:03)
[2020-07-18] MEDS: MIDODRINE 2.5 MG TABLET PO SCH (10:04)
[2020-07-18] MEDS: SERTRALINE 50 MG TABLET PO SCH (10:05)
[2020-07-18] MEDS: LACTOBACILLUS RHAMNOSUS GG CAPSULE PO SCH (10:06)
[2020-07-18] MEDS: SENNA 8.6 MG TABLET PO SCH (10:09)
[2020-07-18] MEDS: ASPIRIN EC 81 MG TABLET PO SCH (10:10)
[2020-07-18] MEDS: DOCUSATE SODIUM 250 MG CAPSULE PO SCH (10:11)
[2020-07-18 12:04] VITALS: BP 95/52
== END 2020-07-18 13:10 | disposition home health service (06) | DRG 871 ==
LOC: EDUNIT# → ED 11:10 → ICU 15:00
PROVIDERS: ADMIT Internal Medicine; ATTEND Internal Medicine
PROC: 02HV33Z Insertion of Infusion Device into Superior Vena Cava, Percutaneous Approach (ICD-10-PCS; principal; 2020-07-09)
DX: A41.51 Sepsis due to Escherichia coli [E. coli] (principal); R65.21 Severe sepsis with septic shock; I21.A1 Myocardial infarction type 2; I50.21 Acute systolic (congestive) heart failure; N30.01 Acute cystitis with hematuria; E78.00 Pure hypercholesterolemia, unspecified; F03.90 Unspecified dementia, unspecified severity, without behavioral disturbance, psychotic disturbance, mood disturbance, and anxiety; F32.9 Major depressive disorder, single episode, unspecified; H40.9 Unspecified glaucoma; H91.90 Unspecified hearing loss, unspecified ear; I95.9 Hypotension, unspecified; R09.02 Hypoxemia; Z66 Do not resuscitate; Z20.828 Contact with and (suspected) exposure to other viral communicable diseases; Z86.718 Personal history of other venous thrombosis and embolism; Z79.82 Long term (current) use of aspirin; Z79.01 Long term (current) use of anticoagulants
CPT/HCPCS: 36415; 51701; 70450; 71045; 74177; 80048; 80053; 80076; 81001; 82040; 82330; 82533; 83605; 83735; 83880; 84100; 84443; 84484; 85025; 87040; 87086; 87150; 87181; 87635; 93005; 93306; 96361; 96365; 96375; 97110; 97161; 99285; A9270; J2185; J3370; J7120; Q9967; 80202; 81003

== ENCOUNTER 2020-07-18 13:14 | Outpatient (CLI) | payer OTHER | END 2020-07-18 13:15 | disposition home or self-care (01) | LOC: EMS 13:14 | PROVIDERS: ATTEND Surgery | DX: F03.90 Unspecified dementia, unspecified severity, without behavioral disturbance, psychotic disturbance, mood disturbance, and anxiety (principal); R55 Syncope and collapse; R41.82 Altered mental status, unspecified | CPT/HCPCS: A0425; A0428 ==

== ENCOUNTER 2020-07-20 10:38 | Outpatient (CLI) | payer OTHER | END 2020-07-20 10:39 | disposition critical access hospital (66) | LOC: EMS 10:38 | PROVIDERS: ATTEND Surgery | DX: R14.0 Abdominal distension (gaseous) (principal) | CPT/HCPCS: A0425; A0429 ==

== ENCOUNTER 2020-07-20 11:05 | Emergency (ER) | payer OTHER ==
--- NOTE | 2020-07-20 11:22 | ED Physician Documentation ---
PD HPI ABD PAIN - Stated complaint Stated Complaint: ABD PX - History obtained from History obtained from: Family, EMS - History of Present Illness Timing - onset: How many days ago (several) Timing - duration: Days (several) Timing - details: Gradual onset, Still present (The patient's son and daughter (who lives out of state) state the patient did have some abdominal fullness when she was in the hospital recently and this has increased in the last couple of days. They states she has had bowel movements. No apparent abdominal pain or vomiting. Concern for ascites.) Quality: Fullness/distended, Other (small bulge around umbilicus.). No: Cramping Location: All over / everywhere (General fullness and distention without any apparent abdominal pain. She does not seem to have any stomach tenderness. Family and caregiver have noticed a small bulge around the bellybutton in the last couple of days. It was not there when she was in the hospital recently.) Improved by: No: BM Associated symptoms: No: Fever, Nausea, Vomiting Recently seen: Emergency Dept, Admitted (She is admitted for urinary tract infection with concern of sepsis and transient hypotension. Treated in the hospital for 8 days with meropenem. Discharged few days ago. Reportedly she platt d some fluid overload while in the hospital and was diuresed with improvement in the leg edema and dyspnea.) Review of Systems Unable to obtain: Dementia, Other (info from family) Constitutional: denies: Fever Respiratory: denies: Dyspnea, Cough GI: reports: Constipation (hs had constipation in the past, without this much abd fullness, per family.). denies: Vomiting : denies: Dysuria, Frequency PD PAST MEDICAL HISTORY - Past Medical History Cardiovascular: High cholesterol, Deep vein thrombosis Respiratory: Other Neuro: Dementia Endocrine/Autoimmune: None GI: None ELECTROPHYSIOLOGY TECH: None : None HEENT: Glaucoma, Chronic hearing loss Psych: Depression Musculoskeletal: Osteoarthritis Derm: None - Past Surgical History Past Surgical History: Yes /ELECTROPHYSIOLOGY TECH: section - Present Medications Home Medications: Ambulatory Orders Medication Instructions Recorded Confirmed Acetaminophen [Tylenol] 650 mg PO Q4HR PRN #0 tablet 02/15/17 07/20/20 Aspirin [Aspirin EC] 325 mg PO DAILY 02/15/17 07/20/20 Atorvastatin Calcium 40 mg PO QPM 02/15/17 07/20/20 Memantine HCl [Namenda] 10 mg PO BID 02/15/17 07/20/20 Sertraline HCl [Zoloft] 100 mg PO DAILY 02/15/17 07/20/20 Rivaroxaban [Xarelto] 15 mg PO DAILY 07/09/20 07/20/20 bisacodyL [Dulcolax] 1 tab ORAL DAILY PRN 07/09/20 07/20/20 Estrogens, Conjugated Cream 1 applic VG MOTUWETHFR@1100 #1 tube 07/18/20 07/20/20 [Premarin Cream] Fludrocortisone [Florinef] 0.1 mg PO DAILYWM #30 tablet 07/18/20 07/20/20 Midodrine HCl 10 mg PO TIDWM #90 tablet 07/18/20 07/20/20 Polyethylene Glycol 3350 [Miralax] 17 gm PO DAILY PRN #1 bottle 07/20/20 - Allergies Allergies/Adverse Reactions: Allergies Allergy/AdvReac Type Severity Reaction Status Date / Time No Known Drug Allergies Allergy Verified 07/20/20 11:25 - Social History Does the pt smoke?: No Smoking Status: Never smoker Does the pt drink ETOH?: No Does the pt have substance abuse?: No - Immunizations Immunizations are current?: Yes - POLST Patient has POLST: No PD ED PE NORMAL - Vitals Vital signs reviewed: Yes - General General: No: Alert and oriented X 3 (eyes open but nonverbal Responds to touch anywhere with grimace. Abd does not seem tender.) - HEENT HEENT: Atraumatic - Neck Neck: Supple, no meningeal sign, No adenopathy - Cardiac Cardiac: RRR, No murmur - Respiratory Respiratory: Clear bilaterally - Abdomen Abdomen: Soft, No organomegaly, Other (There is a small periumbilical hernia 2 to 3 cm which is soft and easily reducible. Otherwise the abdomen is distended with increased bowel sounds but no obvious tenderness or guarding.). No: Normal bowel sounds (increased) - Female Female : Deferred - Rectal Rectal: Other (Stool fullness in the rectal vault which is medium firm. I did break it up digitally. There was not enough firmness to it to be able to digita lly disimpact per se.) - Back Back: No CVA TTP - Derm Derm: Normal color, Warm and dry - Extremities Extremities: No tenderness to palpate, No edema, No calf tenderness / cord - Neuro Neuro: No motor deficit Results - Vitals Vitals: Vital Signs - 24 hr 07/20/20 07/20/20 07/20/20 11:14 11:25 13:28 Temperature 36.4 C L 36.4 C L Heart Rate 61 60 57 L Respiratory 24 24 27 H Rate Blood Pressure 103/56 L 103/56 L 104/62 O2 Saturation 98 93 94 07/20/20 15:04 Temperature Heart Rate 58 L Respiratory 23 Rate Blood Pressure 106/69 O2 Saturation 94 Oxygen O2 Source [With Activity] Room air O2 Source [Without Activity] Room air O2 Source Room air - Labs Labs: Laboratory Tests 07/20/20 07/20/20 07/20/20 11:24 11:24 11:24 WBC 9.9 RBC 3.76 L Hgb 11.7 L Hct 35.8 L MCV 95.2 MCH 31.1 H MCHC 32.7 RDW 13.1 Plt Count 440 MPV 10.8 Neut # (Auto) 7.7 H Lymph # (Auto) 1.0 L Hitchcock # (Auto) 1.0 Eos # (Auto) 0.2 Baso # (Auto) 0.1 Absolute Nucleated RBC 0.00 Nucleated RBC % 0.0 Sodium 140 Potassium 4.4 Chloride 107 Carbon Dioxide 25 Anion Gap 8.0 BUN 20 Creatinine 0.9 Estimated GFR (MDRD) 60 L Glucose 109 H Lactic Acid 1.2 Calcium 8.7 Magnesium 2.6 Total Bilirubin 0.7 AST 57 H ALT 84 H Alkaline Phosphatase 53 Total Protein 6.1 L Albumin 2.7 L Globulin 3.4 Albumin/Globulin Ratio 0.8 L Lipase 33 Urine Color Urine Clarity Urine pH Ur Specific [place] Urine Protein Urine Glucose (UA) Urine Ketones Urine Occult Blood Urine Nitrite Urine Bilirubin Urine Urobilinogen Ur Leukocyte Esterase Urine RBC Urine WBC Ur Squamous Epith Cells Amorphous Sediment Urine Bacteria Ur Microscopic Review Urine Culture Comments 07/20/20 11:52 WBC RBC Hgb Hct MCV MCH MCHC RDW Plt Count MPV Neut # (Auto) Lymph # (Auto) Hitchcock # (Auto) Eos # (Auto) Baso # (Auto) Absolute Nucleated RBC Nucleated RBC % Sodium Potassium Chloride Carbon Dioxide Anion Gap BUN Creatinine Estimated GFR (MDRD) Glucose Lactic Acid Calcium Magnesium Total Bilirubin AST ALT Alkaline Phosphatase Total Protein Albumin Globulin Albumin/Globulin Ratio Lipase Urine Color LT. YELLOW Urine Clarity CLOUDY Urine pH 7.0 Ur Specific Empire 1.015 Urine Protein TRACE Urine Glucose (UA) NEGATIVE Urine Ketones NEGATIVE Urine Occult Blood SMALL H Urine Nitrite NEGATIVE Urine Bilirubin NEGATIVE Urine Urobilinogen 0.2 (NORMAL) Ur Leukocyte Esterase TRACE H Urine RBC 6-10 H Urine WBC 4-5 Ur Squamous Epith Cells FEW Squamous Amorphous Sediment Moderate Urine Bacteria Many H Ur Microscopic Review INDICATED Urine Culture Comments INDICATED - Rads (name of study) abd/pelvic CT Radiology: Prelim report reviewed (Similar to CT of 07/09/2020. Similar kidney cysts. Similar fluid in the vaginal canal. Interval increase in the amount of obstipation/constipation. Full stomach. No free fluid or free air.), See rad report PD MEDICAL DECISION MAKING - ED course Complexity details: reviewed results (No free fluid nor free air. No obstruction pattern. A significant amount of stool is present throughout the colon and rectal area), considered differential, d/w family (Her son is present in the department and we talked with her daughter on his phone on speaker phone as well) ED course: The family members are concerned about other potential causes given that she has had constipation in the past without this much distention. We did do labs and CT scan to look for other concurrent problems. No other cause for the distention is identified aside from the obstipation. Departure - Departure Disposition: 01 Home, Self Care Clinical Impression: Abdominal distension Constipation Qualifiers: Constipation type: unspecified constipation type Qualified Code(s): K59.00 - Constipation, unspecified Condition: Stable Record reviewed to determine appropriate education?: Yes Instructions: ED Abdominal Pain Unkn Cause, ED Constipation Follow-Up: Denisse Rose PA-C [Primary Care Provider] - Prescriptions: Polyethylene Glycol 3350 [Miralax] 17 gm PO DAILY PRN #1 bottle PRN Reason: Constipation Comments: The CT scan shows a significant amount of stool still throughout the colon and rectum. No other obvious acute cause of distention is identified. The urine test has a few white cells and bacteria seen which is a common contaminant or present in noninfected urine test. The paulson indicator would be presence of nitrates or a large amount of white cells. At this point we will wait for the urine culture to see if there is still any sign of infection. Continue the current medications at home. Add MiraLAX stool softener/laxative once or twice daily for the next several days to week to promote further stool output. I understand she has been having stools at home but there is still a goodly amount of stool present based on the CT scan. I believe this is the cause of her distention at this time. Recheck if not improved over the next couple of days and sooner if any abdominal pain, vomiting, bloody stools, fever or other concerns. Otherwise I would anticipate improvement in the abdominal fullness over the next 2 to 3 days. Recheck if not.
[2020-07-20] MEDS ORDERED: IOVERSOL 320 100 ML VIAL IVP ONE ×2 (11:30→12:23)
[2020-07-20 11:46] LABS: BASOPHILS # (AUTO) 0.1 10^3/uL (0.0-0.1); BASOPHILS % (AUTO) 0.5 %; EOSINOPHILS # (AUTO) 0.2 10^3/uL (0.0-0.7); EOSINOPHILS % (AUTO) 1.5 %; HGB - HEMOGLOBIN 11.7 g/dL (12.0-16.0); MEAN CORPUSCULAR HEMOGLOBIN 31.1 pg (27.0-31.0); MEAN CORPUSCULAR HGB CONC 32.7 g/dL (32.0-36.0); MEAN CORPUSCULAR VOLUME 95.2 fL (81.0-99.0); MEAN PLATELET VOLUME 10.8 fL (7.9-10.8); NEUTROPHILS # (AUTO) 7.7 10^3/uL (1.5-6.6); NEUTROPHILS % (AUTO) 77.6 %; PLT - PLATELET COUNT 440 10^3/uL (130-450); RED BLOOD COUNT 3.76 10^6/uL (4.20-5.40); RED CELL DISTRIBUTION WIDTH 13.1 % (12.0-15.0); WHITE BLOOD COUNT 9.9 x10^3/uL (4.8-10.8)
--- NOTE | 2020-07-20 11:48 | XRAY Report ---
PROCEDURE: Chest 1 View X-Ray INDICATIONS: chest pain TECHNIQUE: One view of the chest was acquired. COMPARISON: 07/15/2020 FINDINGS: Surgical changes and devices: None. Lungs and pleura: No pleural effusions or pneumothorax. Lungs demonstrate diffuse coarsening of the interstitial markings and persistent blunting of the right hemidiaphragm and possibly left. Minor re sidual opacity present in the right perihilar region, decreased compared to the prior study. Mediastinum: Mediastinal contours appear normal. Heart size is normal. Bones and chest wall: No suspicious bony lesions. Deformity of remote distal clavicle fracture. Ove rlying soft tissues appear unremarkable. IMPRESSION: 1. Improving aeration in the right perihilar region suggesting resolving pneumonia or CHF. 2. Persistent trace right pleural effusion. Reviewed by: Lu Magallanes MD on 07/20/2020 11:46 AM PDT Approved by: Lu Magallanes MD on 07/20/2020 11:46 AM PDT Station ID: [id number]
[2020-07-20 11:57] LABS: ALBUMIN 2.7 g/dL (3.2-5.5); ALBUMIN/GLOBULIN RATIO 0.8 (1.0-2.2); BILIRUBIN,TOTAL 0.7 mg/dL (0.2-1.0); CALCIUM 8.7 mg/dL (8.5-10.3); CREATININE 0.9 mg/dL (0.4-1.0); MAGNESIUM 2.6 mg/dL (1.7-2.8); TOTAL PROTEIN 6.1 g/dL (6.7-8.2)
[2020-07-20 11:59] LABS: BILIRUBIN,URINE NEGATIVE (NEGATIVE); GLUCOSE, URINE (UA) NEGATIVE (NEGATIVE); KETONES,URINE (UA) NEGATIVE (NEGATIVE); LEUKOCYTE ESTERASE, URINE TRACE (NEGATIVE); NITRITE,URINE NEGATIVE (NEGATIVE); OCCULT BLOOD,URINE SMALL (NEGATIVE); PROTEIN,URINE TRACE mg/dL (NEGATIVE); UROBILINOGEN,URINE 0.2 (NORMAL) E.U./dL (NORMAL)
[2020-07-20 12:00] LABS: CLARITY,URINE CLOUDY (CLEAR)
[2020-07-20 12:06] LABS: SQUAMOUS EPITHELIAL CELL,UR FEW Squamous (<= Few)
[2020-07-20 12:07] LABS: AMORPHOUS SEDIMENT,UR Moderate /LPF; BACTERIA,URINE Many /HPF (None Seen)
--- NOTE | 2020-07-20 12:45 | CT Report ---
PROCEDURE: Abdomen/Pelvis W INDICATIONS: abd distension and pain CONTRAST: IV CONTRAST: Optiray 320 ml: 100 PO CONTRAST: *NO PO CONTRAST TECHNIQUE: After the administration of 100 cc Optiray 320 IV contrast, 5 mm thick sections acquired from the hortensia phragms to the symphysis. 5 mm thick coronal and sagittal reformats were acquired. For radiation do se reduction, the following was used: automated exposure control, adjustment of mA and/or kV accordi ng to patient size. COMPARISON: 07/09/2020 FINDINGS: Image quality: Excellent. ABDOMEN: Lung bases: Septal thickening and scattered groundglass opacities the lung bases, right worse than le ft. No focal consolidation. This is similar to slightly worse compared to the prior study. Heart siz e is normal. Solid organs: Liver and spleen are normal in size and enhancement. Gallbladder is decompressed. Bi liary system is non dilated. Pancreas enhances normally. No adrenal nodules. Kidneys demonstrate n ormal size and enhancement, without hydronephrosis. There are 2 cysts in the midpole of the left kid norma. Peritoneum and bowel: The stomach is fluid-filled and has a thin wall. There is extensive stool thro ughout the colon and rectum. No small bowel obstruction. No free fluid or air. Nodes and vessels: No retroperitoneal or mesenteric adenopathy by size criteria. Aorta and inferior vena cava are normal in size. Heavy abdominal aortic atherosclerotic calcification. Miscellaneous: No ventral hernias. PELVIS: Genitourinary: Bladder wall thickness is normal. The uterus is present. There is fluid filling and distending the vaginal canal. The cervix is within normal limits. No suspicious ovarian masses. Miscellaneous: No inguinal hernias or adenopathy. Bones: No suspicious bony lesions. No vertebral body compression fractures. IMPRESSION: 1. Development of significant obstipation and fecal retention. 2. Stable appearance of fluid-filled and distended vaginal canal. 3. Persistent patchy bibasilar opacities and septal thickening at the lung bases, potentially seconda ry to hypoventilatory changes. Reviewed by: Lu Magallanes MD on 07/20/2020 12:44 PM PDT Approved by: Lu Magallanes MD on 07/20/2020 12:44 PM PDT Station ID: [id number]
[2020-07-20] MEDS ORDERED: MAGNESIUM CITRATE 296 ML BOTTLE PO STA (13:01)
[2020-07-20] MEDS ORDERED: MINERAL OIL ENEMA 133 ML BOTTLE RC STA (13:01)
[2020-07-20 15:05] VITALS: BP 106/69
== END 2020-07-20 16:06 | disposition home or self-care (01) ==
LOC: EDUNIT# → ED 11:05
DX: R10.9 Unspecified abdominal pain (principal); K59.00 Constipation, unspecified; E78.5 Hyperlipidemia, unspecified; F03.90 Unspecified dementia, unspecified severity, without behavioral disturbance, psychotic disturbance, mood disturbance, and anxiety; Z86.718 Personal history of other venous thrombosis and embolism
CPT/HCPCS: 36415; 51701; 51798; 71045; 74177; 80053; 81001; 83605; 83690; 83735; 85025; 87086; 99284; A9270; Q9967; 81003

== ENCOUNTER 2020-07-20 16:06 | Outpatient (CLI) | payer OTHER | END 2020-07-20 16:07 | disposition home or self-care (01) | LOC: EMS 16:06 | PROVIDERS: ATTEND Surgery | DX: K59.00 Constipation, unspecified (principal); F03.90 Unspecified dementia, unspecified severity, without behavioral disturbance, psychotic disturbance, mood disturbance, and anxiety; Z74.01 Bed confinement status | CPT/HCPCS: A0425; A0428 ==

== ENCOUNTER 2020-10-28 15:30 | Outpatient (CLI) | payer OTHER | END 2020-10-28 23:59 | disposition home or self-care (01) | LOC: LAB.R 15:30 | PROVIDERS: ATTEND Registered Nurse | DX: N30.90 Cystitis, unspecified without hematuria (principal) | CPT/HCPCS: 87086; 87181 ==

== ENCOUNTER 2020-11-11 08:00 | Outpatient (CLI) | payer OTHER | END 2020-11-11 23:59 | disposition home or self-care (01) | LOC: LAB.R 08:00 | PROVIDERS: ATTEND Registered Nurse | DX: N39.0 Urinary tract infection, site not specified (principal) | CPT/HCPCS: 87086; 87181 ==

== ENCOUNTER 2020-11-27 08:00 | Outpatient (CLI) | payer OTHER | END 2020-11-27 23:59 | disposition home or self-care (01) | LOC: LAB.R 08:00 | PROVIDERS: ATTEND Registered Nurse | DX: N30.90 Cystitis, unspecified without hematuria (principal) | CPT/HCPCS: 87086; 87181 ==

== ENCOUNTER 2021-01-02 12:35 | Outpatient (CLI) | payer MEDICARE ==
[2021-01-02 15:17] LABS: BASOPHILS % (AUTO) 0.6 %; EOSINOPHILS # (AUTO) 0.1 10^3/uL (0.0-0.7); EOSINOPHILS % (AUTO) 1.7 %; HCT - HEMATOCRIT 46.8 % (37.0-47.0); HGB - HEMOGLOBIN 14.6 g/dL (12.0-16.0); LYMPHOCYTES # (AUTO) 1.4 10^3/uL (1.5-3.5); LYMPHOCYTES % (AUTO) 19.2 %; MEAN CORPUSCULAR HEMOGLOBIN 29.9 pg (27.0-31.0); MEAN CORPUSCULAR HGB CONC 31.2 g/dL (32.0-36.0); MEAN CORPUSCULAR VOLUME 95.9 fL (81.0-99.0); MEAN PLATELET VOLUME 11.5 fL (7.9-10.8); MONOCYTES # (AUTO) 0.8 10^3/uL (0.0-1.0); MONOCYTES % (AUTO) 11.6 %; NEUTROPHILS # (AUTO) 4.8 10^3/uL (1.5-6.6); NEUTROPHILS % (AUTO) 66.6 %; PLT - PLATELET COUNT 273 10^3/uL (130-450); RED BLOOD COUNT 4.88 10^6/uL (4.20-5.40); RED CELL DISTRIBUTION WIDTH 14.5 % (12.0-15.0); WHITE BLOOD COUNT 7.1 x10^3/uL (4.8-10.8)
== END 2021-01-02 12:36 | disposition home or self-care (01) ==
LOC: LAB.S 12:35
PROVIDERS: ATTEND Internal Medicine
DX: Z79.899 Other long term (current) drug therapy (principal)
CPT/HCPCS: 36415; 85025